=== PATIENT | male | born 1985 | race Caucasian/White ===

== ENCOUNTER → 2016-08-10 | Outpatient (CLI) | payer BC, OTHER ==
[~2016-08-10] MED LIST: DIVA125C PO; MULTTAB PO
[2016-08-10 14:32] LABS: BASO % 0.3 %; BASO ABS # 0.02 K/uL (0-0.2); COMPLETE YES; HEMATOCRIT 47.5 % (42-52); IG% 0.1 %; LYMPH % 27.8 %; LYMPH ABS # 2.21 K/uL (1.2-3.4); MEAN CELL VOLUME 92.6 fL (80-100); MEAN CORPUSCULAR HEMOGLOBIN 30.6 pg (25-34); MEAN CORPUSCULAR HGB CONC 33.1 g/dl (32-36); MEAN PLATELET VOLUME 11.5 fL (7.4-10.4); MONO % 12.3 %; NEUT % 58.5 %; PLATELET COUNT 195 K/uL (130-400); RED BLOOD COUNT 5.13 M/uL (4.7-6.1); WHITE BLOOD COUNT 7.94 K/uL (4.8-10.8)
[2016-08-10 15:24] LABS: ALT/SGPT 29 U/L (12-78); AST/SGOT 17 U/L (15-37); BLOOD UREA NITROGEN 9 mg/dl (7-18); BUN/CREATININE RATIO 20.7 (10-20); CALCIUM 9.6 mg/dl (8.5-10.1); CARBON DIOXIDE 36 mmol/L (21-32); CHLORIDE 100 mmol/L (98-107); CREATININE 0.43 mg/dl (0.60-1.40); GLUCOSE 74 mg/dl (70-99); POTASSIUM 4.2 mmol/L (3.5-5.1); SODIUM 138 mmol/L (136-145)
[2016-08-10 15:27] LABS: ALB/GLOB RATIO 0.9 (0.9-2); ALKALINE PHOSPHATASE 82 U/L (45-117)
== END | disposition home or self-care (01) ==
LOC: C.LABBC 10:06
PROVIDERS: ATTEND Internal Medicine
DX: G40.909 Epilepsy, unspecified, not intractable, without status epilepticus (principal)

== ENCOUNTER → 2017-07-25 | Outpatient (CLI) | payer BC, OTHER ==
[2017-07-25 14:10] LABS: HEMATOCRIT 45.4 % (42-52); HEMOGLOBIN 15.4 g/dL (14.0-18.0); MEAN CORPUSCULAR HEMOGLOBIN 31.6 pg (25-34); MEAN CORPUSCULAR HGB CONC 33.9 g/dl (32-36); MEAN PLATELET VOLUME 10.7 fL (7.4-10.4); PLATELET COUNT 216 K/uL (130-400); RED CELL DISTRIBUTION WIDTH CV 13.2 % (11.5-14.5)
[2017-07-25 14:21] LABS: ALBUMIN 3.3 gm/dl (3.4-5.0); ALT/SGPT 21 U/L (12-78); AST/SGOT 15 U/L (15-37); BLOOD UREA NITROGEN 10 mg/dl (7-18); CALCIUM 9.6 mg/dl (8.5-10.1); CARBON DIOXIDE 34 mmol/L (21-32); CREATININE 0.43 mg/dl (0.60-1.40); GLUCOSE 86 mg/dl (70-99); POTASSIUM 4.1 mmol/L (3.5-5.1); SODIUM 134 mmol/L (136-145)
[2017-07-25 14:23] LABS: ALKALINE PHOSPHATASE 80 U/L (45-117); TOTAL PROTEIN 7.7 gm/dl (6.4-8.2)
== END | disposition home or self-care (01) ==
LOC: C.LABBC 10:34
PROVIDERS: ATTEND Internal Medicine
DX: G40.909 Epilepsy, unspecified, not intractable, without status epilepticus (principal)

== ENCOUNTER 2021-06-11 12:12 | Inpatient (IN) ==
--- NOTE | 2021-06-11 12:33 | Emergency Department Note ---
Impression & Plan Acute hypoxemic respiratory failure, Scoliosis, Aspiration pneumonia, CP (cerebral palsy), Constipation ED Provider Note NAME: ANGELINE PIPER AGE: 35 SEX: M : 1985 ARRIVES VIA: Walk-In INFORMANT: Patient, ED PROVIDER(S): Dylan Canela MD Chief Complaint: Leg swelling, concern for left lower extremity fracture HPI: Patient does present on history is limited given the patient's history of intellectual disability, cerebral palsy and nonverbal status. Family was concerned as the patient has had increasing Gerardo fussy disposition and he seems to be putting his right leg over his left. The patient does have a prior history of a left leg fracture but was only placed in a cast never receiving surgery. The patient has had a bit of a wet cough. He is vaccinated for COVID. Patient does take everything by mouth and has been compliant with medications. No at home oxygen use. No recent falls or trauma. No recent travel. Parents are concerned about the possibility of osteoporosis and subsequent fracture. No reported fevers at home vomiting but the patient does suffer from chronic constipation. That he try some stool softeners but this has not seemed to greatly improve his symptoms. ROS: See HPI for pertinent positives and negatives. A total of 10 systems were reviewed and otherwise negative. Past medical history: See below Surgical history: See below Social history: See below Physical Exam: GENERAL: Small for age, wearing a mask. EYE EXAM: Normal conjunctiva. Opens and closes eyes. OROPHARYNX: Moist mucus membranes. NECK: Supple, no nuchal rigidity, no adenopathy, non-tender. No signs of meningismus. Not stridulous. LUNGS: Coarse sounds throughout. Normal chest wall mechanics. HEART: NSR, no MRG. ABDOMEN: Abdomen soft, no obvious masses. BACK: No cyst noted. SKIN: No rashes and no bruising. UPPER EXTREMITIES: Upper extremities are grossly normal. LOWER EXTREMITIES: Mild left lower extremity swelling compared to right. NEURO EXAM: Awake does not follow commands. Differential diagnoses: Reactive airway disease, pneumonia, pneumothorax, COPD, CHF, infections, cardiac ischemia, pulmonary embolism, musculoskeletal, gastrointestinal, as well as other pathologies. Course: Patient was seen and evaluated the bedside. Full history physical exam was performed. Imaging Studies: See Below Cardiac monitoring: An order was placed for continuous cardiac monitoring. The monitor shows a rate of 92 with sinus rhythm. MDM: Patient was seen due to concern for the possibility left lower extremity fracture. The patient did have a wet cough and was noted to be hypoxic in triage. Blood work is obtained along with blood cultures. I did speak with pharmacy given the patient's history of allergies and for treatment for possible community-acquired pneumonia. Recommended cefdinir and Flagyl. These were ordered. Child was ordered a dose of lactulose as well as family relates that he does have a history of some constipation. Patient is a white count of 12 with a normal H&H and platelet count. Patient's kidney function is unremarkable but does have hyponatremia noted. The patient did receive a breathing treatment. Troponin not detectable. Flu and COVID negative. Chest x-ray does not show any obvious findings but given the concern for hypoxia and the risk of aspiration patient did receive the antibiotics. No obvious new fracture but the patient does have a chronic left hip dislocation. After further discussion with the family as he does have some swelling will obtain a DVT ultrasound. After further discussion the patient was initially hesitant to have the patient admitted but given the patient's concern for hypoxemia and the fact that the [facility] do not have home oxygen readily available for the patient do believe that he would benefit from inpatient treatment and admission. I did speak with the on-call hospitalist Dr. Cat and the patient was admitted to the medicine service Critical Care: I have personally spent 55 minutes of critical care time in direct management of this patient. This includes bedside care, interpretation of diagnostic studies, and testing, discussion with consultants, patient, and family members, and other require inpatient management activities. This 55 minutes is in excess of all separately billable procedures. Past Med/Surg History Medical History (Updated 06/12/21 @ 08:52 by Dylan Canela MD) CP (cerebral palsy) Scoliosis Seizure Surgical History History of hip surgery S/P appendectomy S/P ventricular shunt placement Family History Grandmother (Maternal) Atrial fibrillation Grandfather (Paternal) Atrial fibrillation Social History Smoking Status: Never smoker Hx Alcohol Use: No Hx Substance Use: No Preferred Language: Togolese Communication Ability: Unable Visual Impairment: No Limitations Hearing Ability: Normal Collator Required: No Beliefs That Will Affect Care: None marital status: Single Current Living Situation: Family Other Information That Helps Us Care for You: No other: wheelchair dependence Feels Safe at Home: Yes Immunizations: Vaccinated for COVID-19 Allergies Allergies Allergy/AdvReac Type Severity Reaction Status Date / Time ampicillin Allergy Unknown . Verified 06/11/21 16:22 clindamycin Allergy Unknown . Verified 06/11/21 16:22 gentamicin Allergy Unknown UNKNOWN Unverified 06/11/21 16:22 Penicillins Allergy Unknown . Verified 06/11/21 16:22 Home Meds Previous Rx's Medication Instructions Recorded Depakote Sprinkles 125 mg 500 mg PO BID 90 Days #720 cap NS 11/04/20 capsule,delayed release (divalproex) albuterol sulfate 2.5 mg INH Q6H PRN #180 ml 03/31/21 Results & Data (ED) Vital Signs Vital Signs - 24 hr 06/11/21 12:26 06/11/21 14:13 06/11/21 14:14 Temperature 35.5 C L Temperature Source Temporal Artery Scan Pulse Rate 98 H Pulse Rate [Left Finger] 95 H Pulse Rate from SpO2 Sensor Pulse Rhythm [Left Finger] Regular Pulse Strength [Left Finger] Normal Respiratory Rate 16 20 Respiratory Effort / Characteristics Non-Labored Spontaneous Non-Labored Spontaneous Respiratory Depth Normal Normal Respiratory Pattern Regular Regular Blood Pressure 145/91 H Blood Pressure [Right Arm] 145/82 H Blood Pressure Mean 109 Blood Pressure Mean [Right Arm] 103 Blood Pressure Position Sitting Blood Pressure Position [Right Arm] Sitting Pulse Oximetry 88 L 95 82 L Oxygen Delivery Method Room Air Oxymask Oxygen Flow Rate 4 0 Sepsis Recent Fever Within 48 Hours No Sepsis New/Unexplained Change in Mental Status No Sepsis Action Taken by Nursing No Action Required Oxygen Flow Rate - Titration 4 Pulse Oximetry Post Tiitration 94 06/11/21 15:19 06/11/21 17:01 06/11/21 21:00 Temperature Temperature Source Pulse Rate Pulse Rate [Left Finger] 63 76 120 H Pulse Rate from SpO2 Sensor Pulse Rhythm [Left Finger] Regular Pulse Strength [Left Finger] Respiratory Rate 18 20 14 Respiratory Effort / Characteristics Spontaneous Spontaneous Respiratory Depth Normal Respiratory Pattern Blood Pressure Blood Pressure [Right Arm] 145/80 H Blood Pressure Mean Blood Pressure Mean [Right Arm] 101 Blood Pressure Position Blood Pressure Position [Right Arm] Pulse Oximetry 94 94 98 Oxygen Delivery Method Oxymask Oxymask Oxygen Flow Rate 5 4 Sepsis Recent Fever Within 48 Hours Sepsis New/Unexplained Change in Mental Status Sepsis Action Taken by Nursing Oxygen Flow Rate - Titration Pulse Oximetry Post Tiitration 06/11/21 23:00 06/11/21 23:48 06/12/21 00:00 Temperature Temperature Source Pulse Rate 104 H 85 88 Pulse Rate [Left Finger] Pulse Rate from SpO2 Sensor 101 H 93 H Pulse Rhythm [Left Finger] Pulse Strength [Left Finger] Respiratory Rate 18 17 14 Respiratory Effort / Characteristics Respiratory Depth Respiratory Pattern Blood Pressure 105/72 Blood Pressure [Right Arm] Blood Pressure Mean 83 Blood Pressure Mean [Right Arm] Blood Pressure Position Blood Pressure Position [Right Arm] Pulse Oximetry 97 97 97 Oxygen Delivery Method Oxymask Room Air Oxymask Oxygen Flow Rate 3 Sepsis Recent Fever Within 48 Hours Sepsis New/Unexplained Change in Mental Status Sepsis Action Taken by Nursing Oxygen Flow Rate - Titration Pulse Oximetry Post Tiitration Home Medications Current Medication List: was personally reviewed by me Laboratory Data Attestation: I reviewed the patient's lab results. Result diagrams: 06/11/21 13:10 06/11/21 13:10 Lab Results 06/11/21 06/11/21 06/11/21 Range/Units 13:10 13:10 15:06 WBC 12.27 H (4.8-10.8) K/uL RBC 4.77 (4.7-6.1) M/uL Hgb 15.1 (14.0-18.0) g/dL Hct 45.1 (42-52) % MCV 94.5 (80-100) fL MCH 31.7 (25-34) pg MCHC 33.5 (32-36) g/dL RDW Std Deviation 46.5 H (36.4-46.3) fL RDW Coeff of Tabby 13.4 (11.5-14.5) % Plt Count 188 (130-400) K/uL MPV 10.0 (7.4-10.4) fL Immature Gran % (Auto) 0.2 % Neut % (Auto) 77.6 % Lymph % (Auto) 9.2 % Barren % (Auto) 12.5 % Eos % (Auto) 0.4 % Baso % (Auto) 0.1 % Neut # (Auto) 9.52 H (1.4-6.5) K/uL Lymph # (Auto) 1.13 L (1.2-3.4) K/uL Barren # (Auto) 1.53 H (0.11-0.59) K/uL Eos # (Auto) 0.05 (0-0.5) K/uL Baso # (Auto) 0.01 (0-0.2) K/uL Immature Gran # (Auto) 0.03 H (0.00-0.02) K/uL Sodium 132 L (136-145) mmol/L Potassium 3.9 (3.5-5.1) mmol/L Chloride 91 L (98-107) mmol/L Carbon Dioxide 35 H (21-32) mmol/L Anion Gap 6 (3-11) BUN 8 (6-23) mg/dl Creatinine 0.32 L (0.6-1.4) mg/dl Est Cr Clr Drug Dosing Not Reportable Est GFR ( Amer) > 150.0 ml/min Est GFR (Non-Af Amer) > 150.0 ml/min BUN/Creatinine Ratio 25.0 H (10-20) Glucose 113 H (70-99(Fasting)) mg/dl Calcium 9.0 (8.5-10.1) mg/dl Total Bilirubin 0.3 (0.2-1.0) mg/dl AST 22 (13-39) U/L ALT 17 (7-52) U/L Alkaline Phosphatase 78 (34-104) U/L Troponin I < 0.03 (0-0.04) ng/ml Total Protein 7.1 (6.0-8.3) gm/dl Albumin 3.9 (3.4-5.0) gm/dl Globulin 3.2 (2.5-4.0) gm/dl Albumin/Globulin Ratio 1.2 (0.9-2) TSH (0.300-4.500) uIu/ml Influ A Molecular Assay (Negative) Influ B Molecular Assay (Negative) SARS-CoV-2, RNA, NAAT NEGATIVE (NEGATIVE) 06/11/21 06/11/21 Range/Units 15:06 Unknown WBC (4.8-10.8) K/uL RBC (4.7-6.1) M/uL Hgb (14.0-18.0) g/dL Hct (42-52) % MCV (80-100) fL MCH (25-34) pg MCHC (32-36) g/dL RDW Std Deviation (36.4-46.3) fL RDW Coeff of Tabby (11.5-14.5) % Plt Count (130-400) K/uL MPV (7.4-10.4) fL Immature Gran % (Auto) % Neut % (Auto) % Lymph % (Auto) % Barren % (Auto) % Eos % (Auto) % Baso % (Auto) % Neut # (Auto) (1.4-6.5) K/uL Lymph # (Auto) (1.2-3.4) K/uL Barren # (Auto) (0.11-0.59) K/uL Eos # (Auto) (0-0.5) K/uL Baso # (Auto) (0-0.2) K/uL Immature Gran # (Auto) (0.00-0.02) K/uL Sodium (136-145) mmol/L Potassium (3.5-5.1) mmol/L Chloride (98-107) mmol/L Carbon Dioxide (21-32) mmol/L Anion Gap (3-11) BUN (6-23) mg/dl Creatinine (0.6-1.4) mg/dl Est Cr Clr Drug Dosing Est GFR ( Amer) ml/min Est GFR (Non-Af Amer) ml/min BUN/Creatinine Ratio (10-20) Glucose (70-99(Fasting)) mg/dl Calcium (8.5-10.1) mg/dl Total Bilirubin (0.2-1.0) mg/dl AST (13-39) U/L ALT (7-52) U/L Alkaline Phosphatase (34-104) U/L Troponin I (0-0.04) ng/ml Total Protein (6.0-8.3) gm/dl Albumin (3.4-5.0) gm/dl Globulin (2.5-4.0) gm/dl Albumin/Globulin Ratio (0.9-2) TSH 2.914 (0.300-4.500) uIu/ml Influ A Molecular Assay Negative (Negative) Influ B Molecular Assay Negative (Negative) SARS-CoV-2, RNA, NAAT (NEGATIVE) Administered Medications Albuterol (Albuterol 0.083% Nebu Soln 3 Ml Vial) 2.5 mg NEB Q6R CHERIE; Protocol Stop: 07/12/21 04:11 Last Admin: 06/12/21 07:22 Dose: 2.5 mg Documented by: [id number] Admin: 06/12/21 05:06 Dose: Not Given Documented by: [id number] Divalproex Sodium (Divalproex Sodium Sprinkle/Del-Rel 125 Mg Cap) 500 mg PO BID CHERIE Stop: 07/12/21 04:29 Last Admin: 06/12/21 04:59 Dose: 500 mg Documented by: [id number] Ampicillin Sodium/Sulbactam Sodium 1,500 mg/ Sodium Chloride 104 mls @ 200 mls/hr IV Q6H CHERIE; Protocol Stop: 06/18/21 19:59 Last Infusion: 06/12/21 05:23 Dose: 0 mls/hr Documented by: [id number] Admin: 06/12/21 04:40 Dose: 200 mls/hr Documented by: [id number] Infusion: 06/11/21 21:11 Dose: 0 mls/hr Documented by: [id number] Admin: 06/11/21 20:39 Dose: 200 mls/hr Documented by: [id number] Discontinued Medications Acetaminophen (Acetaminophen 325 Mg Tab) 650 mg PO NOW STA Stop: 06/11/21 20:00 Last Admin: 06/11/21 21:32 Dose: Not Given Documented by: [id number] Acetaminophen (Acetaminophen 325 Mg Tab) Confirm Administered Dose 650 mg .ROUTE .STK-MED ONE Stop: 06/11/21 20:22 Last Admin: 06/11/21 20:40 Dose: 650 mg Documented by: [id number] Albuterol (Albut/Ipratrop 3mg/0.5mg Neb 3 Ml Vial) 3 ml NEB NOW STA; Protocol Stop: 06/11/21 12:57 Last Admin: 06/11/21 13:23 Dose: 3 ml Documented by: [id number] Albuterol (Albut/Ipratrop 3mg/0.5mg Neb 3 Ml Vial) 12 ml NEB ONE ONE; Protocol Stop: 06/11/21 14:56 Last Admin: 06/11/21 15:17 Dose: 12 ml Documented by: [id number] Ceftriaxone Sodium (Rocephin) 1,000 mg in 50 mls @ 100 mls/hr IV NOW STA Stop: 06/11/21 15:45 Last Infusion: 06/11/21 16:18 Dose: 0 mls/hr Documented by: [id number] Admin: 06/11/21 15:28 Dose: 100 mls/hr Documented by: [id number] Lactulose (Lactulose Syrup 20 Gm/30 Ml Udc) 20 gm PO NOW STA Stop: 06/11/21 15:52 Last Admin: 06/11/21 16:30 Dose: 20 gm Documented by: [id number] Metronidazole (Metronidazole 500 Mg Tab) 500 mg PO NOW STA Stop: 06/11/21 15:17 Last Admin: 06/11/21 16:22 Dose: 500 mg Documented by: [id number] Imaging Data Radiologist's Impression: Femur X-Ray 06/11/21 12:56 XR femur LT 2V routine CLINICAL HISTORY: h/o CP, osteoporosis, ?frx, prior distal femur frx COMPARISON: Abdominal series May 08, 2013. FINDINGS: Left femoral head is partially obscured but no acute fracture within the left femur is identified. There is chronic left hip dislocation and deformity of the left femoral head and acetabulum. No suspicious osseous lesion is present. IMPRESSION: 1. No acute fracture within the left femur. 2. Chronic left hip dislocation with chronic deformity of the left hip, acetabulum and knee. ACT 112: Negative or not required by law. Electronically signed by: Edward Westfall M.D. 06/11/2021 2:22 PM Hip/Pelvis X-Ray 06/11/21 12:56 XR hip LT 2V w pelvis CLINICAL HISTORY: Left hip pain. Evaluate for fracture. COMPARISON: Abdominal series May 08, 2013. FINDINGS: IT SALES CONSULTANT shunt catheter is partially imaged. There is a large amount stool within the rectum. Although suboptimally assessed on this exam, no left hip fracture is noted. There is chronic superior dislocation of the left femur, unchanged. Chronic deformity of the left acetabulum and left femoral head is noted. Left femoral head is partially obscured. IMPRESSION: 1. Left femoral head partially obscured but no acute fracture identified within the left hip. 2. Chronic left hip dislocation and deformity of the left acetabulum, unchanged since radiographs of May 08, 2013. 3. Large amount stool within the rectum. ACT 112: Negative or not required by law. Electronically signed by: Edward Westfall M.D. 06/11/2021 2:20 PM Chest X-Ray 06/11/21 12:57 XR chest 1V not portable CLINICAL HISTORY: weakness COMPARISON STUDY: Chest radiograph May 08, 2013. FINDINGS: Calcification suggestive of encrustation of the IT SALES CONSULTANT shunt is noted. IT SALES CONSULTANT shunt is partially imaged. Evaluation of the chest is difficult given severe scoliosis and chronic chest wall deformity. No gross abnormalities are identified. Large amount of stool is noted within the rectum. No pneumothorax. No definite pleural effusion. IMPRESSION: 1. Difficult study to interpret given severe scoliosis and congenital chest wall deformity. However, no acute findings identified. 2. Large amount stool within the rectum. 3. Calcifications suggestive of encrustation of visualized portions of the IT SALES CONSULTANT shunt catheter. ACT 112: Negative or not required by law. Electronically signed by: Edward Westfall M.D. 06/11/2021 2:24 PM Venous Doppler Study 06/11/21 16:19 LEFT LOWER EXTREMITY VENOUS DOPPLER CLINICAL HISTORY: Left leg swelling. COMPARISON STUDY: No previous studies for comparison. TECHNIQUE: Sonography of the deep venous system of the left lower extremity was performed. Compression and augmentation were evaluated. FINDINGS: The left common femoral, superficial femoral and popliteal veins were compressible. Augmentation was normal. Flow was shown within the deep calf vessels although the calf vessels were suboptimally assessed in this patient. Left lower extremity edema was noted. IMPRESSION: No evidence of deep venous thrombus within the left lower extremity although calf vessels difficult to assess. ACT 112: Negative or not required by law. Electronically signed by: Edward Westfall M.D. 06/11/2021 5:55 PM Discharge Plan Visit Data Chief Complaint: Swelling/Edema to Extremity Stated Complaint: LEFT LE SWELLING ED Provider: Dylan Canela Discharge Problem: Acute hypoxemic respiratory failure, Scoliosis, Aspiration pneumonia, CP (cerebral palsy), Constipation Patient Disposition: Admitted As Inpatient Discharge Instructions Interventions: ED Discharge Assessment Last Done: 06/12/21 02:59
[2021-06-11] MEDS ORDERED: ALBUT/IPRATROP 3MG/0.5MG NEB 3 ML VIAL NEB STA (12:56)
[2021-06-11 13:27] LABS: Basophils # (auto) 0.01 K/uL (0-0.2); Basophils % (auto) 0.1 %; Eosinophils # (auto) 0.05 K/uL (0-0.5); Eosinophils % (auto) 0.4 %; Hematocrit (blood only) 45.1 % (42-52); Hemoglobin 15.1 g/dL (14.0-18.0); Immature Granulocytes # (auto) 0.03 K/uL (0.00-0.02); Immature Granulocytes % (auto) 0.2 %; Lymphocytes # (auto) 1.13 K/uL (1.2-3.4); Lymphocytes % (auto) 9.2 %; Mean Corpuscular Hemoglobin 31.7 pg (25-34); Mean Corpuscular Hgb Conc 33.5 g/dL (32-36); Mean Corpuscular Volume 94.5 fL (80-100); Monocytes # (auto) 1.53 K/uL (0.11-0.59); Monocytes % (auto) 12.5 %; Neutrophils # (auto) 9.52 K/uL (1.4-6.5); Neutrophils % (auto) 77.6 %; Platelet Count 188 K/uL (130-400); RDW Coefficient of Variation 13.4 % (11.5-14.5); RDW Standard Deviation 46.5 fL (36.4-46.3); Red Blood Count 4.77 M/uL (4.7-6.1); White Blood Count 12.27 K/uL (4.8-10.8)
[2021-06-11 13:55] LABS: Alanine Aminotransferase 17 U/L (7-52); Albumin Globulin Ratio 1.2 (0.9-2); Albumin Level 3.9 gm/dl (3.4-5.0); Alkaline Phosphatase 78 U/L (34-104); Anion Gap 6 (3-11); Aspartate Aminotransferase 22 U/L (13-39); Bilirubin,Total 0.3 mg/dl (0.2-1.0); Blood Urea Nitrogen 8 mg/dl (6-23); Carbon Dioxide 35 mmol/L (21-32); Chloride 91 mmol/L (98-107); Est GFR (African American) > 150.0 ml/min; Est GFR (Non-African American) > 150.0 ml/min; Globulin 3.2 gm/dl (2.5-4.0); Glucose 113 mg/dl (70-99(Fasting)); Potassium 3.9 mmol/L (3.5-5.1); Sodium 132 mmol/L (136-145); Total Protein 7.1 gm/dl (6.0-8.3)
[2021-06-11 13:56] LABS: Troponin I < 0.03 ng/ml (0-0.04)
--- NOTE | 2021-06-11 14:22 | XRay Report ---
XR hip LT 2V w pelvis CLINICAL HISTORY: Left hip pain. Evaluate for fracture. COMPARISON: Abdominal series May 08, 2013. FINDINGS: BUSINESS SERVICES SPECIALIST SALES shunt catheter is partially imaged. There is a large amount stool within the rectum. Al though suboptimally assessed on this exam, no left hip fracture is noted. There is chronic superior d islocation of the left femur, unchanged. Chronic deformity of the left acetabulum and left femoral he ad is noted. Left femoral head is partially obscured. IMPRESSION: 1. Left femoral head partially obscured but no acute fracture identified within the left hip. 2. Chronic left hip dislocation and deformity of the left acetabulum, unchanged since radiographs of May 08, 2013. 3. Large amount stool within the rectum. ACT 112: Negative or not required by law. Electronically signed by: Edward Westfall M.D. 06/11/2021 2:20 PM
--- NOTE | 2021-06-11 14:23 | XRay Report ---
XR femur LT 2V routine CLINICAL HISTORY: h/o CP, osteoporosis, ?frx, prior distal femur frx COMPARISON: Abdominal series May 08, 2013. FINDINGS: Left femoral head is partially obscured but no acute fracture within the left femur is sherrill ntified. There is chronic left hip dislocation and deformity of the left femoral head and acetabulum. No suspicious osseous lesion is present. IMPRESSION: 1. No acute fracture within the left femur. 2. Chronic left hip dislocation with chronic deformity of the left hip, acetabulum and knee. ACT 112: Negative or not required by law. Electronically signed by: Edward Westfall M.D. 06/11/2021 2:22 PM
--- NOTE | 2021-06-11 14:26 | XRay Report ---
XR chest 1V not portable CLINICAL HISTORY: weakness COMPARISON STUDY: Chest radiograph May 08, 2013. FINDINGS: Calcification suggestive of encrustation of the PROPERTY INSURANCE INSPECTOR shunt is noted. PROPERTY INSURANCE INSPECTOR shunt is partially im aged. Evaluation of the chest is difficult given severe scoliosis and chronic chest wall deformity. N o gross abnormalities are identified. Large amount of stool is noted within the rectum. No pneumothor ax. No definite pleural effusion. IMPRESSION: 1. Difficult study to interpret given severe scoliosis and congenital chest wall deformity. However, no acute findings identified. 2. Large amount stool within the rectum. 3. Calcifications suggestive of encrustation of visualized portions of the PROPERTY INSURANCE INSPECTOR shunt catheter. ACT 112: Negative or not required by law. Electronically signed by: Edward Westfall M.D. 06/11/2021 2:24 PM
[2021-06-11] MEDS ORDERED: ALBUT/IPRATROP 3MG/0.5MG NEB 3 ML VIAL NEB ONE (14:55)
[2021-06-11] MEDS ORDERED: metroNIDAZOLE 500 MG TAB PO STA (15:16)
[2021-06-11] MEDS ORDERED: cefTRIAXone SODIUM 1,000 MG/50 ML BAG IV STA (15:16)
[2021-06-11 15:37] LABS: Influenza A virus by PCR Negative (Negative); Influenza B virus by PCR Negative (Negative)
[2021-06-11] MEDS ORDERED: LACTULOSE SYRUP 20 GM/30 ML UDC PO STA (15:51)
--- NOTE | 2021-06-11 17:57 | Ultrasound Report ---
LEFT LOWER EXTREMITY VENOUS DOPPLER CLINICAL HISTORY: Left leg swelling. COMPARISON STUDY: No previous studies for comparison. TECHNIQUE: Sonography of the deep venous system of the left lower extremity was performed. Compressi on and augmentation were evaluated. FINDINGS: The left common femoral, superficial femoral and popliteal veins were compressible. Augmen tation was normal. Flow was shown within the deep calf vessels although the calf vessels were subopti ivanna assessed in this patient. Left lower extremity edema was noted. IMPRESSION: No evidence of deep venous thrombus within the left lower extremity although calf vessels difficult to assess. ACT 112: Negative or not required by law. Electronically signed by: Edward Westfall M.D. 06/11/2021 5:55 PM
[2021-06-11] MEDS ORDERED: ACETAMINOPHEN 325 MG TAB PO STA (19:59)
--- NOTE | 2021-06-11 20:03 | History & Physical Report ---
Date of Service June 11, 2021 Assessment & Plan (1) Aspiration pneumonia: Plan: Recorded hypoxia on admission, mildly elevated WBC and NLR on oxygen - imaging studies are difficult to ascertain diagnosis - lung assessment with some scattered rhonchi - no sputum production - Unasyn 1 GM q6 IV - Schedule nebs for 24 hours - PCT in am (2) Left leg pain: Plan: Left leg with edema from knee down- parents originally thought it started in his quadricep - Continue to evaluate for cause of pain and edema - leg is not warm and without erythema - ultrasound without VTE - Patient does normally cross his legs with that leg being on the bottom - History of broken leg on that side as well (3) Constipation: Plan: Noted on imaging - patient has had 2 bm since then - hold on further aggressive regime - he is normally on mirilax every 3 days at home- will continue daily x2 here (4) Seizure: Plan: Continue Depakote (5) Scoliosis: Plan: chronic with cp (6) CP (cerebral palsy): Plan: No acute issues (7) Abdominal pain: Plan: ? Abdominal pain as this with constipation on arrival maybe causing some of his symptoms - continue with bowel support - will need to follow symptoms and labs History of Present Illness Primary Care Provider: Alexys Villalta MD 35 YOM with past medical history of: Cerebral Palsy, seizure disorder, constipation, scoliosis, EXTRUSION OPERATOR shunt in place, asthma. Patient came to the EMD today with his family for concern of left leg swelling and unlocalized discomfort. The patient does get agitated when he is in pain, but obviously he is unable to localize to where. He has been for the past 2 days been getting more agitated crying when he is being moved. In the EMD he was also noted to be hypoxic in the 80s on room air. There was concern for possible aspiration pneumonia with hypoxia. He had CXR completed and is difficult to interpret secondary to his underlying process. Had routine labs performed as well as ultrasound of his lower extremities to exclude dvt, and evaluation of his left leg with femur and hip and pelvis films. No acute process identified, but was notable for stool burden. He was also given a dose of lactulose and Unasyn in the EMD. The patient does have nebulizers at home, but he does not receive them very often. She endorses that he does have a cough occasionally but is able to expectorate his secretions, and these are normally clear white. Patient has not had any fevers and no reports of aspiration by the family. His WBC are mildly elevated to 12 with elevated NLR. His mom does not endorse any increase frequency in his urination or changes. His Covid test is and influenza is negative. Allergies Allergy/AdvReac Type Severity Reaction Status Date / Time ampicillin Allergy Unknown . Verified 06/11/21 16:22 clindamycin Allergy Unknown . Verified 06/11/21 16:22 gentamicin Allergy Unknown UNKNOWN Unverified 06/11/21 16:22 Penicillins Allergy Unknown . Verified 06/11/21 16:22 Home Medications Medication Instructions Recorded Confirmed Type Depakote Sprinkles 125 mg 500 mg PO BID 90 Days #720 cap NS 11/04/20 06/11/21 Rx capsule,delayed release (divalproex) albuterol sulfate 2.5 mg INH Q6H PRN #180 ml 03/31/21 06/11/21 Rx Past Med/Surg History Medical History (Updated 06/12/21 @ 08:52 by Dylan Canela MD) CP (cerebral palsy) Scoliosis Seizure Surgical History History of hip surgery S/P appendectomy S/P ventricular shunt placement Family History Grandmother (Maternal) Atrial fibrillation Grandfather (Paternal) Atrial fibrillation Social History Smoking Status: Never smoker Hx Alcohol Use: No Hx Substance Use: No Preferred Language: Bulgarian Communication Ability: Unable Visual Impairment: No Limitations Hearing Ability: Normal Client Experience Consultant Required: No Beliefs That Will Affect Care: None marital status: Single Current Living Situation: Family Other Information That Helps Us Care for You: No other: wheelchair dependence Feels Safe at Home: Yes Review of Systems Review of Systems: REVIEW OF SYSTEMS: obtained from family Constitutional: No fever, generalized pain or discomfort Respiratory: No cough, sputum, dyspnea Cardiovascular: No chest pain, tightness or palpitations Abdomen: (+) constipation, no vomiting Musculoskeletal: (+) left leg swelling, pain, history of broken leg, contractures Neurologic: (+) Cerebral Palsy, seizure Skin: No rash or itch Physical Exam Physical Exam: PHYSICAL EXAM: General: awake at his baseline mental state with family, with normal eye roving Head: Normocephalic, atraumatic ENT: PERRLA, Neuro: Cerebral palsy, patient is awake, contractures to arms, kyphosis, and contractures to feet Chest: equal rise and fall of the chest, no accessory muscle use, no heaves or thrills, clear to auscultation, oxymask 2 liters Cardiac: Regular rate and rhythm, telemetry reviewed, skin warm dry, cap refill <3 seconds, peripheral pulses +2 no JVD, no murmur, no JVD, no edema GI: NABS x 4 quadrants, tympany on percussion, had 2 normal bowel movements today : incontinent wears depends Results & Data Results & Data ([facility]) Vital Signs (Past 12 Hours) Vital Signs Temp Pulse Pulse Resp BP BP Pulse Ox 06/11/21 17:01 76 20 94 06/11/21 15:19 63 18 94 06/11/21 14:14 82 L 06/11/21 14:13 95 H 20 145/82 H 95 06/11/21 12:26 35.5 C L 98 H 16 145/91 H 88 L Laboratory Results Laboratory Results - last 24 hr 06/11/21 06/11/21 06/11/21 13:10 13:10 15:06 WBC 12.27 H RBC 4.77 Hgb 15.1 Hct 45.1 MCV 94.5 MCH 31.7 MCHC 33.5 RDW Std Deviation 46.5 H RDW Coeff of Tabby 13.4 Plt Count 188 MPV 10.0 Immature Gran % (Auto) 0.2 Neut % (Auto) 77.6 Lymph % (Auto) 9.2 [place] % (Auto) 12.5 Eos % (Auto) 0.4 Baso % (Auto) 0.1 Neut # (Auto) 9.52 H Lymph # (Auto) 1.13 L [place] # (Auto) 1.53 H Eos # (Auto) 0.05 Baso # (Auto) 0.01 Immature Gran # (Auto) 0.03 H Sodium 132 L Potassium 3.9 Chloride 91 L Carbon Dioxide 35 H Anion Gap 6 BUN 8 Creatinine 0.32 L Est Cr Clr Drug Dosing Not Reportable Est GFR ( Amer) > 150.0 Est GFR (Non-Af Amer) > 150.0 BUN/Creatinine Ratio 25.0 H Glucose 113 H Calcium 9.0 Total Bilirubin 0.3 AST 22 ALT 17 Alkaline Phosphatase 78 Troponin I < 0.03 Total Protein 7.1 Albumin 3.9 Globulin 3.2 Albumin/Globulin Ratio 1.2 TSH Influ A Molecular Assay Influ B Molecular Assay SARS-CoV-2, RNA, NAAT NEGATIVE 06/11/21 06/11/21 15:06 Unknown WBC RBC Hgb Hct MCV MCH MCHC RDW Std Deviation RDW Coeff of Tabby Plt Count MPV Immature Gran % (Auto) Neut % (Auto) Lymph % (Auto) [place] % (Auto) Eos % (Auto) Baso % (Auto) Neut # (Auto) Lymph # (Auto) [place] # (Auto) Eos # (Auto) Baso # (Auto) Immature Gran # (Auto) Sodium Potassium Chloride Carbon Dioxide Anion Gap BUN Creatinine Est Cr Clr Drug Dosing Est GFR ( Amer) Est GFR (Non-Af Amer) BUN/Creatinine Ratio Glucose Calcium Total Bilirubin AST ALT Alkaline Phosphatase Troponin I Total Protein Albumin Globulin Albumin/Globulin Ratio TSH 2.914 Influ A Molecular Assay Negative Influ B Molecular Assay Negative SARS-CoV-2, RNA, NAAT Diagnostic Findings Femur X-Ray 06/11/21 12:56 XR femur LT 2V routine CLINICAL HISTORY: h/o CP, osteoporosis, ?frx, prior distal femur frx COMPARISON: Abdominal series May 08, 2013. FINDINGS: Left femoral head is partially obscured but no acute fracture within the left femur is identified. There is chronic left hip dislocation and deformity of the left femoral head and acetabulum. No suspicious osseous lesion is present. IMPRESSION: 1. No acute fracture within the left femur. 2. Chronic left hip dislocation with chronic deformity of the left hip, acetabulum and knee. ACT 112: Negative or not required by law. Electronically signed by: Edward Westfall M.D. 06/11/2021 2:22 PM Hip/Pelvis X-Ray 06/11/21 12:56 XR hip LT 2V w pelvis CLINICAL HISTORY: Left hip pain. Evaluate for fracture. COMPARISON: Abdominal series May 08, 2013. FINDINGS: EXTRUSION OPERATOR shunt catheter is partially imaged. There is a large amount stool within the rectum. Although suboptimally assessed on this exam, no left hip fracture is noted. There is chronic superior dislocation of the left femur, unchanged. Chronic deformity of the left acetabulum and left femoral head is noted. Left femoral head is partially obscured. IMPRESSION: 1. Left femoral head partially obscured but no acute fracture identified within the left hip. 2. Chronic left hip dislocation and deformity of the left acetabulum, unchanged since radiographs of May 08, 2013. 3. Large amount stool within the rectum. ACT 112: Negative or not required by law. Electronically signed by: Edward Westfall M.D. 06/11/2021 2:20 PM Chest X-Ray 06/11/21 12:57 XR chest 1V not portable CLINICAL HISTORY: weakness COMPARISON STUDY: Chest radiograph May 08, 2013. FINDINGS: Calcification suggestive of encrustation of the EXTRUSION OPERATOR shunt is noted. EXTRUSION OPERATOR shunt is partially imaged. Evaluation of the chest is difficult given severe scoliosis and chronic chest wall deformity. No gross abnormalities are identif ied. Large amount of stool is noted within the rectum. No pneumothorax. No definite pleural effusion. IMPRESSION: 1. Difficult study to interpret given severe scoliosis and congenital chest wall deformity. However, no acute findings identified. 2. Large amount stool within the rectum. 3. Calcifications suggestive of encrustation of visualized portions of the EXTRUSION OPERATOR shunt catheter. ACT 112: Negative or not required by law. Electronically signed by: Edward Westfall M.D. 06/11/2021 2:24 PM Venous Doppler Study 06/11/21 16:19 LEFT LOWER EXTREMITY VENOUS DOPPLER CLINICAL HISTORY: Left leg swelling. COMPARISON STUDY: No previous studies for comparison. TECHNIQUE: Sonography of the deep venous system of the left lower extremity was performed. Compression and augmentation were evaluated. FINDINGS: The left common femoral, superficial femoral and popliteal veins were compressible. Augmentation was normal. Flow was shown within the deep calf vess els although the calf vessels were suboptimally assessed in this patient. Left lower extremity edema was noted. IMPRESSION: No evidence of deep venous thrombus within the left lower extremity although calf vessels difficult to assess. ACT 112: Negative or not required by law. Electronically signed by: Edward Westfall M.D. 06/11/2021 5:55 PM Medications Administered Discontinued Medications Albuterol (Albut/Ipratrop 3mg/0.5mg Neb 3 Ml Vial) 3 ml NEB NOW STA; Protocol Stop: 06/11/21 12:57 Last Admin: 06/11/21 13:23 Dose: 3 ml Documented by: [id number] Albuterol (Albut/Ipratrop 3mg/0.5mg Neb 3 Ml Vial) 12 ml NEB ONE ONE; Protocol Stop: 06/11/21 14:56 Last Admin: 06/11/21 15:17 Dose: 12 ml Documented by: [id number] Ceftriaxone Sodium (Rocephin) 1,000 mg in 50 mls @ 100 mls/hr IV NOW STA Stop: 06/11/21 15:45 Last Infusion: 06/11/21 16:18 Dose: 0 mls/hr Documented by: [id number] Admin: 06/11/21 15:28 Dose: 100 mls/hr Documented by: [id number] Lactulose (Lactulose Syrup 20 Gm/30 Ml Udc) 20 gm PO NOW STA Stop: 06/11/21 15:52 Last Admin: 06/11/21 16:30 Dose: 20 gm Documented by: [id number] Metronidazole (Metronidazole 500 Mg Tab) 500 mg PO NOW STA Stop: 06/11/21 15:17 Last Admin: 06/11/21 16:22 Dose: 500 mg Documented by: [id number] Home Medications Depakote Sprinkles 125 mg capsule,delayed release (divalproex) 500 mg PO BID 90 Days #720 cap NS 11/04/20 [Rx Confirmed 06/11/21] albuterol sulfate 2.5 mg INH Q6H PRN #180 ml 03/31/21 [Rx Confirmed 06/11/21] Code Status & VTE Plan Code Status CODE: FULL VTE: SCDs, Supervising Physician Co-Signing Physician Notes I personally saw and examined the patient. I verified all ibrahim points and agree with RUBEN Brewster with the following exceptions and/or additions: 35 year old male with cerebral palsy here for left leg swelling. Occurred after his mother had him sitting upright for an excessive amount that day. O/E Chronic contractures of all 4 extremities, 2+ pedal edema left leg 1+ right leg. Chest - reduced throughout A/P Possible aspiration pneumonia - Agree with Unasyn given new O2 requirement, consider CT chest if hypoxia persistent as CXR not interpretable given severe scoliosis Left leg swelling - suspect venous insufficiency, no fracture identified on imaging and no DVT on US doppler - elevate as needed and use NADER rdz PG Care Time/CCT Total # of Minutes Spent Total Time Spent with Patient: Total time spent is greater than 50% in coordination of care (as documented) at patient's floor/unit and/or counseling patient: Coding Level of Care Code 65176 Initial Inpt Care Lvl 2 Diagnoses Constipation K59.00 Seizure R56.9 Scoliosis M41.9 CP (cerebral palsy) G80.9 Left leg pain M79.605 Aspiration pneumonia J69.0 Abdominal pain R10.9
[2021-06-11] MEDS ORDERED: ACETAMINOPHEN 325 MG TAB ONE (20:21)
[2021-06-11] MEDS: AMPICILLIN/SULBACTAM SOD 1,500 MG in 0.9 % SODIUM CHLORIDE 100 ML IV SCH (20:39)
[2021-06-12] MEDS ORDERED: ALBUTEROL 0.083% NEBU SOLN 3 ML VIAL INH PRN (04:12)
[2021-06-12] MEDS: AMPICILLIN/SULBACTAM SOD 1,500 MG in 0.9 % SODIUM CHLORIDE 100 ML IV SCH ×4 (04:40→20:42)
[2021-06-12] MEDS: ALBUTEROL 0.083% NEBU SOLN 3 ML VIAL NEB SCH ×5 (04:51→19:58)
[2021-06-12] MEDS: DIVALPROEX SODIUM SPRINKLE/DEL-REL 125 MG CAP PO SCH ×3 (04:59→16:21)
[2021-06-12] MEDS: PSYLLIUM 58.6% POWDER PACKET PO SCH (09:35)
--- NOTE | 2021-06-12 09:41 | XRay Report ---
XR tibia fibula LT 2V CLINICAL HISTORY: Left leg pain. Evaluate for fracture. COMPARISON: None FINDINGS: No acute fracture within the left tibia or fibula is noted. Chronic deformity of the left knee and foot is incidentally noted. Suspected left lower extremity swelling is noted, greatest along the dorsal aspect of the left. No osseous lesions are noted. IMPRESSION: 1. No acute fracture identified within the left tibia or fibula. 2. Left lower extremity soft tissue swelling. 3. No osseous lesions identified. ACT 112: Negative or not required by law. Electronically signed by: Edward Westfall M.D. 06/12/2021 9:40 AM
[2021-06-12] MEDS ORDERED: Nursing to Pharmacy Communication SCH (12:00)
[2021-06-12] MEDS ORDERED: MAGNESIUM HYDROXIDE SUSP 30 ML UDC PO ONE (17:08)
--- NOTE | 2021-06-12 20:27 | Hospitalist Progress Note ---
Date of Service June 12, 2021 Assessment & Plan (1) Aspiration pneumonia: Plan: Recorded hypoxia on admission, mildly elevated WBC and NLR on oxygen - imaging studies are difficult to ascertain diagnosis - lung assessment with some scattered rhonchi - no sputum production - Unasyn 1 GM q6 IV - Schedule nebs for 24 hours - PCT in am: is negative. will thicken his fluids will consult speech therapy for input. will discuss with PCP and will obtain CT chest P/E protocol (2) Left leg pain: Plan: Left leg with edema from knee down- parents originally thought it started in his quadricep - Continue to evaluate for cause of pain and edema - leg is not warm and without erythema - ultrasound without VTE - Patient does normally cross his legs with that leg being on the bottom - History of broken leg on that side as well (3) Constipation: Plan: Noted on imaging - patient has had 2 bm since then - hold on further aggressive regime - yesterday has about 5 BM. (4) Seizure: Plan: Continue Depakote (5) Scoliosis: Plan: chronic with cp (6) CP (cerebral palsy): Plan: No acute issues (7) Abdominal pain: Plan: ? Abdominal pain as this with constipation on arrival maybe causing some of his symptoms - continue with bowel support - will need to follow symptoms and labs Admission and Anticipated Discharge Date Admission Date: June 12, 2021 Subjective Patient is awake but unable to share complaints as he is nonverbal. His mother is at bedside and is updated. Appears patient is aspirating. Patient has required 3-9 liters as per nurse. Patient had multiple BM yesterday. Review of Systems Review of Systems: All systems reviewed & are unremarkable except as noted in HPI & below Physical Exam Physical Exam: General: awake at his baseline mental state with family, with normal eye roving Head: Normocephalic, atraumatic ENT: PERRLA, Neuro: Cerebral palsy, patient is awake, contractures to arms, kyphosis, and contractures to feet Chest: equal rise and fall of the chest, no accessory muscle use, no heaves or thrills, clear to auscultation, oxymask 2 liters Cardiac: Regular rate and rhythm, telemetry reviewed, skin warm dry, cap refill <3 seconds, peripheral pulses +2 no JVD, no murmur, no JVD, no edema GI: NABS x 4 quadrants : incontinent wears depends Results & Data Results & Data ([facility]) Vital Signs (Past 12 Hours) Vital Signs Temp Pulse Pulse Resp BP Pulse Ox 06/12/21 20:02 110 H 16 92 06/12/21 19:54 37.0 C 104 H 18 111/72 93 06/12/21 16:03 37.1 C 128 H 22 128/74 94 06/12/21 15:00 109 H 06/12/21 11:54 36.9 C 24 134/78 PG Care Time/CCT Total # of Minutes Spent Total Time Spent with Patient: Total time spent is greater than 50% in coordination of care (as documented) at patient's floor/unit and/or counseling patient: Coding Level of Care Code 33908 Subseq Hosp Care Lvl 3 Diagnoses Aspiration pneumonia J69.0 Aspiration pneumonia type: unspecified Laterality: unspecified laterality Lung location: unspecified part of lung Left leg pain M79.605 Constipation K59.00 Constipation type: unspecified constipation type Seizure R56.9 Scoliosis M41.9 Scoliosis type: unspecified scoliosis Spinal region: unspecified CP (cerebral palsy) G80.9 Abdominal pain R10.9 Time Spent (min) 35 (1) Scoliosis Scoliosis type: unspecified scoliosis Spinal region: unspecified Qualified Code(s): M41.9 - Scoliosis, unspecified (2) Aspiration pneumonia Aspiration pneumonia type: unspecified Laterality: unspecified laterality Lung location: unspecified part of lung Qualified Code(s): J69.0 - Pneumonitis due to inhalation of food and vomit (3) Constipation Constipation type: unspecified constipation type Qualified Code(s): K59.00 - Constipation, unspecified
[2021-06-12] MEDS ORDERED: OPTIRAY 320 125ml IV ONE (21:37)
--- NOTE | 2021-06-12 21:52 | CT Scan Report ---
CT angio chest PE protocol CLINICAL HISTORY: PE TECHNIQUE: Multidetector row helical CT of the chest was performed with angiographic protocol. Cade l and sagittal reformations were obtained. Coronal and sagittal MIPS were obtained from the axial carline a set and were submitted for review. Automated dose lowering techniques and/or adjustment according to patient size were utilized for this exam. Comparison: Comparison is made to chest one view 06/11/2021 FINDINGS: Exam is limited by extreme scoliosis. Lungs and pleura: There is near-total collapse of the left lung. Atelectasis versus scarring is seen. Heart and pericardium: Heart size is normal. No pericardial effusion. Vessels: No evidence of pulmonary embolism. Mediastinum and saeid: Unremarkable. Chest wall and lower neck: Unremarkable. Abdomen: Unremarkable. Bones: Severe scoliosis is seen. There is no evidence of acute fracture. IMPRESSION: 1. No evidence of pulmonary embolus. 2. Near complete collapse of the left lung. This appears progressed compared to prior chest one view 06/11/2021 in which some aerated left lung is seen. It is not evident whether this is secondary to po sitioning or due to an acute etiology such as mucous plugging. ACT 112: Negative or not required by law. Electronically signed by: Timmy Kemp M.D. 06/12/2021 9:51 PM
--- NOTE | 2021-06-12 23:10 | Communication Note ---
Date of Service: June 12, 2021 Paged by nurse due to concern for decreased fluid intake since arrival at the hospital. Patient is sleeping comfortably, with SpO2 maintaining >90% on 5L/min NC. HR fluctuates 100s-120s - sinus. Normotensive and afebrile. Heart tachycardic rate but regular rhythm without murmurs. No JVD, negative hepatojugular reflex, 1+ pitting edema to diaz only on the left. Right lung with crackles throughout and left lung with severely diminished sounds as well as crackles; no wheezes. Reviewed CTA chest showing near complete collapse of left lung. Admission labs showing Na 132 and Cl 91. Hyponatremia/Hypochloridemia: Likely secondary to decreased PO intake/dehydration. Kidney function intact. Started NSS @70cc/hr x1L. Repeat BMP in AM. Aspiration Pneumonia: Given CTA chest findings, patient may benefit from further RT measures such as percussion therapy - will defer to primary team in the AM. Continue abx.
[2021-06-12] MEDS: SODIUM CHLORIDE 0.9% 1000ML 1,000 ML IV SCH (23:28)
[2021-06-13] MEDS: ALBUTEROL 0.083% NEBU SOLN 3 ML VIAL NEB SCH ×4 (00:41→20:18)
[2021-06-13] MEDS: AMPICILLIN/SULBACTAM SOD 1,500 MG in 0.9 % SODIUM CHLORIDE 100 ML IV SCH ×4 (01:10→20:50)
[2021-06-13 06:42] LABS: Eosinophils # (auto) 0.03 K/uL (0-0.5); Eosinophils % (auto) 0.2 %; Hematocrit (blood only) 34.6 % (42-52); Hemoglobin 11.3 g/dL (14.0-18.0); Immature Granulocytes # (auto) 0.02 K/uL (0.00-0.02); Immature Granulocytes % (auto) 0.2 %; Lymphocytes # (auto) 1.24 K/uL (1.2-3.4); Mean Corpuscular Hemoglobin 31.3 pg (25-34); Mean Corpuscular Hgb Conc 32.7 g/dL (32-36); Mean Corpuscular Volume 95.8 fL (80-100); Monocytes # (auto) 1.74 K/uL (0.11-0.59); Neutrophils # (auto) 9.39 K/uL (1.4-6.5); Neutrophils % (auto) 75.6 %; Platelet Count 157 K/uL (130-400); RDW Coefficient of Variation 13.9 % (11.5-14.5); RDW Standard Deviation 49.2 fL (36.4-46.3); Red Blood Count 3.61 M/uL (4.7-6.1); White Blood Count 12.42 K/uL (4.8-10.8)
[2021-06-13 07:10] LABS: Anion Gap 5 (3-11); BUN Creatinine Ratio 23.5 (10-20); Blood Urea Nitrogen 8 mg/dl (6-23); Carbon Dioxide 35 mmol/L (21-32); Chloride 99 mmol/L (98-107); Est GFR (African American) > 150.0 ml/min; Est GFR (Non-African American) > 150.0 ml/min; Glucose 90 mg/dl (70-99(Fasting)); Magnesium 2.1 mg/dl (1.7-2.4); Phosphorus 2.6 mg/dl (2.5-4.9); Potassium 3.1 mmol/L (3.5-5.1); Sodium 139 mmol/L (136-145)
[2021-06-13] MEDS: DIVALPROEX SODIUM SPRINKLE/DEL-REL 125 MG CAP PO SCH ×2 (12:11→16:51)
--- NOTE | 2021-06-13 13:17 | Pulmonary Consultation ---
Date of Consultation June 13, 2021 Assessment & Plan (1) Acute hypoxemic respiratory failure: (2) Aspiration pneumonia: Aspiration pneumonia type: unspecified Laterality: unspecified laterality Lung location: unspecified part of lung Qualified Code(s): J69.0 - Pneumonitis due to inhalation of food and vomit (3) CP (cerebral palsy): (4) Chest wall deformity: 35-year-old male with a history of severe cerebral palsy and a noncommunicative state presenting to the hospital due to vague complaints. He was found to have hypoxia and there is concern for possible mucous plugging and/or aspiration pneumonitis/pneumonia. CT chest reviewed. There is severe deformity of the thoracic cage where it is difficult to outline anatomy. Right lung appears aerated with areas of groundglass opacities. Left lung appears largely collapsed with aeration seen of the apex. Unclear whether this represents an acute or chronic process. There also appears to be a dilated esophagus. Unfortunately given the patient's chronic conditions and risk for respiratory failure, I would recommend against invasive interventions such as bronchoscopy. Would recommend conservative therapy such as airway clearance by manual percussion, nebulized treatments and positioning. This was discussed with the patient's father. Continue with empiric antibiotics for possible aspiration pneumonia. Pneumatic vest therapy is not possible given the patient's severe physical deformities. Continue to aim for oxygen saturations of 88% to 92%. Thank you for the consultation. Please call with questions. History of Present Illness Reason for Consultation: Hypoxia in a patient with severe cerebral palsy Attending Physician: James Zhao History of Present Illness This 35-year-old male with a past medical history of severe cerebral palsy, noncommunicative at baseline with 100% care from his parents at home. 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 He presented to the hospital on 06/11/2021 due to concerns of left leg swelling and discomfort. There is also concerns for possible constipation. He was found to be hypoxic on admission and a CT of his chest was obtained. CT chest revealed profound scoliosis with no evidence of pulmonary embolism. Near complete collapse of the left lung was seen. There is concern for mucous plugging by the hospitalist and pulmonary is consulted. Patient's father gives all history as the patient is noncommunicative. Speech therapy, pulmonary PA and bedside nurse are all present during the discussion. Patient's father notes that the patient appears to be at his baseline physically. He describes that he does not seem to be in any respiratory distress. He notes that his breathing pattern appears to be at his baseline. It is notable that patient is requiring oxygen mask at a flow rate of 11 L/min to maintain saturations in the high 80s. He has also had periods of tachycardia with heart rates in the 120s and 130s. Patient is currently on Unasyn for possible aspiration pneumonia. Mild leukocytosis was seen. Procalcitonin was unremarkable. Allergies Allergy/AdvReac Type Severity Reaction Status Date / Time ampicillin Allergy Unknown . Verified 06/11/21 16: clindamycin Allergy Unknown . Verified 06/11/21 16: gentamicin Allergy Unknown UNKNOWN Unverified 06/11/21 16: Penicillins Allergy Unknown . Verified 06/11/21 16:22 Home Medications Medication Instructions Recorded Confirmed Type Depakote Sprinkles 125 mg 500 mg PO BID 90 Days #720 cap NS 11/04/20 06/11/21 Rx capsule,delayed release (divalproex) albuterol sulfate 2.5 mg INH Q6H PRN #180 ml 03/31/21 06/11/21 Rx Patient History Medical History (Updated 06/13/21 @ 13:19 by Duran Son MD) Chest wall deformity CP (cerebral palsy) Scoliosis Seizure Surgical History History of hip surgery S/P appendectomy S/P ventricular shunt placement Family History Grandmother (Maternal) Atrial fibrillation Grandfather (Paternal) Atrial fibrillation Social History Smoking Status: Never smoker Hx Alcohol Use: No Hx Substance Use: No Preferred Language: Faroese Communication Ability: Unable Visual Impairment: No Limitations Hearing Ability: Normal Host And Hostess Required: No Beliefs That Will Affect Care: None marital status: Single Current Living Situation: Family other: wheelchair dependence Feels Safe at Home: Yes Assistive Devices: Oxygen - Continuous Review of Systems Review of Systems: All systems reviewed & are unremarkable except as noted in HPI & below Physical Exam Physical Exam: Constitutional: Nonverbal patient. Profound scoliosis. Eyes: Left gaze preference, but does scan. Ears nose, mouth and throat: Poor oral hygiene. Neck: Trachea deviated to the right. Respiratory: Rhonchorous sounding lung sounds bilaterally with significant diminishment on the left. Cardiovascular: Tachycardic. No murmurs. Gastrointestinal: Diminished bowel sounds. Soft abdomen. Musculoskeletal: Contractures of the hands. Paralysis of the lower extremities. Skin: No rashes, warm dry and intact. Neurologic: Difficult to assess given baseline severe cerebral palsy and noncommunicative state Psychiatric: Does not appear to be in any distress. Lethargic. Results & Data Results & Data ([facility]) Vital Signs (Past 12 Hours) Vital Signs Pulse Resp Pulse Ox 06/13/21 07:16 111 H 19 90 06/13/21 04:00 18 89 L PG Care Time/CCT Total # of Minutes Spent Total Time Spent with Patient: Total time spent is greater than 50% in coordination of care (as documented) at patient's floor/unit and/or counseling patient: Coding Level of Care Code 59856 Inpt Consult Level 4 Diagnoses Acute hypoxemic respiratory failure J96.01 Aspiration pneumonia J69.0 Aspiration pneumonia type: unspecified Laterality: unspecified laterality Lung location: unspecified part of lung CP (cerebral palsy) G80.9 Chest wall deformity M95.4
[2021-06-13] MEDS ORDERED: LEVALBUTEROL HCL 0.63 MG/3 ML NEB NEB PRN (13:27)
[2021-06-13] MEDS: PSYLLIUM 58.6% POWDER PACKET PO SCH (13:44)
[2021-06-13] MEDS: SODIUM CHLORIDE 0.9% 1000ML 1,000 ML IV SCH (13:45)
--- NOTE | 2021-06-13 20:50 | Hospitalist Progress Note ---
Date of Service June 13, 2021 Assessment & Plan (1) Aspiration pneumonia: Plan: Recorded hypoxia on admission, mildly elevated WBC and NLR on oxygen - imaging studies are difficult to ascertain diagnosis - lung assessment with some scattered rhonchi - no sputum production - Unasyn 1 GM q6 IV - Schedule nebs for 24 hours - PCT in am: is negative. will thicken his fluids appreciate input from speech Pulmonary recommending conservative management. (2) Left leg pain: Plan: Left leg with edema from knee down- parents originally thought it started in his quadricep - Continue to evaluate for cause of pain and edema - leg is not warm and without erythema - ultrasound without VTE - Patient does normally cross his legs with that leg being on the bottom - History of broken leg on that side as well (3) Constipation: Plan: Noted on imaging - patient has had 2 bm since then - hold on further aggressive regime - yesterday has about 5 BM. (4) Seizure: Plan: Continue Depakote (5) Scoliosis: Plan: chronic with cp (6) CP (cerebral palsy): Plan: No acute issues (7) Abdominal pain: Plan: ? Abdominal pain as this with constipation on arrival maybe causing some of his symptoms - continue with bowel support - will need to follow symptoms and labs Admission and Anticipated Discharge Date Admission Date: June 11, 2021 Subjective Patient nonverbal. Review of Systems Review of Systems: All systems reviewed & are unremarkable except as noted in HPI & below Physical Exam Physical Exam: General: awake at his baseline mental state with family, with normal eye roving Head: Normocephalic, atraumatic ENT: PERRLA, Neuro: Cerebral palsy, patient is awake, contractures to arms, kyphosis, and contractures to feet Chest: equal rise and fall of the chest, no accessory muscle use, no heaves or thrills, clear to auscultation, oxymask 2 liters Cardiac: Regular rate and rhythm, telemetry reviewed, skin warm dry, cap refill <3 seconds, peripheral pulses +2 no JVD, no murmur, no JVD, no edema GI: NABS x 4 quadrants : incontinent wears depends Results & Data Results & [facility] ([facility]) Vital Signs (Past 12 Hours) Vital Signs Temp Pulse Pulse Pulse Resp BP Pulse Ox 06/13/21 20:18 92 H 18 99 06/13/21 19:18 92 H 20 106/67 98 06/13/21 16:00 118 H 06/13/21 14:52 94 06/13/21 13:40 36.9 C 106 H 20 128/80 88 L 06/13/21 12:57 113 H 12 88 L PG Care Time/CCT Total # of Minutes Spent Total Time Spent with Patient: Total time spent is greater than 50% in coordination of care (as documented) at patient's floor/unit and/or counseling patient: Coding Level of Care Code 48774 Subseq Hosp Care Lvl 2 Diagnoses Aspiration pneumonia J69.0 Aspiration pneumonia type: unspecified Laterality: unspecified laterality Lung location: unspecified part of lung Left leg pain M79.605 Constipation K59.00 Constipation type: unspecified constipation type Seizure R56.9 Scoliosis M41.9 Scoliosis type: unspecified scoliosis Spinal region: unspecified CP (cerebral palsy) G80.9 Abdominal pain R10.9 Time Spent (min) 25 (1) Aspiration pneumonia Aspiration pneumonia type: unspecified Laterality: unspecified laterality Lung location: unspecified part of lung Qualified Code(s): J69.0 - Pneumonitis due to inhalation of food and vomit (2) Constipation Constipation type: unspecified constipation type Qualified Code(s): K59.00 - Constipation, unspecified (3) Scoliosis Scoliosis type: unspecified scoliosis Spinal region: unspecified Qualified Code(s): M41.9 - Scoliosis, unspecified
[2021-06-14] MEDS: ALBUTEROL 0.083% NEBU SOLN 3 ML VIAL NEB SCH ×3 (00:06→13:16)
[2021-06-14] MEDS: AMPICILLIN/SULBACTAM SOD 1,500 MG in 0.9 % SODIUM CHLORIDE 100 ML IV SCH ×3 (02:20→14:55)
[2021-06-14] MEDS: SODIUM CHLORIDE 0.9% 1000ML 1,000 ML IV SCH (04:00)
[2021-06-14] MEDS: PSYLLIUM 58.6% POWDER PACKET PO SCH (08:24)
[2021-06-14] MEDS: DIVALPROEX SODIUM SPRINKLE/DEL-REL 125 MG CAP PO SCH (08:24)
--- NOTE | 2021-06-14 13:47 | Communication Note ---
Date of Service: June 14, 2021 At rest, the patient was found to have a oxygen saturation below 88% on room air. It improved to above 89% on 3 liters oxymask. Due to cerebrla palsy, patient is unable to ambulate.
--- NOTE | 2021-06-16 11:34 | Discharge Summary ---
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 Patient came to the EMD today with his family for concern of left leg swelling and unlocalized discomfort. The patient does get agitated when he is in pain, but obviously he is unable to localize to where. He has been for the past 2 days been getting more agitated crying when he is being moved. In the EMD he was also noted to be hypoxic in the 80s on room air. There was concern for possible aspiration pneumonia with hypoxia. He had CXR completed and is difficult to interpret secondary to his underlying process. Had routine labs performed as well as ultrasound of his lower extremities to exclude dvt, and evaluation of his left leg with femur and hip and pelvis films. No acute process identified, but was notable for stool burden. He was also given a dose of lactulose and Unasyn in the EMD. The patient does have nebulizers at home, but he does not receive them very often. She endorses that he does have a cough occasionally but is able to expectorate his secretions, and these are normally clear white. Patient has not had any fevers and no reports of aspiration by the family. His WBC are mildly elevated to 12 with elevated NLR. His mom does not endorse any increase frequency in his urination or changes. His Covid test is and influenza is negative. Principal Diagnosis aspiration pneumonia Discharge Exam General: awake at his baseline mental state with family, with normal eye roving Head: Normocephalic, atraumatic ENT: PERRLA, Neuro: Cerebral palsy, patient is awake, contractures to arms, kyphosis, and contractures to feet Chest: equal rise and fall of the chest, no accessory muscle use, no heaves or thrills, clear to auscultation, oxymask 2 liters Cardiac: Regular rate and rhythm, telemetry reviewed, skin warm dry, cap refill <3 seconds, peripheral pulses +2 no JVD, no murmur, no JVD, no edema GI: NABS x 4 quadrants : incontinent wears depends Discharge Data Allergies Allergy/AdvReac Type Severity Reaction Status Date / Time ampicillin Allergy Unknown . Verified 06/11/21 16:22 clindamycin Allergy Unknown . Verified 06/11/21 16:22 gentamicin Allergy Unknown UNKNOWN Unverified 06/11/21 16:22 Penicillins Allergy Unknown . Verified 06/11/21 16:22 Consultations 06/11/21 17:48 ED Decision to Admit Stat 06/13/21 11:26 Consult Pulmonology Routine Ordered Studies 06/11/21 16:19 US venous doppler LE LT Stat 06/12/21 17:22 CT angio chest PE protocol Stat Hospital Course (1) Aspiration pneumonia: Recorded hypoxia on admission, mildly elevated WBC and NLR on oxygen - imaging studies are difficult to ascertain diagnosis - lung assessment with some scattered rhonchi - no sputum production - Unasyn 1 GM q6 IV - Schedule nebs for 24 hours - PCT in am: is negative. will thicken his fluids appreciate input from speech Pulmonary recommending conservative management. At discharge: Patient saturating well on 3 liters oxymask. Pulmonary recommends conservative management. Patient is a poor candidate for pulmonary intervention due to his anatomy. Due to risk of recurrent aspiration, may recommend thickening his fluids. continue hygiene 4x a day/ discharge on augmentin At rest, the patient was found to have a oxygen saturation below 88% on room air. It improved to above 89% on 3 liters oxymask. Due to cerebrla palsy, patient is unable to ambulate. (2) Left leg pain: Left leg with edema from knee down- parents originally thought it started in his quadricep - Continue to evaluate for cause of pain and edema - leg is not warm and without erythema - ultrasound without VTE - Patient does normally cross his legs with that leg being on the bottom - History of broken leg on that side as well (3) Constipation: Noted on imaging - patient has had 2 bm since then - hold on further aggressive regime - yesterday has about 5 BM. (4) Seizure: Continue Depakote (5) Scoliosis: chronic with cp (6) CP (cerebral palsy): No acute issues (7) Abdominal pain: ? Abdominal pain as this with constipation on arrival maybe causing some of his symptoms - continue with bowel support - will need to follow symptoms and labs Total Time Total Time Spent Total Time Spent (In Minutes): 32 Discharge Plan Discharge Items Patient Disposition: Home - Self-Care Reason For Visit: ASPIRATION PNA Discharge Diagnosis: ASPIRATION PNEUMONIA Activity: Resume your previous activity Non-emergency contact: Primary Care Provider Call non-emergency contact if: you have any medication questions Follow-up/Referrals: Alexys Villalta MD [Primary Care Provider] - 06/21/21 1:30 pm (With Radha SELLERS) Diet: Regular Addtl Attending Provider Instructions: Recommend home oxygen. You have been taking great care of your son. Of course with his cerebral palsy, this may make it hard for him to eat, and he is at risk of aspirating. Continue to do oral hygiene 4x a day. May consider thickener (example:thick-it) if he is having signs of aspirating (coughing) when he eats. Recommend followup with his PCP in 1-2 weeks. May consider miralax every other day. If remains constipated, may consider daily supplementation. Pending Studies at Discharge: No Stand-Alone Forms: [employer], Smoking Cessation Medications and DC Order Prescriptions: New polyethylene glycol 3350 [Miralax] 17 gram/dose powder 8.5 g PO DAILY PRN (Reason: constipation) 28 Days Qty: 119 RF: 0 amoxicillin-pot clavulanate 600-42.9 mg/5 mL suspension for reconstitution 10 ml PO BID 5 Days Qty: 100 RF: 0 Continued divalproex [Depakote Sprinkles] 125 mg capsule, delayed rel sprinkle 500 mg PO BID 90 Days Qty: 720 RF: 3 albuterol sulfate 2.5 mg /3 mL (0.083 %) solution for nebulization 2.5 mg INH Q6H PRN (Reason: asthma) Qty: 180 RF: 3 No Action (DME) Oxygen Home Liters Per Minute See Rx Instructions .Route Qty: 1 RF: 0 Discharge Orders: Discharge Order (Routine); Ordered 06/14/21 Ordered By: James Zhao Admission Data Admit Date/Time: 06/11/21 23:21 Attending Provider: James Zhao Admit Provider: Awilda Burns Primary Care Provider: Alexys Villalta Other Providers: Jb Cat ; Duran Son Other Interventions: Discharge Summary Assessment (RN) Last Done: 06/14/21 16:41 Coding Level of Care Code D/C DAY MANAGEMENT >30 MINS Diagnoses Aspiration pneumonia J69.0 Aspiration pneumonia type: unspecified Laterality: unspecified laterality Lung location: unspecified part of lung Left leg pain M79.605 Constipation K59.00 Constipation type: unspecified constipation type Seizure R56.9 Scoliosis M41.9 Scoliosis type: unspecified scoliosis Spinal region: unspecified CP (cerebral palsy) G80.9 Abdominal pain R10.9
== END 2021-06-14 17:44 | disposition home or self-care (01) | DRG 177 ==
LOC: ED 12:12 → 2W 06-12 00:58 → SUATTDRO 06-12 00:58 → 2W 06-12 02:59

== ENCOUNTER 2024-06-10 10:45 | Inpatient (IN) ==
--- NOTE | 2024-06-10 11:37 | XRay Report ---
XR chest 1V portable CLINICAL HISTORY: Hypoxia, thick phelgm, PNA COMPARISON STUDY: 06/12/2021 FINDINGS: There is stable mild cardiomegaly without pulmonary vascular congestion. There is severe sc oliosis. There is mild stranding opacity in the lung bases. No other consolidation or pleural effusio n seen. No pneumothorax. IMPRESSION: Atelectasis versus early pneumonia in the lung bases. ACT 112: Negative or not required by law. Electronically signed by: Luis Dimas M.D. 06/10/2024 11:36 AM
[2024-06-10 12:00] LABS: BUN Creatinine Ratio 23.1 (10-20); Calcium 9.8 mg/dl (8.6-10.3); Creatinine Clr Calc Pharmacy 122.1 ml/min
[2024-06-10 12:17] LABS: Basophils # (auto) 0.02 K/uL (0.00-0.20); Basophils % (auto) 0.2 %; Eosinophils # (auto) 0.04 K/uL (0.00-0.50); Eosinophils % (auto) 0.4 %; Hematocrit (blood only) 41.4 % (42.0-52.0); Hemoglobin 13.5 g/dl (14.0-18.0); Immature Granulocytes # (auto) 0.02 K/uL (0.01-0.20); Immature Granulocytes % (auto) 0.2 %; Lymphocytes # (auto) 1.66 K/uL (1.20-3.40); Lymphocytes % (auto) 16.8 %; Mean Corpuscular Hemoglobin 29.8 pg (25.0-34.0); Mean Corpuscular Hgb Conc 32.6 g/dL (32.0-36.0); Mean Corpuscular Volume 91.4 fL (80.0-100.0); Mean Platelet Volume 11.5 fL (9.4-12.4); Monocytes # (auto) 0.95 K/uL (0.11-0.59); Monocytes % (auto) 9.6 %; Neutrophils # (auto) 7.17 K/uL (1.40-6.50); Neutrophils % (auto) 72.8 %; Nucleated RBC # (auto) 0.02 K/uL (0.00-0.12); Nucleated RBC % (auto) 0.2 %; Platelet Count 90 K/uL (130-400); RBC Morphology Unremarkable; RDW Coefficient of Variation 14.6 % (11.5-14.5); RDW Standard Deviation 48.9 fL (36.4-46.3); Red Blood Count 4.53 M/uL (4.70-6.10); White Blood Count 9.86 K/ul (4.8-10.8)
--- NOTE | 2024-06-10 12:17 | Emergency Department Note ---
Impression & Plan Aspiration pneumonia, Acute hypoxemic respiratory failure, CP (cerebral palsy) ED Provider Note NAME: ANGELINE PIPER AGE: 38 SEX: M : 1985 ARRIVES VIA: Walk-In INFORMANT: Patient, ED PROVIDER(S): Bill Rhodes MD CHIEF COMPLAINT: Hypoxia, congestion HPI: This is a 38-year-old male with history of cerebral palsy, chronic restrictive lung disease presenting for shortness of breath. Patient previously had suspect otitis media complicated by hematoma. He was prescribed azithromycin and doxycycline for this. He was then seen and given levofloxacin. Completed all of these and is at new onset of thick phlegm and shortness of breath. Patient presents here with his mother and granulator operator. He was found to be 68% on room air. He is transferred to the trauma bay where he was suctioned. He was placed on 9 L of oxygen. He improved to 94% after significant suctioning. ROS: See above HPI for pertinent positives & negatives. A total of 10 systems reviewed and were otherwise negative. PAST MEDICAL HISTORY: See Below PAST SURGICAL HISTORY: See Below FAMILY HISTORY: See Below SOCIAL HISTORY: See Below HOME MEDICATIONS: See Below ALLERGIES: See Below VITALS: See Below PHYSICAL EXAMINATION: General: Chronically ill-appearing, frail Head: Atraumatic Ear, nose, throat: Normal external exam Respiratory: Rhonchi in all lung marcum Cardiovascular: Regular rate/rhythm, no murmur GI: soft, nontender, no guarding or rebound Extremities: Chronic contractures of all extremities, significant atrophy Neuro: Awake MEDICAL DECISION MAKING: This is a 38-year-old male with history of cerebral palsy presenting for shortness of breath. Patient appears to have significant secretions at this time and thick phlegm. Required suctioning. He went from 68% on room air to 94 with oxygen and suctioning. Consider pneumonia, pressure infection, mucous plugging -Will do basic blood work, x-ray, pressure panel -Lab work reveals no leukocytosis, hemoglobin 13.5. Sodium of 131, at his baseline. Hypochloremic otherwise. Lactic acid 2.4. -Negative for upper respiratory panel -Patient given 10 cc/kg bolus -Chest x-ray read as atelectasis versus early pneumonia in the lung bases -Based on the early pneumonia findings and 3 different biotics previously in the past few weeks, consider admission for pneumonia/hypoxia/mucous plugging. Family comfortable with this plan. -When taken off oxygen, patient quickly declines to low 80s Differential diagnosis: Pneumonia, mucous plugging, bronchiolitis, dehydration Independent History obtained from: Mother and granulator operator Diagnostics interpreted by me: ECG: None Cardiac Monitoring: An order was placed for continuous cardiac monitoring. The monitor shows a rate of 85 with sinus rhythm. Critical Care Note: I have personally spent 34 minutes of critical care time in the direct management of this patient. This includes bedside care, interpretation of diagnostic studies, and testing, discussion with consultants, patient, and family members, and other required patient management activities. This 34 minutes is in excess of all separately billable procedures. Past Med/Surg History Problem List (Updated 06/10/24 @ 17:52 by Bill Rhodes MD) Abnormal chest CT Pneumonia Acute hypoxic respiratory failure Leukocytosis (Acute) Hematoma (Acute) Cerebral palsy (Acute) Acute pain of right ear (Acute) Insomnia Hyponatremia Chronic restrictive lung disease Chronic constipation Chest wall deformity Acute hypoxemic respiratory failure (Acute) Aspiration pneumonia (Acute) Left leg pain Constipation (Acute) Seizure Scoliosis (Chronic) CP (cerebral palsy) (Chronic) Abdominal pain (Acute) CP (cerebral palsy) (Acute) Medical History Anxiety Surgical History S/P ventricular shunt placement History of hip surgery S/P appendectomy Family History Grandmother (Maternal) Atrial fibrillation Grandfather (Paternal) Atrial fibrillation Social History Smoking Status: Never smoker Hx Alcohol Use: No Hx Substance Use: No Preferred Language: [place] Communication Ability: Unable Visual Impairment: No Limitations 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 Verified 06/06/24 13:20 clindamycin Allergy Unknown . Verified 06/06/24 13:20 gentamicin Allergy Unknown UNKNOWN Verified 06/06/24 13:20 Penicillins Allergy Unknown . Verified 06/06/24 13:20 Home Meds Home Medications Medication Instructions Recorded Confirmed Oxygen Home 03/29/23 06/06/24 sertraline 20 mg/mL oral 0 mg PO HS 10/24/23 06/10/24 concentrate acetaminophen 160 mg/5 mL oral 160 mg PO QID PRN Pain/Fever 06/10/24 06/10/24 suspension (Children's Tylenol) Previous Rx's Medication Instructions Recorded fluticasone propionate 50 2 spray intranasal DAILY #48 mL 03/19/23 mcg/actuation nasal spray,suspension nystatin 100,000 unit/gram topical 1 applic topical BID PRN fungal 04/30/23 powder infections #30 grams polyethylene glycol 3350 17 17 g PO TID PRN constipation #850 07/06/23 gram/dose oral powder (Miralax) grams econazole nitrate 1 % topical cream 1 applic topical BID PRN rash #30 12/25/23 grams nystatin 100,000 unit/gram topical 1 applic topical BID PRN rash #30 12/25/23 cream grams Depakote Sprinkles 125 mg 500 mg (4 x 125 mg) PO BID 90 days 03/24/24 capsule,delayed release #720 caps (divalproex) albuterol sulfate 2.5 mg/3 mL 2.5 mg (3 mL) inhalation Q6H PRN 04/22/24 (0.083 %) solution for nebulization asthma #180 mL Results & Data (ED) Vital Signs Vital Signs - 24 hr 06/10/24 11:02 06/10/24 11:13 06/10/24 11:18 Temperature Source Temporal Artery Scan Pulse Rate 108 H 104 H Pulse Rate [Apical] Pulse Rate from SpO2 Sensor Respiratory Rate 20 Respiratory Effort / Characteristics Non-Labored Spontaneous Respiratory Depth Normal Respiratory Pattern Blood Pressure 130/81 175/135 H Blood Pressure [Right Arm] Blood Pressure Mean 97 150 Blood Pressure Mean [Right Arm] Pulse Oximetry 70 L Oxygen Delivery Method Room Air Oxygen Flow Rate Sepsis Recent Fever Within 48 Hours No Sepsis New/Unexplained Change in Mental Status N/A Sepsis Action Taken by Nursing No Action Required 06/10/24 11:21 06/10/24 11:27 06/10/24 11:30 Temperature Source Pulse Rate 80 70 Pulse Rate [Apical] Pulse Rate from SpO2 Sensor 79 68 Respiratory Rate 34 H 25 H Respiratory Effort / Characteristics Respiratory Depth Respiratory Pattern Blood Pressure 119/89 Blood Pressure [Right Arm] Blood Pressure Mean 102 Blood Pressure Mean [Right Arm] Pulse Oximetry 97 90 Oxygen Delivery Method Oxygen Flow Rate Sepsis Recent Fever Within 48 Hours Sepsis New/Unexplained Change in Mental Status Sepsis Action Taken by Nursing 06/10/24 11:30 06/10/24 11:33 06/10/24 11:36 Temperature Source Pulse Rate 70 Pulse Rate [Apical] 73 Pulse Rate from SpO2 Sensor 69 Respiratory Rate 26 H 23 Respiratory Effort / Characteristics Respiratory Depth Normal Respiratory Pattern Blood Pressure 119/89 Blood Pressure [Right Arm] 119/89 Blood Pressure Mean 102 Blood Pressure Mean [Right Arm] 99 Pulse Oximetry 93 93 Oxygen Delivery Method Oxymask Oxygen Flow Rate 9 Sepsis Recent Fever Within 48 Hours Sepsis New/Unexplained Change in Mental Status Sepsis Action Taken by Nursing 06/10/24 12:01 06/10/24 12:09 06/10/24 12:22 Temperature Source Pulse Rate 72 Pulse Rate [Apical] 71 Pulse Rate from SpO2 Sensor 73 Respiratory Rate 24 16 Respiratory Effort / Characteristics Non-Labored Spontaneous Respiratory Depth Normal Respiratory Pattern Regular Blood Pressure 135/70 Blood Pressure [Right Arm] 135/70 Blood Pressure Mean 74 Blood Pressure Mean [Right Arm] 91 Pulse Oximetry 90 90 Oxygen Delivery Method Room Air Oxygen Flow Rate Sepsis Recent Fever Within 48 Hours Sepsis New/Unexplained Change in Mental Status Sepsis Action Taken by Nursing 06/10/24 12:30 06/10/24 12:31 06/10/24 12:31 Temperature Source Pulse Rate 68 Pulse Rate [Apical] Pulse Rate from SpO2 Sensor 68 Respiratory Rate 21 Respiratory Effort / Characteristics Respiratory Depth Respiratory Pattern Blood Pressure 128/80 128/80 Blood Pressure [Right Arm] Blood Pressure Mean 101 101 Blood Pressure Mean [Right Arm] Pulse Oximetry 90 Oxygen Delivery Method Oxygen Flow Rate Sepsis Recent Fever Within 48 Hours Sepsis New/Unexplained Change in Mental Status Sepsis Action Taken by Nursing 06/10/24 12:31 06/10/24 12:31 06/10/24 12:54 Temperature Source Pulse Rate 67 Pulse Rate [Apical] Pulse Rate from SpO2 Sensor 66 Respiratory Rate 19 Respiratory Effort / Characteristics Respiratory Depth Respiratory Pattern Blood Pressure 128/80 128/80 Blood Pressure [Right Arm] Blood Pressure Mean 101 101 Blood Pressure Mean [Right Arm] Pulse Oximetry 92 Oxygen Delivery Method Oxygen Flow Rate Sepsis Recent Fever Within 48 Hours Sepsis New/Unexplained Change in Mental Status Sepsis Action Taken by Nursing 06/10/24 13:06 06/10/24 13:06 06/10/24 13:09 Temperature Source Pulse Rate 72 Pulse Rate [Apical] Pulse Rate from SpO2 Sensor 74 Respiratory Rate 21 Respiratory Effort / Characteristics Respiratory Depth Respiratory Pattern Blood Pressure 110/68 110/68 Blood Pressure [Right Arm] Blood Pressure Mean 79 79 Blood Pressure Mean [Right Arm] Pulse Oximetry 94 Oxygen Delivery Method Oxygen Flow Rate Sepsis Recent Fever Within 48 Hours Sepsis New/Unexplained Change in Mental Status Sepsis Action Taken by Nursing 06/10/24 13:30 06/10/24 14:00 06/10/24 14:27 Temperature Source Pulse Rate 63 62 65 Pulse Rate [Apical] Pulse Rate from SpO2 Sensor 57 L 65 66 Respiratory Rate 22 17 19 Respiratory Effort / Characteristics Respiratory Depth Respiratory Pattern Blood Pressure Blood Pressure [Right Arm] Blood Pressure Mean Blood Pressure Mean [Right Arm] Pulse Oximetry 94 96 95 Oxygen Delivery Method Oxygen Flow Rate Sepsis Recent Fever Within 48 Hours Sepsis New/Unexplained Change in Mental Status Sepsis Action Taken by Nursing 06/10/24 14:30 06/10/24 14:30 06/10/24 14:51 Temperature Source Pulse Rate 73 Pulse Rate [Apical] Pulse Rate from SpO2 Sensor 74 Respiratory Rate 26 H Respiratory Effort / Characteristics Respiratory Depth Respiratory Pattern Blood Pressure 100/69 100/69 Blood Pressure [Right Arm] Blood Pressure Mean 81 81 Blood Pressure Mean [Right Arm] Pulse Oximetry 91 Oxygen Delivery Method Oxygen Flow Rate Sepsis Recent Fever Within 48 Hours Sepsis New/Unexplained Change in Mental Status Sepsis Action Taken by Nursing 06/10/24 15:00 06/10/24 15:15 06/10/24 15:21 Temperature Source Pulse Rate 70 77 Pulse Rate [Apical] Pulse Rate from SpO2 Sensor 71 Respiratory Rate 23 Respiratory Effort / Characteristics Respiratory Depth Respiratory Pattern Blood Pressure 112/71 Blood Pressure [Right Arm] Blood Pressure Mean 81 Blood Pressure Mean [Right Arm] Pulse Oximetry 92 Oxygen Delivery Method Oxygen Flow Rate Sepsis Recent Fever Within 48 Hours Sepsis New/Unexplained Change in Mental Status Sepsis Action Taken by Nursing 06/10/24 15:30 06/10/24 16:12 06/10/24 16:30 Temperature Source Pulse Rate 73 Pulse Rate [Apical] Pulse Rate from SpO2 Sensor 78 73 Respiratory Rate 16 Respiratory Effort / Characteristics Respiratory Depth Respiratory Pattern Blood Pressure 96/73 L Blood Pressure [Right Arm] Blood Pressure Mean 88 Blood Pressure Mean [Right Arm] Pulse Oximetry 93 95 Oxygen Delivery Method Oxygen Flow Rate Sepsis Recent Fever Within 48 Hours Sepsis New/Unexplained Change in Mental Status Sepsis Action Taken by Nursing 06/10/24 16:30 06/10/24 16:57 06/10/24 17:04 Temperature Source Pulse Rate 69 69 Pulse Rate [Apical] Pulse Rate from SpO2 Sensor 69 67 Respiratory Rate 20 15 Respiratory Effort / Characteristics Respiratory Depth Respiratory Pattern Blood Pressure 89/60 L Blood Pressure [Right Arm] Blood Pressure Mean 66 Blood Pressure Mean [Right Arm] Pulse Oximetry 96 96 Oxygen Delivery Method Oxygen Flow Rate Sepsis Recent Fever Within 48 Hours Sepsis New/Unexplained Change in Mental Status Sepsis Action Taken by Nursing 06/10/24 17:06 Temperature Source Pulse Rate 77 Pulse Rate [Apical] Pulse Rate from SpO2 Sensor 76 Respiratory Rate 23 Respiratory Effort / Characteristics Respiratory Depth Respiratory Pattern Blood Pressure Blood Pressure [Right Arm] Blood Pressure Mean Blood Pressure Mean [Right Arm] Pulse Oximetry 94 Oxygen Delivery Method Oxygen Flow Rate Sepsis Recent Fever Within 48 Hours Sepsis New/Unexplained Change in Mental Status Sepsis Action Taken by Nursing Laboratory Data 06/10/24 11:24 06/10/24 11:24 Lab Results 06/10/24 06/10/24 06/10/24 Range/Units 11:24 11:26 13:17 WBC 9.86 (4.8-10.8) K/ul RBC 4.53 L (4.70-6.10) M/uL Hgb 13.5 L (14.0-18.0) g/dl Hct 41.4 L (42.0-52.0) % MCV 91.4 (80.0-100.0) fL MCH 29.8 (25.0-34.0) pg MCHC 32.6 (32.0-36.0) g/dL RDW Std Deviation 48.9 H (36.4-46.3) fL RDW Coeff of Tabby 14.6 H (11.5-14.5) % Plt Count 90 L (130-400) K/uL MPV 11.5 (9.4-12.4) fL Immature Gran % (Auto) 0.2 % Neut % (Auto) 72.8 % Lymph % (Auto) 16.8 % Long % (Auto) 9.6 % Eos % (Auto) 0.4 % Baso % (Auto) 0.2 % Neut # (Auto) 7.17 H (1.40-6.50) K/uL Lymph # (Auto) 1.66 (1.20-3.40) K/uL Long # (Auto) 0.95 H (0.11-0.59) K/uL Eos # (Auto) 0.04 (0.00-0.50) K/uL Baso # (Auto) 0.02 (0.00-0.20) K/uL Immature Gran # (Auto) 0.02 (0.01-0.20) K/uL Absolute Nucleated RBC 0.02 (0.00-0.12) K/uL Nucleated RBC % (auto) 0.2 % RBC Morphology Unremarkable Sodium 131 L (136-145) mmol/L Potassium 4.0 (3.5-5.1) mmol/L Chloride 86 L (98-107) mmol/L Carbon Dioxide 39 H (21-32) mmol/L Anion Gap 6 (3-11) BUN 6 (6-23) mg/dl Creatinine 0.26 L (0.6-1.4) mg/dl Est Cr Clr Drug Dosing 122.1 ml/min eGFR 163.12 BUN/Creatinine Ratio 23.1 H (10-20) Glucose 92 (70-99(Fasting)) mg/dl Lactate 2.4 H* Cancelled (0.4-2.0) mmol/L Calcium 9.8 (8.6-10.3) mg/dl Procalcitonin 0.06 (0-0.5) ng/ml Adenovirus (PCR) Not Detected (NotDetected) B. pertussis DNA (PCR) Not Detected (NotDetected) B.parapertussis DNA PCR Not Detected (NotDetected) C. pneumoniae DNA (PCR) Not Detected (NotDetected) Coronavirus OC43 (PCR) Not Detected (NotDetected) Coronavirus HKU1 (PCR) Not Detected (NotDetected) Coronavirus 229E (PCR) Not Detected (NotDetected) SARS-CoV-2 (PCR) Not Detected (NotDetected) Coronavirus NL63 (PCR) Not Detected (NotDetected) Human Metapneumovir PCR Not Detected (NotDetected) Influenza Type A (PCR) Not Detected (NotDetected) Influenza Type B (PCR) Not Detected (NotDetected) M. pneumoniae (PCR) Not Detected (NotDetected) Parainfluenza 1 (PCR) Not Detected (NotDetected) Parainfluenza 2 (PCR) Not Detected (NotDetected) Parainfluenza 3 (PCR) Not Detected (NotDetected) Parainfluenza 4 (PCR) Not Detected (NotDetected) RSV (PCR) Not Detected (NotDetected) Entero/Rhino (PCR) Not Detected (NotDetected) 06/10/24 Range/Units 14:46 WBC (4.8-10.8) K/ul RBC (4.70-6.10) M/uL Hgb (14.0-18.0) g/dl Hct (42.0-52.0) % MCV (80.0-100.0) fL MCH (25.0-34.0) pg MCHC (32.0-36.0) g/dL RDW Std Deviation (36.4-46.3) fL RDW Coeff of Tabby (11.5-14.5) % Plt Count (130-400) K/uL MPV (9.4-12.4) fL Immature Gran % (Auto) % Neut % (Auto) % Lymph % (Auto) % Long % (Auto) % Eos % (Auto) % Baso % (Auto) % Neut # (Auto) (1.40-6.50) K/uL Lymph # (Auto) (1.20-3.40) K/uL Long # (Auto) (0.11-0.59) K/uL Eos # (Auto) (0.00-0.50) K/uL Baso # (Auto) (0.00-0.20) K/uL Immature Gran # (Auto) (0.01-0.20) K/uL Absolute Nucleated RBC (0.00-0.12) K/uL Nucleated RBC % (auto) % RBC Morphology Sodium (136-145) mmol/L Potassium (3.5-5.1) mmol/L Chloride (98-107) mmol/L Carbon Dioxide (21-32) mmol/L Anion Gap (3-11) BUN (6-23) mg/dl Creatinine (0.6-1.4) mg/dl Est Cr Clr Drug Dosing ml/min eGFR BUN/Creatinine Ratio (10-20) Glucose (70-99(Fasting)) mg/dl Lactate 0.8 (0.4-2.0) mmol/L Calcium (8.6-10.3) mg/dl Procalcitonin (0-0.5) ng/ml Adenovirus (PCR) (NotDetected) B. pertussis DNA (PCR) (NotDetected) B.parapertussis DNA PCR (NotDetected) C. pneumoniae DNA (PCR) (NotDetected) Coronavirus OC43 (PCR) (NotDetected) Coronavirus HKU1 (PCR) (NotDetected) Coronavirus 229E (PCR) (NotDetected) SARS-CoV-2 (PCR) (NotDetected) Coronavirus NL63 (PCR) (NotDetected) Human Metapneumovir PCR (NotDetected) Influenza Type A (PCR) (NotDetected) Influenza Type B (PCR) (NotDetected) M. pneumoniae (PCR) (NotDetected) Parainfluenza 1 (PCR) (NotDetected) Parainfluenza 2 (PCR) (NotDetected) Parainfluenza 3 (PCR) (NotDetected) Parainfluenza 4 (PCR) (NotDetected) RSV (PCR) (NotDetected) Entero/Rhino (PCR) (NotDetected) Administered Medications Discontinued Medications Sodium Chloride (Nss) 1,000 mls @ 999 mls/hr IV .Q1H1M ONE Stop: 06/10/24 12:18 Last Admin: 06/10/24 12:23 Dose: Not Given Documented By: MAITE Sodium Chloride (Nss) 250 mls @ 999 mls/hr IV .Q16M ONE Stop: 06/10/24 12:32 Last Infusion: 06/10/24 13:05 Dose: Infused Documented By: Admin: 06/10/24 12:46 Dose: 999 mls/hr Documented By: MAITE Ceftriaxone Sodium (Rocephin) 2,000 mg in 50 mls @ 100 mls/hr IV NOW STA Stop: 06/10/24 14:32 Last Admin: 06/10/24 15:18 Dose: Not Given Documented By: FAWN Vancomycin HCl 500 mg/ Sodium (Chloride) 110 mls @ 200 mls/hr IV ONE ONE Stop: 06/10/24 16:47 Last Infusion: 06/10/24 17:15 Dose: Infused Documented By: Admin: 06/10/24 16:42 Dose: 200 mls/hr Documented By: FAWN Ioversol (Optiray 320 125ml) 50 ml IV ONCE ONE Stop: 06/10/24 15:47 Last Admin: 06/10/24 15:51 Dose: 50 ml Documented By: JOHNNY Imaging Data Radiologist's Impression: Chest X-Ray 06/10/24 11:18 XR chest 1V portable CLINICAL HISTORY: Hypoxia, thick phelgm, PNA COMPARISON STUDY: 06/12/2021 FINDINGS: There is stable mild cardiomegaly without pulmonary vascular congestion. There is severe scoliosis. There is mild stranding opacity in the lung bases. No other consolidation or pleural effusion seen. No pneumothorax. IMPRESSION: Atelectasis versus early pneumonia in the lung bases. ACT 112: Negative or not required by law. Electronically signed by: Luis Dimas M.D. 06/10/2024 11:36 AM Chest CTA 06/10/24 14:49 CT angio chest PE protocol CT DOSE: 284.78 mGy.cm HISTORY: PE. TECHNIQUE: Multiple CTA images of the chest were obtained after the intravenous administration of 50 ml Optiray. Coronal and sagittal MIPS were obtained from the axial data set and were submitted for review. All measurements were obtained according to NASCET criteria. A dose lowering technique was utilized adhering to the principles of ALARA. COMPARISON STUDY: 06/12/2021 FINDINGS: There is occlusion of the left mainstem bronchus by secretions with near complete collapse of the left lung. There are secretions in the right middle and lower lobe bronchus with collapse of the right middle and lower lobes. There is no pleural effusion or pneumothorax. No enlarged adenopathy. No pericardial effusion. No thoracic aortic dissection or aneurysm. No pulmonary embolism seen. There is severe scoliosis. IMPRESSION: 1. No pulmonary embolism seen. 2. Airway secretions with near complete collapse of the left lung and complete collapse of the right middle and right lower lobes. 3. Otherwise as described. ACT 112: Negative or not required by law. The above report was generated using voice recognition software. It may contain grammatical, syntax or spelling errors. Electronically signed by: Luis Dimas M.D. 06/10/2024 4:07 PM Discharge Plan Visit Data Chief Complaint: Congestion Stated Complaint: UPPER RESPITORY CONGESTION ED Provider: Bill Rhodes Discharge Problem: Aspiration pneumonia, Acute hypoxemic respiratory failure, CP (cerebral palsy) Patient Disposition: Still a Patient Discharge Instructions Interventions: ED Discharge Assessment Last Done: 06/10/24 17:34 Forms Stand Alone Forms: My [facility] [employer] Prescriptions Prescriptions: No Action fluticasone propionate 50 mcg/actuation spray,suspension 2 spray INTNAS DAILY Qty: 48 3RF Rx Instructions: administer into each nostril polyethylene glycol 3350 [Miralax] 17 gram/dose powder 17 g PO TID PRN (Reason: constipation) Qty: 850 0RF econazole nitrate 1 % cream 1 applic TOP BID PRN (Reason: rash) Qty: 30 1RF nystatin 100,000 unit/gram cream 1 applic topical BID PRN (Reason: rash) Qty: 30 1RF divalproex [Depakote Sprinkles] 125 mg capsule, delayed rel sprinkle 500 mg PO BID 90 Days Qty: 720 3RF Rx Instructions: Brand medically necessary nystatin 100,000 unit/gram powder 1 applic topical BID PRN (Reason: fungal infections) Qty: 30 1RF sertraline 20 mg/mL concentrate 0 mg PO HS Rx Instructions: Per caregiver, she gives the pt 10mg (0.5ml) by mouth daily as bedtime. Originally written for 20mg by mouth at bedtime (DME) Oxygen Home Liters Per Minute See Rx Instructions .Route Rx Instructions: 1.5 liters via N/C while sleeping per [facility] discharge albuterol sulfate 2.5 mg /3 mL (0.083 %) solution for nebulization 2.5 mg INH Q6H PRN (Reason: asthma) Qty: 180 3RF acetaminophen [Children's Tylenol] 160 mg/5 mL Suspension 160 mg PO QID PRN (Reason: Pain/Fever) Referrals Referrals: Pro,Alexys Farmer MD [Primary Care Provider] -
[2024-06-10] MEDS: SODIUM CHLORIDE 0.9% 1,000 ML IV ONE (12:23)
[2024-06-10] MEDS: SODIUM CHLORIDE 0.9% 250 ML IV ONE (12:46)
[2024-06-10 12:59] LABS: Adenovirus PCR Not Detected (NotDetected); Bordetella parapertussis PCR Not Detected (NotDetected); Bordetella pertussis PCR Not Detected (NotDetected); Chlamydia pneumoniae PCR Not Detected (NotDetected); Coronavirus 229E PCR Not Detected (NotDetected); Coronavirus CoV-2 (COVID19)PCR Not Detected (NotDetected); Coronavirus HKU1 PCR Not Detected (NotDetected); Coronavirus NL63 PCR Not Detected (NotDetected); Coronavirus OC43PCR Not Detected (NotDetected); Human Metapneumovirus PCR Not Detected (NotDetected); Influenza A PCR Not Detected (NotDetected); Influenza B PCR Not Detected (NotDetected); Mycoplasma pneumoniae PCR Not Detected (NotDetected); Parainfluenza Virus 1 PCR Not Detected (NotDetected); Parainfluenza Virus 2 PCR Not Detected (NotDetected); Parainfluenza Virus 3 PCR Not Detected (NotDetected); Parainfluenza Virus 4 PCR Not Detected (NotDetected); Respiratory Syncytial VirusPCR Not Detected (NotDetected); Rhinovirus/Enterovirus PCR Not Detected (NotDetected)
--- NOTE | 2024-06-10 14:22 | History & Physical Report ---
Date of Service June 10, 2024 Assessment & Plan (1) Pneumonia: (2) Acute hypoxic respiratory failure: (3) Cerebral palsy: Plan Srinivasan is a 38-year-old male with PMH of cerebral palsy, seizure, aspiration pneumonia, and chronic restrictive lung disease. He presented on 06/10 for congestion and productive cough. Patient is nonverbal at baseline. Patient's electrocardiograph technician/nurse (Lina) is at bedside and provides history. She reports that the patient normally has clear/loose phlegm production, but over the past few days it has grown thick/white, and has been difficult to clear from his lungs. #Pneumonia No leukocytosis; afebrile PCT ordered, pending CXR revealed atelectasis versus early pneumonia in the lung bases Blood cultures drawn in the ED Sputum culture ordered, pending Will cover for aspiration pneumonia given history Cefepime 2000 mg IV q12h Re: MERISSA salazar (mild rash as a child, unclear if true allergy) Vancomycin 500 mg IV q24h Elevate HOB, aspiration cautions # Acute hypoxic respiratory failure SpO2 dropped to 68% on RA on arrival Patient does use supplemental oxygen at home (1.5L NC when he sleeps) ? Mucous plugging v. PE Chest CTA ordered, pending Hypertonic 7% saline neb BID Incentive spirometry, flutter valve Titrate supplemental oxygen to maintain SpO2 >94% Continuous pulse oximetry Patient may require pulmonary consult for bronchoscopy if refractory to the above treatments #Cerebral palsy Chronic; noted Continue Depakote twice daily Disposition: Admit to PCU telemetry Full code Pured diet VTE PPx: Lovenox 30 mg SQ q24h History of Present Illness Chief Complaint: Congestion, hypoxia Primary Care Provider: Alexys Villalta MD Srinivasan is a 38-year-old male with PMH of cerebral palsy, seizure, aspiration pneumonia, and chronic restrictive lung disease. He presented on 06/10 for congestion and productive cough. Patient is nonverbal at baseline. Patient's electrocardiograph technician/nurse (Lina) is at bedside and provides history. She reports that the patient normally has clear/loose phlegm production, but over the past few days it has grown thick/white, and has been difficult to clear from his lungs. No fevers at home. Initially, the patient was on antibiotics at the beginning of May for an ear infection, but has had worsening convention since this time. Patient completed course of doxycycline, azithromycin, and levofloxacin without improvement. Patient's nurse reports that his SpO2 was 92% on RA this morning. He does use supplemental oxygen when he sleeps (1.5 L NC). No CPAP at night. Patient took his regular morning medicine today, including his Depakote. Nurse reports that he does not have difficulty swallowing, and usually takes his medication with applesauce, but he does have a full pured diet. No prior history of DVT/PE to her knowledge. In regard to the penicillin allergy listed, both patient's nurse/mother confirms that he only had a mild rash when he was a baby, and they are unsure if it is a true penicillin allergy. Patient was hypoxic on arrival at SpO2 of 70% on RA. Vitals otherwise stable. ED course: Ceftriaxone 2000 mg IV NSS 1250 mL IV Unable to obtain ROS at this time: Discussed with patient's mother (Meme) over the phone and confirmed that the patient is a full code. Allergies Allergy/AdvReac Type Severity Reaction Status Date / Time ampicillin Allergy Unknown . Verified 06/06/24 13:20 clindamycin Allergy Unknown . Verified 06/06/24 13:20 gentamicin Allergy Unknown UNKNOWN Verified 06/06/24 13:20 Penicillins Allergy Unknown . Verified 06/06/24 13:20 Home Medications Medication Instructions Recorded Confirmed Type fluticasone propionate 50 2 spray intranasal DAILY #48 mL 03/19/23 06/10/24 Rx mcg/actuation nasal spray,suspension Oxygen Home 03/29/23 06/06/24 History nystatin 100,000 unit/gram topical 1 applic topical BID PRN fungal 04/30/23 06/10/24 Rx powder infections #30 grams polyethylene glycol 3350 17 17 g PO TID PRN constipation #850 07/06/23 06/10/24 Rx gram/dose oral powder (Miralax) grams sertraline 20 mg/mL oral 0 mg PO HS 10/24/23 06/10/24 History concentrate econazole nitrate 1 % topical cream 1 applic topical BID PRN rash #30 12/25/23 06/10/24 Rx grams nystatin 100,000 unit/gram topical 1 applic topical BID PRN rash #30 12/25/23 06/10/24 Rx cream grams Depakote Sprinkles 125 mg 500 mg (4 x 125 mg) PO BID 90 days 03/24/24 06/10/24 Rx capsule,delayed release #720 caps (divalproex) albuterol sulfate 2.5 mg/3 mL 2.5 mg (3 mL) inhalation Q6H PRN 04/22/24 06/10/24 Rx (0.083 %) solution for nebulization asthma #180 mL acetaminophen 160 mg/5 mL oral 160 mg PO QID PRN Pain/Fever 06/10/24 06/10/24 History suspension (Children's Tylenol) Past Med/Surg History Problem List (Updated 06/10/24 @ 14:52 by Antony Ngo PA-C) Pneumonia Acute hypoxic respiratory failure Leukocytosis (Acute) Hematoma (Acute) Cerebral palsy (Acute) Acute pain of right ear (Acute) Insomnia Hyponatremia Chronic restrictive lung disease Chronic constipation Chest wall deformity Acute hypoxemic respiratory failure (Acute) Aspiration pneumonia (Acute) Left leg pain Constipation (Acute) Seizure Scoliosis (Chronic) CP (cerebral palsy) (Chronic) Abdominal pain (Acute) CP (cerebral palsy) (Acute) Medical History Anxiety Surgical History S/P ventricular shunt placement History of hip surgery S/P appendectomy Family History Grandmother (Maternal) Atrial fibrillation Grandfather (Paternal) Atrial fibrillation Social History Smoking Status: Never smoker Hx Alcohol Use: No Hx Substance Use: No Preferred Language: [place] Communication Ability: Unable Visual Impairment: No Limitations Hearing Ability: Normal Traffic Maintenance Officer Required: No Beliefs That Will Affect Care: None marital status: Single Current Living Situation: Family other: wheelchair dependence Feels Safe at Home: Yes Assistive Devices: Wheelchair Review of Systems Review of Systems: See HPI above Physical Exam 2 Physical Exam: General: no acute distress; non-toxic appearing; frail appearing; cooperative; SpO2 96% on 10L OxyMask HEENT: normocephalic, atraumatic; no scleral icterus; PERRLA; unable to assess vision and hearing Neck: supple; no lymphadenopathy; trachea midline Skin: warm, dry without signs of tenting; no cyanosis; no rashes, bruising, lesions, or erythema noted CV: chest wall NTP; RRR; S1/S2 normal; no murmurs/rubs/gallops; pulses intact and symmetric at radial, DP, and PT Lungs: no acute respiratory distress; barrel chested; symmetrical chest wall expansion; bibasilar crackles auscultated lower lung marcum bilaterally ABD: Soft, NTP; BS present; no rebound/guarding; no distention MSK: Internal rotation and significant muscular atrophy of the upper and lower extremities bilaterally; nonpitting edema in the lower extremities bilaterally Neuro: Nonverbal; no focal deficits appreciated; unable to assess sensation Results & Data Results & Data Vital Signs (Past 12 Hours) Vital Signs Pulse Pulse Resp BP BP Pulse Ox O2 Del Method 06/10/24 12:22 71 16 135/70 90 Room Air 06/10/24 11:36 73 23 119/89 93 Oxymask 06/10/24 11:18 104 H 06/10/24 11:02 108 H 20 130/81 70 L Room Air O2 Flow Rate 06/10/24 12:22 06/10/24 11:36 9 06/10/24 11:18 06/10/24 11:02 Laboratory Results Abnormal lab results 06/10/24 Range/Units 11:24 RBC 4.53 L (4.70-6.10) M/uL Hgb 13.5 L (14.0-18.0) g/dl Hct 41.4 L (42.0-52.0) % RDW Std Deviation 48.9 H (36.4-46.3) fL RDW Coeff of Tabby 14.6 H (11.5-14.5) % Plt Count 90 L (130-400) K/uL Neut # (Auto) 7.17 H (1.40-6.50) K/uL Fisher # (Auto) 0.95 H (0.11-0.59) K/uL Sodium 131 L (136-145) mmol/L Chloride 86 L (98-107) mmol/L Carbon Dioxide 39 H (21-32) mmol/L Creatinine 0.26 L (0.6-1.4) mg/dl BUN/Creatinine Ratio 23.1 H (10-20) Lactate 2.4 H* (0.4-2.0) mmol/L Diagnostic Findings Chest X-Ray 06/10/24 11:18 XR chest 1V portable CLINICAL HISTORY: Hypoxia, thick phelgm, PNA COMPARISON STUDY: 06/12/2021 FINDINGS: There is stable mild cardiomegaly without pulmonary vascular congestion. There is severe scoliosis. There is mild stranding opacity in the lung bases. No other consolidation or pleural effusion seen. No pneumothorax. IMPRESSION: Atelectasis versus early pneumonia in the lung bases. ACT 112: Negative or not required by law. Electronically signed by: Luis Dimas M.D. 06/10/2024 11:36 AM Code Status & VTE Plan Code Status Full code (confirmed with patient's mother over the phone) VTE Prophylaxis Plan VTE Prophylaxis will be ordered: Yes Supervising Physician Co-Signing Physician Notes I have personally seen, evaluated and examined the patient. I have also personally discussed the management of the patient with the resident physicia n/THIAGO and I agree with the exam findings documented in the history and physical examination and the documented assessment and plan unless otherwise stated below. Brief Exam: In general 38-year-old male nonverbal at baseline. Severely contracted and deformed due to his severe cerebral palsy. Accompanied by his nurse at the time of my examination. HEENT: Normocephalic/atraumatic Heart: Appears regular. Lungs: Diminished difficult lung exam he cannot cooperate with any type of deep inspiration. Abdomen: Soft appears nontender on palpation. No appreciable organomegaly abdominal bruits. Extremities: Severe contractures and deformities due to cerebral palsy of his extremities x 4. All appear to be intact. Neurologically: Unable to cooperate with any cranial nerve exam and neurologic e xam per the patient's nurse at the bedside he is at his baseline neurologic status. Assessment/plan: As discussed above. Stat CT of the chest to rule out mucous plugging and/or pulmonary embolism and/or occult pneumonia. N.p.o. for now until CTA is back. Consider pulmonology consultation pending CTA of the chest results. Vancomycin and cefepime for now. Please refer to orders for further planning. Condition critical. Prognosis guarded given his tenuous respiratory situation and cerebral palsy. PG Care Time/CCT Total # of Minutes Spent Total Time Spent with Patient: Total time spent is greater than 50% in coordination of care (as documented) at patient's floor/unit and/or counseling patient: Coding [place] [address] INT INP/OBS CARE MIN Patient Type Established Medical Decision Making High Complexity Diagnoses Pneumonia J18.9 Acute hypoxic respiratory failure J96.01 Cerebral palsy G80.9 Cerebral palsy type: unspecified type (3) Cerebral palsy Cerebral palsy type: unspecified type Qualified Code(s): G80.9 - Cerebral palsy, unspecified
[2024-06-10] MEDS ORDERED: VANCOMYCIN CONSULT ACTIVE PRN (15:04)
[2024-06-10] MEDS ORDERED: VANCOMYCIN HCL 500 MG in SODIUM CHLORIDE 0.9% 250 ML IV SCH (15:15)
[2024-06-10] MEDS: cefTRIAXone SODIUM 2,000 MG/50 ML BAG IV STA (15:18)
[2024-06-10] MEDS: OPTIRAY 320 125ml IV ONE (15:51)
--- NOTE | 2024-06-10 16:09 | CT Scan Report ---
CT angio chest PE protocol CT DOSE: 284.78 mGy.cm HISTORY: PE. TECHNIQUE: Multiple CTA images of the chest were obtained after the intravenous administration of 50 ml Optiray. Coronal and sagittal MIPS were obtained from the axial data set and were submitted for r eview. All measurements were obtained according to NASCET criteria. A dose lowering technique was ut ilized adhering to the principles of ALARA. COMPARISON STUDY: 06/12/2021 FINDINGS: There is occlusion of the left mainstem bronchus by secretions with near complete collapse of the left lung. There are secretions in the right middle and lower lobe bronchus with collapse of t he right middle and lower lobes. There is no pleural effusion or pneumothorax. No enlarged adenopathy . No pericardial effusion. No thoracic aortic dissection or aneurysm. No pulmonary embolism seen. The re is severe scoliosis. IMPRESSION: 1. No pulmonary embolism seen. 2. Airway secretions with near complete collapse of the left lung and complete collapse of the right middle and right lower lobes. 3. Otherwise as described. ACT 112: Negative or not required by law. The above report was generated using voice recognition software. It may contain grammatical, syntax o r spelling errors. Electronically signed by: Luis Dimas M.D. 06/10/2024 4:07 PM
[2024-06-10] MEDS ORDERED: VANCOMYCIN 500 MG in NSS 100mL IV ONE (16:15)
[2024-06-10] MEDS: VANCOMYCIN 500 MG in NSS 100mL IV ONE (16:42)
--- NOTE | 2024-06-10 16:58 | Pulmonary Consultation ---
Date of Consultation June 10, 2024 Assessment & Plan (1) Acute hypoxic respiratory failure: (2) Abnormal chest CT: (3) CP (cerebral palsy): (4) Scoliosis: Scoliosis type: unspecified scoliosis Spinal region: unspecified Qualified Code(s): M41.9 - Scoliosis, unspecified Plan CT chest 06/10/2024 personally reviewed: Chronic collapse of the left side of the lung Atelectasis of the right middle and lower lobe Severe thoracic scoliosis No significant mediastinal lymphadenopathy -- Acute hypoxic respiratory failure Likely secondary to mucous plugging on the right side Patient has chronic collapse of the left lung as evident from CAT scan done in 2021 Respiratory BioFire negative for everything on 06/10/2024 Procalcitonin 0.06 -- Restrictive lung disease Likely from chronic collapse of the left lung as well as severe scoliosis Plan: Given the musculoskeletal deformity, patient will be at very high risk for any invasive procedure including bronchoscopy Will start the patient on airway clearance technique with hypertonic saline nebulized, Mucomyst and Brovana on a regular basis along with CoughAssist Would recommend patient to be n.p.o. Recommend swallow eval before resuming diet on the patient Nasal MRSA has been ordered, if negative okay to discontinue vancomycin All questions and queries of the patient's parents were answered in depth Please note the above document was generated using voice recognition software. It may contain grammatical, syntax or spelling errors.Any formal questions or concerns about the content, text or information contained within the body of this dictation should be directly addressed to the provider for clarification. History of Present Illness History of Present Illness 38-year-old male presented to the hospital for productive cough and chest congestion Past medical history: Cerebral palsy, significant scoliosis thoracic as well as lumbar with restrictive lung disease, seizure Pulmonary consulted for abnormal chest CT At the time of examination patient was saturating 97-98% on 13 L OxyMask I was able to gradually go down on the patient's oxygen to 5 L currently still saturating 94-95%. No fever or chills at home Usually eats by mouth. Occasional coughing when he is eating No diarrhea. Unsure if she is having dysuria Does not travel No sick contacts that we know of History was obtained from previous chart as well as family Allergies Allergy/AdvReac Type Severity Reaction Status Date / Time ampicillin Allergy Unknown . Verified 06/06/24 13:20 clindamycin Allergy Unknown . Verified 06/06/24 13:20 gentamicin Allergy Unknown UNKNOWN Verified 06/06/24 13:20 Penicillins Allergy Unknown . Verified 06/06/24 13:20 Home Medications Medication Instructions Recorded Confirmed Type fluticasone propionate 50 2 spray intranasal DAILY #48 mL 03/19/23 06/10/24 Rx mcg/actuation nasal spray,suspension Oxygen Home 03/29/23 06/06/24 History nystatin 100,000 unit/gram topical 1 applic topical BID PRN fungal 04/30/23 06/10/24 Rx powder infections #30 grams polyethylene glycol 3350 17 17 g PO TID PRN constipation #850 07/06/23 06/10/24 Rx gram/dose oral powder (Miralax) grams sertraline 20 mg/mL oral 0 mg PO HS 10/24/23 06/10/24 History concentrate econazole nitrate 1 % topical cream 1 applic topical BID PRN rash #30 12/25/23 06/10/24 Rx grams nystatin 100,000 unit/gram topical 1 applic topical BID PRN rash #30 12/25/23 06/10/24 Rx cream grams Depakote Sprinkles 125 mg 500 mg (4 x 125 mg) PO BID 90 days 03/24/24 06/10/24 Rx capsule,delayed release #720 caps (divalproex) albuterol sulfate 2.5 mg/3 mL 2.5 mg (3 mL) inhalation Q6H PRN 04/22/24 06/10/24 Rx (0.083 %) solution for nebulization asthma #180 mL acetaminophen 160 mg/5 mL oral 160 mg PO QID PRN Pain/Fever 06/10/24 06/10/24 History suspension (Children's Tylenol) Patient History Medical History Anxiety Surgical History S/P ventricular shunt placement History of hip surgery S/P appendectomy Family History Grandmother (Maternal) Atrial fibrillation Grandfather (Paternal) Atrial fibrillation Social History Smoking Status: Never smoker Hx Alcohol Use: No Hx Substance Use: No Preferred Language: Hungarian Communication Ability: Unable Visual Impairment: No Limitations Hearing Ability: Normal Consulting Senior Practice Director Required: No Beliefs That Will Affect Care: None marital status: Single Current Living Situation: Family other: wheelchair dependence Feels Safe at Home: Yes Assistive Devices: Wheelchair Review of Systems 2 Review of Systems: Unobtainable due to mental health condition and Unobtainable due to cognitive status Physical Exam 2 Physical Exam: Constitutional: No acute distress HEENT: EOMI, PERRLA Respiratory system: Decreased air entry bilaterally, no wheeze, no rhonchi, minimal crackles bilaterally CVS: S1-S2 positive, no murmurs or gallops Abdomen: Soft, nontender, nondistended, positive bowel sounds x4 Extremities: +2 pulses bilaterally radialis/ dorsalis pedis, no cyanosis, minimal bilateral pitting ankle edema Neuro: Awake and alert, nonverbal Psych: Unable to assess G/U: No Bazzi Musculoskeletal: Severe scoliosis Skin: no rashes, warm and dry Lymphatic: no cervical or axillary lymphadenopathy Results & Data Results & Data Vital Signs (Past 12 Hours) Vital Signs Pulse Pulse Resp BP BP Pulse Ox O2 Del Method 06/10/24 16:30 69 20 96 06/10/24 16:30 96/73 L 06/10/24 16:12 73 16 95 06/10/24 15:30 93 06/10/24 15:21 77 06/10/24 15:15 70 23 92 06/10/24 15:00 112/71 06/10/24 14:51 73 26 H 91 06/10/24 14:30 100/69 06/10/24 14:30 100/69 06/10/24 14:27 65 19 95 06/10/24 14:00 62 17 96 06/10/24 13:30 63 22 94 06/10/24 13:09 72 21 94 06/10/24 13:06 110/68 06/10/24 13:06 110/68 06/10/24 12:54 67 19 92 06/10/24 12:31 128/80 06/10/24 12:31 128/80 06/10/24 12:31 128/80 06/10/24 12:31 128/80 06/10/24 12:30 68 21 90 06/10/24 12:22 71 16 135/70 90 Room Air 06/10/24 12:09 72 24 90 06/10/24 12:01 135/70 06/10/24 11:36 73 23 119/89 93 Oxymask 06/10/24 11:33 70 26 H 93 06/10/24 11:30 119/89 06/10/24 11:30 119/89 06/10/24 11:27 70 25 H 90 06/10/24 11:21 80 34 H 97 06/10/24 11:18 104 H 06/10/24 11:13 175/135 H 06/10/24 11:02 108 H 20 130/81 70 L Room Air O2 Flow Rate 06/10/24 16:30 06/10/24 16:30 06/10/24 16:12 06/10/24 15:30 06/10/24 15:21 06/10/24 15:15 06/10/24 15:00 06/10/24 14:51 06/10/24 14:30 06/10/24 14:30 06/10/24 14:27 06/10/24 14:00 06/10/24 13:30 06/10/24 13:09 06/10/24 13:06 06/10/24 13:06 06/10/24 12:54 06/10/24 12:31 06/10/24 12:31 06/10/24 12:31 06/10/24 12:31 06/10/24 12:30 06/10/24 12:22 06/10/24 12:09 06/10/24 12:01 06/10/24 11:36 9 06/10/24 11:33 06/10/24 11:30 06/10/24 11:30 06/10/24 11:27 06/10/24 11:21 06/10/24 11:18 06/10/24 11:13 06/10/24 11:02 Laboratory Results 06/10/24 11:24 06/10/24 11:24 PG Care Time/CCT Total # of Minutes Spent Total Time Spent with Patient: Total time spent is greater than 50% in coordination of care (as documented) at patient's floor/unit and/or counseling patient: Coding Level of Care Code 69189 INT INP/OBS CARE MIN Diagnoses Acute hypoxic respiratory failure J96.[address] R93.89 CP (cerebral palsy) G80.9 Scoliosis M41.9 Scoliosis type: unspecified scoliosis Spinal region: unspecified
[2024-06-10] MEDS: SODIUM CHLORIDE 0.9% 1,000 ML IV SCH (17:47)
[2024-06-10] MEDS ORDERED: SODIUM CHLOR 7% 4 ML NEB NEB SCH (19:00)
[2024-06-10] MEDS: FORMOTEROL 20 MCG/2 ML VIAL INH SCH (19:18)
[2024-06-10] MEDS: SODIUM CHLOR 7% 4 ML NEB NEB SCH (19:21)
[2024-06-10] MEDS: ACETYLCYSTEINE 20% INHAL SOLN 4ML ***DISPENSED BY RESP. INH SCH (19:21)
[2024-06-10] MEDS: CEFEPIME 2000MG 2,000 MG/20 ML SYR IV SCH (19:59)
[2024-06-10] MEDS: VANCOMYCIN 500 MG in NSS 100mL IV SCH (20:00)
[2024-06-10] MEDS: VALPROATE SOD 250 MG in DEXTROSE 5% 50 ML IV SCH (20:57)
[2024-06-11 06:18] LABS: Basophils # (auto) 0.01 K/uL (0.00-0.20); Basophils % (auto) 0.1 %; Eosinophils # (auto) 0.02 K/uL (0.00-0.50); Eosinophils % (auto) 0.2 %; Hematocrit (blood only) 37.5 % (42.0-52.0); Hemoglobin 12.2 g/dl (14.0-18.0); Immature Granulocytes # (auto) 0.02 K/uL (0.01-0.20); Immature Granulocytes % (auto) 0.2 %; Lymphocytes # (auto) 1.37 K/uL (1.20-3.40); Lymphocytes % (auto) 11.7 %; Mean Corpuscular Hgb Conc 32.5 g/dL (32.0-36.0); Mean Corpuscular Volume 92.1 fL (80.0-100.0); Mean Platelet Volume 10.8 fL (9.4-12.4); Monocytes # (auto) 0.73 K/uL (0.11-0.59); Monocytes % (auto) 6.2 %; Neutrophils # (auto) 9.54 K/uL (1.40-6.50); Neutrophils % (auto) 81.6 %; Platelet Count 83 K/uL (130-400); RDW Coefficient of Variation 14.7 % (11.5-14.5); RDW Standard Deviation 49.6 fL (36.4-46.3); Red Blood Count 4.07 M/uL (4.70-6.10); White Blood Count 11.69 K/ul (4.8-10.8)
[2024-06-11 06:29] LABS: BUN Creatinine Ratio 26.9 (10-20); Calcium 9.2 mg/dl (8.6-10.3); Creatinine Clr Calc Pharmacy 122.1 ml/min; Magnesium 1.7 mg/dl (1.7-2.4); Potassium 4.4 mmol/L (3.5-5.1); Vancomycin Random 26.5 mcg/ml (10-20)
--- NOTE | 2024-06-11 08:06 | XRay Report ---
EXAM: XR chest 1V portable CLINICAL HISTORY: F/u. TECHNIQUE: X-ray images of the chest were obtained in AP projections. COMPARISON: Compared to the previous study done on 06/11/2021. FINDINGS: The stable appearance of NON DESTRUCTIVE TESTING SUPERVISOR shunt compared to prior study. Pulmonary Parenchyma: Marked limitation of assessment due to advanced scoliosis and chest deformity. Total opacification of the left hemithorax with abrupt opacification and distal dilatation of the air column of the left main bronchus. Right lower and middle lung zones opacity is seen with obliterated right costophrenic angle. Heart and Mediastinum: Heart size and shape can't be properly assessed. 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 IMPRESSION: The progressive course in the current study shows: 1. Total opacification of the left hemithorax with abrupt opacification of the air column of the left main bronchus. 2. Right lower and middle lung zones opacity with obliterated right costophrenic angle. 3. 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 Electronically signed by Thierry Wilder 06-11-2024 08:06 AM
[2024-06-11] MEDS: FLUTICASONE PROPIONATE NA SPR 16 GM BTL SCH (08:11)
--- NOTE | 2024-06-11 08:35 | Hospitalist Progress Note ---
Date of Service June 11, 2024 Assessment & Plan (1) Pneumonia: (2) Acute hypoxic respiratory failure: (3) Cerebral palsy: Plan Srinivasan is a 38-year-old male with PMH of cerebral palsy, seizure, aspiration pneumonia, and chronic restrictive lung disease. He presented on 06/10 for congestion and productive cough.Found to have chronic left sided lung collapse and aspiration PNA on right, with significant hypoxic respiratory failure #Aspiration Pneumonia/Chronic left lung collapse/Severe scoliosis/Acute on chronic respiratory failure with hypoxia-P/w worsening cough, thick white sputum production, profound hypoxemia with POx 68% on RA on arrival. On 1.5LNC O2 at home. 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 Biofire resp panel neg. Started on cough assist, nebs, Mucomyst, Cefepime, Vanco. With worsening hypoxia and mucus plugging AM on 06/11 now requiring 15L O2. High risk for need for intubation MRSA swab neg--dc Vanco Blood cultures NGTD , Sputum culture ordered, not yet collected Continue Cefepime Elevate HOB, aspiration cautions COntinue Hypertonic 7% saline neb BID, Mucomyst and formoterol nebs, cough assist Continuous pulse oximetry Appreciate pulmonary consult-too high risk for bronchoscopy at this time Keep NPO #Cerebral palsy/Seizure disorder/Myoclonic jerks/Functional quadriplegia-no seizures in a long time as per Dad. Pt w/cerebral palsy, wheelchair-bound, and requires total care assist, significant muscular atrophy of upper/lower extremities; non-verbal, with severe scoliosis -Continue Depakote twice daily -Supportive care-Total ADL assist, I&O, off-loading pressure points #Depression-hold po sertraline while NPO #Severe protein-calorie malnutrition-BMI 14, frail appearing, with risk factors of Cerebral palsy, scoliosis, chronic aspiration - RD consult when appropriate -NPO for now due to aspiration PNA and severe hypoxemia DVT Proph- Lovenox 30 mg SQ q24h Dispo-continued stay PCU, prognosis guarded, discussed care with Dad at bedside. He will d/w his but leaning towards no intubation if respiratory failure worsens Admission and Anticipated Discharge Date Admission Date: June 10, 2024 Subjective Saw patient more urgently this AM after RN reported his POx was 85% on 15LNC after having deep suction and cough assist with RT. By the time I saw him, he had been repositioned and POx was 95% on 15L Oxymask. Dad at bedside reports pt seems like more distress than usual. Tele with NSR normal rates Physical Exam Constitutional: + ill appearing, + thin, + behavioral li mitations (nonverbal) and + underweight Respiratory: + tachypneic (mild) Auscultation: + d iminished lung sounds (left side,right base) and + rhonchi (right upper ling field); no crackles and no wheezes Cardiovascular: Rate/Rhythm: regular rate and regular rhythm Heart Sounds: no murmur Gastrointestinal (Abdomen): Inspection/Auscultation: normal bowel sounds; abdomen not distended Percussion/Palpation: abdomen soft; abdomen nontender Neurologic: contractures in all 4 extremities, severe,nonverbal Results & Data Results & Data Vital Signs (Past 12 Hours) Vital Signs Temp Pulse Pulse Resp BP Pulse Ox O2 Del Method 06/11/24 08:00 36.5 C 119 H 22 110/69 96 Oxymask 06/11/24 07:46 36.4 C L 108 H 26 H 120/69 89 L Oxymask 06/11/24 05:32 94 H 25 H 88 L Oxymask 06/11/24 05:00 34.4 C L 06/11/24 03:29 81 20 123/84 96 Oxymask 06/10/24 23:26 36.0 C L 77 22 120/79 93 Oxymask 06/10/24 22:00 Oxymask 06/10/24 21:40 71 O2 Flow Rate 06/11/24 08:00 15 06/11/24 07:46 15 06/11/24 05:32 6 06/11/24 05:00 06/11/24 03:29 5.0 06/10/24 23:26 5 06/10/24 22:00 5 06/10/24 21:40 Laboratory Results CBC, BMP reviewed Diagnostic Findings CXR reviewed PG Care Time/CCT Total # of Minutes Spent Total Time Spent with Patient: Total time spent is greater than 50% in coordination of care (as documented) at patient's floor/unit and/or counseling patient: Coding Level of Care Code 31514 SUB INP/OBS CARE 50MIN Diagnoses Pneumonia J18.9 Acute hypoxic respiratory failure J96.01 Cerebral palsy G80.9
--- NOTE | 2024-06-11 08:44 | Pharmacy Report ---
Pharmacy PK ABX Note - Date of Service June 11, 2024 - Assessment and Plan Assessment 38 year old M receiving vancomycin and cefepime for treatment of CAP. Awaiting MRSA nasal swab Day # 1 of antimicrobial therapy. Random level 06/11 with AM labs came back as 26.5, but may disregard since drawn soon after vanco was given. Plan Vancomycin * Loading dose: 500 mg IV x 1 * Maintenance dose: 500 mg IV every 8 hours * Regimen is predicted to achieve target AUC/COURTNEY of 400-600 mg/L.hr * Random level ordered for: 06/12/24 @1100, order entered to not hang new bag before lab drawn Pharmacy will continue to follow and will adjust dose/frequency as necessary. Thank you. Pharmacy has transitioned to AUC monitoring for vancomycin. AUC/COURTNEY is the preferred PK/PD target and is associated with decreased risk of nephrotoxicity compared to traditional trough targets.
--- NOTE | 2024-06-11 12:06 | Pulmonology Progress Note ---
Date of Service June 11, 2024 Assessment & Plan (1) Acute hypoxic respiratory failure: (2) Abnormal chest CT: (3) CP (cerebral palsy): (4) Scoliosis: Scoliosis type: unspecified scoliosis Spinal region: unspecified Qualified Code(s): M41.9 - Scoliosis, unspecified Plan CT chest 06/10/2024 personally reviewed: Chronic collapse of the left side of the lung Atelectasis of the right middle and lower lobe Severe thoracic scoliosis No significant mediastinal lymphadenopathy -- Acute hypoxic respiratory failure Likely secondary to mucous plugging on the right side Patient has chronic collapse of the left lung as evident from CAT scan done in 2021 Respiratory BioFire negative for everything on 06/10/2024 Procalcitonin 0.06 Nasal MRSA negative -- Restrictive lung disease Likely from chronic collapse of the left lung as well as severe scoliosis Admission and Anticipated Discharge Date Admission Date: June 10, 2024 Supervising Physician Co-Signing Physician Notes I saw and evaluated the patient with Melchor Ellison PA-C, and agree with findings and plan as documented in the note. Patient seen and examined at bedside. No acute distress Early in the morning patient oxygen requirement again went up to 15 L. When I was in the room he was saturating 91-92% on 5 L oxime mask. I personally spoke with RT who were able to do CoughAssist again in the afternoon and were able to bring chunk of phlegm out. Patient's father was also in the room. Constitutional: No acute distress HEENT: EOMI, PERRLA Respiratory system: Decreased air entry bilaterally, no wheeze, no rhonchi, minimal crackles bilaterally CVS: S1-S2 positive, no murmurs or gallops Abdomen: Soft, nontender, nondistended, positive bowel sounds x4 Extremities: +2 pulses bilaterally radialis/ dorsalis pedis, no cyanosis, minimal bilateral pitting ankle edema Neuro: Awake and alert, nonverbal Psych: Unable to assess G/U: No Bazzi Musculoskeletal: Severe scoliosis Plan: Continue with airway clearance technique with hypertonic saline nebulized, Mucomyst and Brovana on a regular basis along with CoughAssist Given the musculoskeletal deformity, patient will be at very high risk for any invasive procedure including bronchoscopy. Would recommend patient to be n.p.o. Nasal MRSA NEGATIVE, will discontinue vancomycin Please note the above document was generated using voice recognition software. It may contain grammatical, syntax or spelling errors.Any formal questions or concerns about the content, text or information contained within the body of this dictation should be directly addressed to the provider for clarification. Subjective Patient seen and evaluated by myself. Patient's father is at bedside. He had desaturated after suctioning last night. Remains on 15 L oxy mask at this time. Father reports increasing sputum production today. He has seemed restless at times. Review of Systems 2 Review of Systems: Unable to obtain. Physical Exam 2 Physical Exam: VITAL SIGNS Vital signs and nursing notes were reviewed. GENERAL 38-year-old male appearing his stated age. LUNGS Chest wall evaluation demonstrates a contorted chest wall anatomy. Coarse breath sounds appreciated throughout all lung marcum. CARDIAC RRR with S1/S2. No murmur, rubs, or gallops appreciated. Skin: no rashes, warm and dry Lymphatic: no cervical or axillary lymphadenopathy Results & Data Results & Data Vital Signs (Past 12 Hours) Vital Signs Temp Pulse Pulse Resp BP Pulse Ox O2 Del Method 06/11/24 09:00 116 H 06/11/24 08:00 36.5 C 119 H 22 110/69 96 Oxymask 06/11/24 07:46 36.4 C L 108 H 26 H 120/69 89 L Oxymask 06/11/24 05:32 94 H 25 H 88 L Oxymask 06/11/24 05:00 34.4 C L 06/11/24 03:29 81 20 123/84 96 Oxymask O2 Flow Rate 06/11/24 09:00 06/11/24 08:00 15 06/11/24 07:46 15 06/11/24 05:32 6 06/11/24 05:00 06/11/24 03:29 5.0 Laboratory Results 06/11/24 05:50 06/11/24 05:50 PG Care Time/CCT Total # of Minutes Spent Total Time Spent with Patient: Total time spent is greater than 50% in coordination of care (as documented) at patient's floor/unit and/or counseling patient: Coding Level of Care Code 67437 SUB INP/OBS CARE 3/50MIN Diagnoses Acute hypoxic respiratory failure J96.[address] R93.89 CP (cerebral palsy) G80.9 Scoliosis M41.9 Scoliosis type: unspecified scoliosis Spinal region: unspecified
[2024-06-11] MEDS: ACETAMINOPHEN IV PRN (12:39)
[2024-06-11] MEDS: ALBUTEROL 0.083% NEBU SOLN 3 ML VIAL INH PRN (17:50)
[2024-06-12] MEDS: SERTRALINE SCH (07:50)
[2024-06-12 08:12] LABS: Creatinine Clr Calc Pharmacy 96.2 ml/min
--- NOTE | 2024-06-12 08:32 | Anesthesiology Progress Note ---
Date of Service June 12, 2024 Assessment & Plan Admission and Anticipated Discharge Date Admission Date: June 10, 2024 Subjective 0825-Anesthesia paged stat overhead to [facility] for urgent intubation. Patient assisted with ambu 100%fio2. Spontaneous ventilation maintained. GS# 3 used to view larynx. Gr 1 view with glidescope. Unable to pass ETT with patient maintaining spontaneous ventilation. Eschmann stylette used through ETT to pass ETT atraumatically through vocal cords to 19CM. Placement confirmed via CO2 and flexible bronchospy by associate doctor. ETT secured. Physical Exam Vital Signs: Last Vital Signs Temp 36.8 C 06/12/24 08:10 Pulse 132 H 06/12/24 08:10 Resp 20 06/12/24 08:10 BP 114/66 06/12/24 08:10 Pulse Ox 91 06/12/24 08:10 O2 Del Method Oxymask, Free Crispin w/Blow-by 06/12/24 08:10 O2 Flow Rate 9 06/12/24 08:10 Results & Data ([facility]) Medications Administered Acetylcysteine (Acetylcysteine 20% Inhal Soln 4ml Dispensed By Resp.) 5 ml INH Q12H [facility] Stop: 07/10/24 16:59 Last Admin: 06/11/24 17:50 Dose: 5 ml Documented By: Admin: 06/11/24 05:25 Dose: 5 ml Documented By: Admin: 06/10/24 19:21 Dose: 5 ml Documented By: AYDEN Albuterol (Albuterol 0.083% Nebu Soln 3 Ml Vial) 2.5 mg INH Q6H PRN; Protocol PRN Reason: asthma Stop: 07/10/24 18:37 Last Admin: 06/11/24 17:50 Dose: 2.5 mg Documented By: MICHAEL Fluticasone Propionate (Fluticasone Propionate Na Spr 16 Gm Btl) 2 sprays NA DAILY [facility] Stop: 07/11/24 08:59 Last Admin: 06/12/24 07:51 Dose: 2 sprays Documented By: Admin: 06/11/24 08:11 Dose: 2 sprays Documented By: SS Formoterol Fumarate (Formoterol 20 Mcg/2 Ml Vial) 20 mcg INH BIDR [facility] Stop: 07/10/24 18:59 Last Admin: 02/27/25 06:37 Dose: 20 mcg Documented By: Admin: 06/11/24 18:20 Dose: 20 mcg Documented By: Admin: 06/11/24 05:24 Dose: 20 mcg Documented By: Admin: 06/10/24 19:18 Dose: 20 mcg Documented By: AYDEN Cefepime HCl (Maxipime 2000mg) 2,000 mg in 20 mls @ 5 mls/min IV Q12H CHERIE; Prot ocol Stop: 06/15/24 18:29 Last Admin: 06/12/24 06:29 Dose: 5 mls/min Documented By: Admin: 06/11/24 18:22 Dose: 5 mls/min Documented By: Admin: 06/11/24 06:41 Dose: 5 mls/min Documented By: Admin: 06/10/24 19:59 Dose: 5 mls/min Documented By: ZENOBIA Valproic Acid 250 mg/ Dextrose 52.5 mls @ 55 mls/hr IV Q6H CHERIE Stop: 07/10/24 20:59 Last Admin: 06/12/24 07:51 Dose: 55 mls/hr Documented By: Infusion: 06/12/24 04:26 Dose: Infused Documented By: Admin: 06/12/24 03:11 Dose: 55 mls/hr Documented By: Infusion: 06/11/24 21:43 Dose: Infused Documented By: Admin: 06/11/24 20:40 Dose: 55 mls/hr Documented By: Infusion: 06/11/24 17:16 Dose: Infused Documented By: Admin: 06/11/24 16:18 Dose: 55 mls/hr Documented By: Infusion: 06/11/24 09:07 Dose: Infused Documented By: Admin: 06/11/24 08:09 Dose: 55 mls/hr Documented By: Infusion: 06/11/24 03:51 Dose: Infused Documented By: Admin: 06/11/24 02:39 Dose: 55 mls/hr Documented By: Infusion: 06/10/24 22:01 Dose: Infused Documented By: Admin: 06/10/24 20:57 Dose: 55 mls/hr Documented By: ZENOBIA Acetaminophen (Ofirmev) 325 mg in 32.5 mls @ 400 mls/hr IV Q6H PRN PRN Reason: Pain or Fever Stop: 06/14/24 08:47 Last Infusion: 06/11/24 22:06 Dose: Infused Documented By: Admin: 06/11/24 21:43 Dose: 400 mls/hr Documented By: Infusion: 06/11/24 12:45 Dose: Infused Documented By: Admin: 06/11/24 12:39 Dose: 400 mls/hr Documented By: SS Sertraline Solution (- Patient's Own Med) 0.5 each N/A DAILY CHERIE Stop: 07/12/24 08:59 Last Admin: 06/12/24 07:50 Dose: 10 mg Documented By: HEATHER Sodium Chloride (Sodium Chlor 7% 4 Ml Neb) 4 ml NEB BIDR CHERIE Stop: 07/10/24 18:59 Last Admin: 06/12/24 06:37 Dose: 4 ml Documented By: Admin: 06/11/24 17:49 Dose: 4 ml Documented By: Admin: 06/11/24 05:25 Dose: 4 ml Documented By: Admin: 06/10/24 19:21 Dose: 4 ml Documented By: AYDEN
--- NOTE | 2024-06-12 08:40 | Hospitalist Progress Note ---
Date of Service June 12, 2024 Assessment & Plan (1) Pneumonia: (2) Acute hypoxic respiratory failure: (3) Cerebral palsy: Plan Srinivasan is a 38-year-old male with PMH of cerebral palsy, seizure, aspiration pneumonia, and chronic restrictive lung disease. He presented on 06/10 for congestion and productive cough.Found to have chronic left sided lung collapse and aspiration PNA on right, with significant hypoxic respiratory failure. He was admitted and had worsening respiratory failure on 06/12 requiring intubation and bronchoscopy to clear out secretions. He was then quickly extubated to BiPAP at parents' request for comfort and decision made not to reintubate. #Aspiration Pneumonia/Chronic left lung collapse/Severe scoliosis/Acute on chronic respiratory failure with hypoxia-P/w worsening cough, thick white sputum production, profound hypoxemia with POx 68% on RA on arrival. On 1.5LNC O2 at home. 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 Biofire resp panel neg. Started on cough assist, nebs, Mucomyst, Cefepime, Vanco. With worsening hypoxia and mucus plugging AM on 06/11 requiring 15L O2. On AM of 06/12, he had acute worsening of respiratory status with POx 70s, was intubated, had bronchoscopy to clear secretions, then extubated to BiPAP MRSA swab neg. Blood cultures NGTD , BAL lavage cxs pending -continue BiPAP and wean off as tolerated -Continue Cefepime -Elevate HOB, aspiration cautions -Continue Hypertonic 7% saline neb BID, Mucomyst and formoterol nebs, cough assist -Appreciate pulmonary/ICU management -keep NPO and start maintenance IVFs #Cerebral palsy/Seizure disorder/Myoclonic jerks/Functional quadriplegia-no seizures in a long time as per Dad. Pt w/cerebral palsy, wheelchair-bound, and requires total care assist, significant muscular atrophy of upper/lower extremities; non-verbal, with severe scoliosis -Continue Depakote IV twice daily while NPO -Supportive care-Total ADL assist, I&O, off-loading pressure points #Depression-hold po sertraline while NPO #Severe protein-calorie malnutrition-BMI 14, frail appearing, with risk factors of Cerebral palsy, scoliosis, chronic aspiration - RD consult when appropriate -if not able to safely take po over the next few days, would discuss tube feeds -continue NPO for now due to aspiration PNA and severe hypoxemia #Thrombocytopenia-likely due to acute infection, mild at this time at 99 -follow CBC DVT Proph- Lovenox 30 mg SQ q24h Dispo-transferred to ICU, prognosis very guarded, discussed care with Dad at bedside. ICU discussed with parents and he is now a DNR/DNI Admission and Anticipated Discharge Date Admission Date: June 10, 2024 Subjective Pt was restless overnight and his mother thought it was because he missed a dose of Zoloft. Overnight resident placed order to give po liquid Zoloft. This AM, RN reports she gave pt the liquid Zoloft and shortly afterwards, he had difficulty breathing and POx dropped to the 70s. Code purple called and I came urgently to the bedside-PULM/Video Presentation Operator and multiple staff members as well as Anesthesia. The pt was intubated. He had a good BP, sinus tach on tele and never lost his pulse. He did briefly have a junctional rhythm on review of tele monitor after the code. He was transferred to ICU and had a bronchoscopy to clear out a lot of secretions causing airway collapse. Physical Exam Constitutional: + ill appearing, + thin, + behavioral li mitations (nonverbal) and + underweight Respiratory: + tachypneic (severe) Cardiovascular: Heart Sounds: no murmur Results & Data Results & Data Vital Signs (Past 12 Hours) Vital Signs Temp Pulse Pulse Resp BP Pulse Ox O2 Del Method 06/12/24 08:10 36.8 C 132 H 20 114/66 91 Oxymask, Free Flow/Blow-by 06/12/24 03:58 36.1 C L 113 H 18 110/63 94 Oxymask 06/11/24 22:52 36.1 C L 99 H 20 120/45 L 92 Oxymask 06/11/24 22:20 90 O2 Flow Rate 06/12/24 08:10 9 06/12/24 03:58 9.0 06/11/24 22:52 9.0 06/11/24 22:20 Laboratory Results CBC, BMP, LFTs, magnesium reviewed Diagnostic Findings CXR image reviewed PG Care Time/CCT Total # of Minutes Spent Total Time Spent with Patient: Total time spent is greater than 50% in coordination of care (as documented) at patient's floor/unit and/or counseling patient: Coding Level of Care Code 69519 SUB INP/OBS CARE 3/50MIN Diagnoses Pneumonia J18.9 Acute hypoxic respiratory failure J96.01 Cerebral palsy G80.9
[2024-06-12] MEDS ORDERED: STAT IV Infusion **Titration per Protocol STA ×2 (08:43→21:55)
[2024-06-12] MEDS ORDERED: fentaNYL BOLUS from BAG IV PRN (08:43)
[2024-06-12] MEDS: fentaNYL citrate 2,500 MCG/250 ML BAG IV SCH (08:48)
[2024-06-12] MEDS: PHENYLEPHRINE/NSS 25 MG/250 ML BAG IV SCH (08:48)
[2024-06-12] MEDS: fentaNYL citrate 2,500 MCG/250 ML BAG IV ONE (08:49)
[2024-06-12] MEDS: PHENYLEPHRINE HCL 25 MG/250 ML NSS IV ONE (08:49)
--- NOTE | 2024-06-12 09:16 | Critical Care Progress Note ---
Date of Service June 12, 2024 Assessment & Plan (1) Acute hypoxic respiratory failure: (2) Abnormal chest CT: (3) CP (cerebral palsy): (4) Scoliosis: (5) Collapse of left lung: Plan CT chest 06/10/2024 personally reviewed: Chronic collapse of the left side of the lung Atelectasis of the right middle and lower lobe Severe thoracic scoliosis No significant mediastinal lymphadenopathy -- Acute hypoxic respiratory failure Likely secondary to mucous plugging on the right side Patient has chronic collapse of the left lung as evident from CAT scan done in 2021 Respiratory BioFire negative for everything on 06/10/2024 Procalcitonin 0.06 Nasal MRSA negative -- Restrictive lung disease Likely from chronic collapse of the left lung as well as severe scoliosis --Prophylaxis VTE: None GI: None Lines: Peripheral Diet: N.p.o. Plan: Strict ins and outs Patient has been intubated, bronchoscopy has been performed and mucous plugging was taken care of from both lungs His blood pressure was trending down and was started on phenylephrine likely from sedation that he got for intubation as well as bronchoscopy FiO2 was decreased to 40% and he was still saturating 95 to 96% with PEEP of 5 I did discuss in detail with the parents the current condition in the presence of their cone sewer. In the best interest of the patient it was decided that we will extubate him and put him on BiPAP as the underlying etiology of him being hypoxic and core propyl which was mucous plugging has been resolved Continuing intubation might be more damaging rather than helping him. Patient also had runs of tachycardia into the 170s which seemed sinus, SVT could not be ruled out. By the time we did EKG he was back into the 90s. There would be no reintubating the patient if need be in future All questions and queries of the patient's parents as well as cone sewer were all answered in depth. I have personally spent 62 minutes of critical care time in the direct management of this patient. This is a life/limb threatening event. This includes time spent evaluating patient, direct bedside care, chart review, placing orders, interpretation of diagnostic studies, discussion with consultants, patient, and family members, as well as other required patient management activities. This time is exclusive of all separately billable procedures, and teaching time and separate from and in addition to any other critical care service time. Please note the above document was generated using voice recognition software. It may contain grammatical, syntax or spelling errors. Admission and Anticipated Discharge Date Admission Date: June 10, 2024 Subjective Patient seen and examined Code evangelista was called earlier in the morning today for hypoxic event after patient was given some oral medication He was saturating 70% on bag mask ventilation with a poor waveform Plan was made to intubate. I had flexible [facility] ready for fiberoptic intubation Anesthesia was also at bedside who wanted to try glide a scope. They were not able to pass the ET tube so bougie was used. Family was at bedside Review of Systems 2 Review of Systems: Unobtainable due to mental health condition Physical Exam 2 Physical Exam: Constitutional: In respiratory distress HEENT: PERRLA Respiratory system: Decreased air entry bilaterally, more decreased on the left, no wheeze, no rhonchi, minimal crackles bilaterally CVS: S1-S2 positive, tachycardia Abdomen: Soft, nontender, nondistended, positive bowel sounds x4 Extremities: +2 pulses bilaterally radialis/ dorsalis pedis, no cyanosis, m inimal bilateral pitting ankle edema Neuro: Awake and alert, nonverbal Psych: Unable to assess G/U: No Bazzi Musculoskeletal: Severe scoliosis Skin: no rashes, warm and dry Lymphatic: no cervical or axillary lymphadenopathy Results & Data Results & Data Vital Signs (Past 12 Hours) Vital Signs Temp Pulse Pulse Resp BP Pulse Ox O2 Del Method 06/12/24 08:10 36.8 C 132 H 20 114/66 91 Oxymask, Free Flow/Blow-by 06/12/24 03:58 36.1 C L 113 H 18 110/63 94 Oxymask 06/11/24 22:52 36.1 C L 99 H 20 120/45 L 92 Oxymask 06/11/24 22:20 90 O2 Flow Rate 06/12/24 08:10 9 06/12/24 03:58 9.0 06/11/24 22:52 9.0 06/11/24 22:20 Laboratory Results 06/12/24 07:22 Coding Level of Care Code 68716 CRITICAL CARE 1ST 30-74M Diagnoses Acute hypoxic respiratory failure J96.[address] R93.89 CP (cerebral palsy) G80.9 Scoliosis M41.9 Scoliosis type: unspecified scoliosis Spinal region: unspecified Collapse of left lung J98.11 (4) Scoliosis Scoliosis type: unspecified scoliosis Spinal region: unspecified Qualified Code(s): M41.9 - Scoliosis, unspecified
[2024-06-12] MEDS: HYDROCORTISONE SOD 100 MG in SYRINGE 0 ML IV STA (09:17)
[2024-06-12] MEDS: PLASMA-LYTE A 250 ML IV ONE (09:18)
--- NOTE | 2024-06-12 09:18 | Procedure Note ---
Procedure Note: Bronchoscopy Procedure PREOPERATIVE DIAGNOSIS: Acute hypoxic respiratory failure with mucous plugging POSTOPERATIVE DIAGNOSIS: Mucous plugging of bilateral lung PROCEDURE PERFORMED: Flexible fiberoptic bronchoscopy with bronchoalveolar lavage and mucous. COMPLICATIONS: None. INDICATION: Hypoxia PROCEDURE: After obtaining an informed verbal consent from the patient, the patient was brought to the ICU. The patient had appropriate oxygen, blood pressure, heart rate, and respiratory rate monitoring applied and monitored continuously throughout the procedure. Patient was already intubated and FiO2 was increased to 100% and PEEP at 5. Patient was given total 50 mcg of fentanyl during the procedure The trachea appeared normal. The ET tube was right at the kevin was withdrawn by one and half centimeter. The bronchoscope was then advanced through the kevin, which was sharp. Significant grayish thin secretions were appreciated bilaterally in the left main as well as right main. These were gradually suctioned out After suctioning the scope was then advanced into the right main stem and each segment, subsegement in the right upper lobe, right middle lobe and right lower lobe were visualized. There were no other findings including evidence of mass, anatomic distortions, or hemorrhage. The bronchoscope was subsequently withdrawn and advanced into the left mainstem. The left lower lung anatomy seemed to be torturous, again, each segment and subsegment was well visualized. No specific masses or other lesions were identified throughout the tracheobronchial tree on the left. There seems to be atrophy of the left upper and left lower lobe mucosa The bronchoscope was then wedged in the right middle lobe and bronchoalveolar lavage samples were obtained. 60 ml of saline was instilled and 40 ml of fluid was aspirated back.The bronchoscope was withdrawn and the area was suctioned clear. The bronchoscope was then withdrawn to the mainstem. The area was suctioned clear. The bronchoscope was then withdrawn. The patient tolerated the procedure well without evidence of desaturation or complications. Bronchoalveolar lavage samples were sent for cell count, Gram stain and bacterial culture, AFB culture and smear, fungal culture and smear and cytology. Recommendations: Follow-up micro and cytology Follow-up chest x-ray Please note the above document was generated using voice recognition software. It may contain grammatical, syntax or spelling errors.Any formal questions or concerns about the content, text or information contained within the body of this dictation should be directly addressed to the provider for clarification. [facility] [place] Codes (Charges) Pulmonary/Thoracic Procedure 1: Pulmonary and Thoracic: 89019 Dx bronchoscopy/BAL Procedure 2: Pulmonary and Thoracic: 34126 Bronchoscopy, clear airways
--- NOTE | 2024-06-12 09:24 | XRay Report ---
XR chest 1V portable CLINICAL HISTORY: s/p tube, bronch COMPARISON STUDY: 06/11/2024 FINDINGS: Endotracheal tube tip is between the thoracic inlet and the kevin. There is residual opaci ty at the left lung base, but otherwise the lungs appear aerated, improved. No pneumothorax seen. Sta ble severe scoliosis. IMPRESSION: Residual opacity at the left lung base. Otherwise the lungs appear aerated, improved. ACT 112: Negative or not required by law. Electronically signed by: Luis Dimas M.D. 06/12/2024 9:23 AM
[2024-06-12 09:31] LABS: Basophils # (auto) 0.04 K/uL (0.00-0.20); Basophils % (auto) 0.2 %; Eosinophils # (auto) 0.01 K/uL (0.00-0.50); Eosinophils % (auto) 0.1 %; Hematocrit (blood only) 34.7 % (42.0-52.0); Hemoglobin 11.4 g/dl (14.0-18.0); Immature Granulocytes # (auto) 0.05 K/uL (0.01-0.20); Immature Granulocytes % (auto) 0.3 %; Lymphocytes # (auto) 0.76 K/uL (1.20-3.40); Mean Corpuscular Hgb Conc 32.9 g/dL (32.0-36.0); Mean Corpuscular Volume 91.3 fL (80.0-100.0); Mean Platelet Volume 11.4 fL (9.4-12.4); Monocytes # (auto) 1.18 K/uL (0.11-0.59); Monocytes % (auto) 6.2 %; Neutrophils # (auto) 16.85 K/uL (1.40-6.50); Neutrophils % (auto) 89.2 %; Nucleated RBC # (auto) 0.02 K/uL (0.00-0.12); Nucleated RBC % (auto) 0.1 %; Platelet Count 99 K/uL (130-400); RDW Coefficient of Variation 14.9 % (11.5-14.5); RDW Standard Deviation 50.2 fL (36.4-46.3); White Blood Count 18.89 K/ul (4.8-10.8)
[2024-06-12 09:34] LABS: BUN Creatinine Ratio 33.3 (10-20); Calcium 9.5 mg/dl (8.6-10.3); Magnesium 1.7 mg/dl (1.7-2.4); Potassium 4.2 mmol/L (3.5-5.1)
[2024-06-12] MEDS ORDERED: VANCOMYCIN LEVEL ONE (11:00)
[2024-06-12] MEDS: MAGNESIUM SULFATE / D5W 1 GM/100 ML BAG IV SCH (11:26)
[2024-06-12] MEDS: D5W AND NSS 1,000 ML IV SCH (11:26)
[2024-06-12] MEDS: metroNIDAZOLE 500 MG/100 ML BAG IV SCH (11:38)
[2024-06-12 12:37] LABS: Fluid Mono/Macrophage 21 %; Lymphocyte Body Fluid Man 4 %; Neutrophil Body Fluid Man 75 %
--- NOTE | 2024-06-12 22:03 | Electrocardiogram Report ---
Test Reason : Blood Pressure : */* mmHG Vent. Rate : 94 BPM Atrial Rate : 94 BPM P-R Int : 114 ms QRS Dur : 78 ms QT Int : 320 ms P-R-T Axes : 66 86 33 degrees QTcB Int : 400 ms Normal sinus rhythm Cannot rule out Anterior infarct , age undetermined Abnormal ECG No previous ECGs available Confirmed by Khoi Glaser ([id number]) on 06/12/2024 10:03:44 PM Referred By: REFERRED SELF Confirmed By: Khoi Glaser
[2024-06-12] MEDS: dexMEDEtomidine 200 MCG/50 ML BAG IV SCH (22:04)
[2024-06-13] MEDS: MAGNESIUM SULFATE / D5W 1 GM/100 ML BAG IV SCH (06:10)
--- NOTE | 2024-06-13 08:29 | Critical Care Progress Note ---
Date of Service June 13, 2024 Assessment & Plan (1) Acute hypoxic respiratory failure: (2) Abnormal chest CT: (3) CP (cerebral palsy): (4) Scoliosis: (5) Collapse of left lung: Plan CT chest 06/10/2024 personally reviewed: Chronic collapse of the left side of the lung Atelectasis of the right middle and lower lobe Severe thoracic scoliosis No significant mediastinal lymphadenopathy -- Acute hypoxic respiratory failure Likely secondary to mucous plugging on the right side Patient has chronic collapse of the left lung as evident from CAT scan done in 2021 Intubated 06/12/2024, extubated after bronchoscopy the same day Respiratory BioFire negative for everything on 06/10/2024 Procalcitonin 0.06 Nasal MRSA negative S/p bronchoscopy 06/12/2024, mucous plugging cleared Status post repeat bronchoscopy 06/13/2024 for mucous plugging --Apneic episodes Could be central Thought process with patient is usually hypoxic and hypercapnic at baseline and we are giving him a lot of oxygen which leads to central sleep apneas Will try to keep oxygen around 90-92% --Bouts of tachycardia improving to 170s Likely SVT Spontaneously resolved Continue to monitor -- Circulatory shock Likely secondary to sedation -- Restrictive lung disease Likely from chronic collapse of the left lung as well as severe scoliosis --DNR/DNI --Prophylaxis VTE: None GI: None Lines: Peripheral Diet: N.p.o. 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 Please note the above document was generated using voice recognition software. It may contain grammatical, syntax or spelling errors.Any formal questions or concerns about the content, text or information contained within the body of this dictation should be directly addressed to the provider for clarification. Admission and Anticipated Discharge Date Admission Date: June 10, 2024 Subjective Patient seen and examined at bedside. No acute distress. Overnight patient was restless for which she was started briefly on Precedex but he got bradycardic and it was discontinued Early in the morning patient had apneic episodes with desaturation into the 70s while on BiPAP Urgent bronchoscopy was performed after getting verbal consent from the family Review of Systems 2 Review of Systems: Unobtainable due to mental health condition and Unobtainable due to cognitive status Physical Exam 2 Physical Exam: Constitutional: No acute distress HEENT: PERRLA Respiratory system: Decreased air entry bilaterally, more decreased on the left, no wheeze, no rhonchi, minimal crackles bilaterally CVS: S1-S2 positive, bradycardia Abdomen: Soft, nontender, nondistended, positive bowel sounds x4 Extremities: +2 pulses bilaterally radialis/ dorsalis pedis, no cyanosis, m inimal bilateral pitting ankle edema Neuro: Somnolent, nonverbal Psych: Unable to assess G/U: No Bazzi Musculoskeletal: Severe scoliosis Skin: no rashes, warm and dry Lymphatic: no cervical or axillary lymphadenopathy Results & Data Results & Data Vital Signs (Past 12 Hours) Vital Signs Temp Pulse Pulse Resp BP BP Pulse Ox 06/13/24 07:00 36.4 C L 70 22 94/55 L 99 06/13/24 04:03 94 H 20 95 06/13/24 04:00 125/60 06/13/24 04:00 125/60 06/13/24 04:00 125/60 06/13/24 03:42 113 H 93 06/13/24 03:30 117 H 91 06/13/24 03:30 124/78 06/13/24 03:15 106 H 22 95 06/13/24 03:06 135 H 95 06/13/24 03:00 127/91 06/13/24 03:00 127/91 06/13/24 02:39 93 H 25 H 99 06/13/24 02:30 122/66 06/13/24 02:30 122/66 06/13/24 02:18 116 H 23 93 06/13/24 02:06 124 H 28 H 84 L 06/13/24 02:00 114/95 06/13/24 02:00 114/95 06/13/24 01:33 124 H 34 H 85 L 06/13/24 01:30 116/73 06/13/24 01:30 116/73 06/13/24 01:30 116/73 06/13/24 01:30 116/73 06/13/24 01:27 119 H 0 L 94 06/13/24 01:21 114 H 34 H 93 06/13/24 01:00 148/111 H 06/13/24 00:42 133 H 35 H 93 06/13/24 00:34 134 H 18 94 06/13/24 00:30 104/88 06/13/24 00:30 104/88 06/13/24 00:30 104/88 06/13/24 00:30 104/88 06/13/24 00:30 104/88 06/13/24 00:30 126 H 93 06/13/24 00:07 145 H 06/13/24 00:05 140 H 88 L 06/13/24 00:01 134/65 06/12/24 23:47 130 H 34 H 91 06/12/24 23:11 164 H 28 H 87 L 06/12/24 23:00 132/73 06/12/24 22:50 155 H 38 H 92 06/12/24 22:15 152 H 87 L 06/12/24 22:00 103/69 06/12/24 21:39 146 H 87 L 06/12/24 21:30 113/64 06/12/24 21:30 113/64 06/12/24 21:30 113/64 06/12/24 21:23 113 H 20 97 06/12/24 21:23 113 H 20 97 06/12/24 21:15 114 H 76 L 06/12/24 21:00 132 H 22 88 L 06/12/24 21:00 105/74 06/12/24 20:30 95 H 22 98 06/12/24 20:30 95/67 L O2 Del Method FiO2 06/13/24 07:00 BiPAP 70 06/13/24 04:03 06/13/24 04:00 06/13/24 04:00 06/13/24 04:00 06/13/24 03:42 06/13/24 03:30 06/13/24 03:30 06/13/24 03:15 70 06/13/24 03:06 06/13/24 03:00 06/13/24 03:00 06/13/24 02:39 06/13/24 02:30 06/13/24 02:30 06/13/24 02:18 06/13/24 02:06 06/13/24 02:00 06/13/24 02:00 06/13/24 01:33 06/13/24 01:30 06/13/24 01:30 06/13/24 01:30 06/13/24 01:30 06/13/24 01:27 06/13/24 01:21 BiPAP 06/13/24 01:00 06/13/24 00:42 06/13/24 00:34 70 06/13/24 00:30 06/13/24 00:30 06/13/24 00:30 06/13/24 00:30 06/13/24 00:30 06/13/24 00:30 06/13/24 00:07 06/13/24 00:05 06/13/24 00:01 06/12/24 23:47 06/12/24 23:11 06/12/24 23:00 06/12/24 22:50 06/12/24 22:15 06/12/24 22:00 06/12/24 21:39 06/12/24 21:30 06/12/24 21:30 06/12/24 21:30 06/12/24 21:23 55 06/12/24 21:23 BiPAP 55 06/12/24 21:15 06/12/24 21:00 06/12/24 21:00 06/12/24 20:30 06/12/24 20:30 Laboratory Results 06/13/24 08:16 06/13/24 08:16 Coding Level of Care Code 88313 SUB INP/OBS CARE 3/50MIN Diagnoses Acute hypoxic respiratory failure J96.[address] R93.89 CP (cerebral palsy) G80.9 Scoliosis M41.9 Scoliosis type: unspecified scoliosis Spinal region: unspecified Collapse of left lung J98.11 (4) Scoliosis Scoliosis type: unspecified scoliosis Spinal region: unspecified Qualified Code(s): M41.9 - Scoliosis, unspecified
[2024-06-13 09:09] LABS: Basophils # (auto) 0.02 K/uL (0.00-0.20); Basophils % (auto) 0.1 %; Hematocrit (blood only) 32.9 % (42.0-52.0); Hemoglobin 10.9 g/dl (14.0-18.0); Immature Granulocytes # (auto) 0.04 K/uL (0.01-0.20); Immature Granulocytes % (auto) 0.3 %; Lymphocytes # (auto) 1.26 K/uL (1.20-3.40); Lymphocytes % (auto) 8.7 %; Mean Corpuscular Hemoglobin 30.4 pg (25.0-34.0); Mean Corpuscular Hgb Conc 33.1 g/dL (32.0-36.0); Mean Corpuscular Volume 91.6 fL (80.0-100.0); Monocytes # (auto) 1.26 K/uL (0.11-0.59); Monocytes % (auto) 8.7 %; Neutrophils # (auto) 11.91 K/uL (1.40-6.50); Neutrophils % (auto) 82.2 %; Nucleated RBC # (auto) 0.02 K/uL (0.00-0.12); Nucleated RBC % (auto) 0.1 %; Platelet Count 94 K/uL (130-400); RDW Coefficient of Variation 15.3 % (11.5-14.5); RDW Standard Deviation 50.6 fL (36.4-46.3); Red Blood Count 3.59 M/uL (4.70-6.10); White Blood Count 14.49 K/ul (4.8-10.8)
--- NOTE | 2024-06-13 09:15 | XRay Report ---
XR chest 1V portable CLINICAL HISTORY: f/u COMPARISON STUDY: 06/12/2024 FINDINGS: Heart size and pulmonary vasculature are normal. Stable severe scoliosis. There is mild str anding in the lung bases, stable on the right and improved on the left. No other consolidation or ple ural effusion seen. No pneumothorax. IMPRESSION: Improved opacity left lung base. Stable mild stranding right lung base. ACT 112: Negative or not required by law. Electronically signed by: Luis Dimas M.D. 06/13/2024 9:14 AM
[2024-06-13 09:19] LABS: Albumin Level 3.6 gm/dl (3.4-5.0); BUN Creatinine Ratio 36.2 (10-20); Bilirubin,Total 0.7 mg/dl (0.2-1.0); Calcium 9.2 mg/dl (8.6-10.3); Creatinine Clr Calc Pharmacy 67.5 ml/min; Globulin 3.6 gm/dl (2.5-4.0); Potassium 4.3 mmol/L (3.5-5.1); Total Protein 7.2 gm/dl (6.0-8.3)
--- NOTE | 2024-06-13 09:56 | Procedure Note ---
Procedure Note: Bronchoscopy Procedure PREOPERATIVE DIAGNOSIS: Acute hypoxic respiratory failure with mucous plugging POSTOPERATIVE DIAGNOSIS: Mucous plugging of bilateral lung PROCEDURE PERFORMED: Flexible fiberoptic bronchoscopy with clearing of airway COMPLICATIONS: None. INDICATION: Hypoxia PROCEDURE: After obtaining an informed verbal consent from the father of the patient, patient was already in the ICU room. The patient had appropriate oxygen, blood pressure, heart rate, and respiratory rate monitoring applied and monitored continuously throughout the procedure. He was put on full face BiPAP with FiO2 100% Patient was given total 50 mcg of fentanyl during the procedure Bronchoscope was advanced through the mouth. There was mucus right at the vallecula which was suctioned out As soon as I passed through the vocal cords I was able to see mucous plug and secretions grayish-yellow in color in the main trachea along with on the kevin. It was more predominant on the left side. This was suctioned out After suctioning, the trachea appeared normal. The bronchoscope was then advanced through the kevin, which was sharp. After suctioning the scope was then advanced into the right main stem and each segment, subsegement in the right upper lobe, right middle lobe and right lower lobe were visualized. There were no other findings including evidence of mass, anatomic distortions, or hemorrhage. The bronchoscope was subsequently withdrawn and advanced into the left mainstem. The left lower lung anatomy seemed to be torturous, again, each segment and subsegment was well visualized. No specific masses or other lesions were identified throughout the tracheobronchial tree on the left. There seems to be atrophy of the left upper and left lower lobe mucosa The bronchoscope was then withdrawn to the mainstem. The area was suctioned clear. The bronchoscope was then withdrawn. The patient tolerated the procedure well without evidence of desaturation or complications. Recommendations: Follow-up chest x-ray Please note the above document was generated using voice recognition software. It may contain grammatical, syntax or spelling errors.Any formal questions or concerns about the content, text or information contained within the body of this dictation should be directly addressed to the provider for clarification. [facility] [place] Procedure Codes (Charges) Pulmonary/Thoracic Procedure 2: Pulmonary and Thoracic: 90426 Bronchoscopy, reclear airway Sedation/Anesthesia Procedure 1: Sedation/Anesthesia: 29386 Mod Sedation by the same physician;Init15 Min Child Age 5 & Up
[2024-06-13] MEDS: fentaNYL citrate PF 100 MCG/2 ML VIAL ONE (10:04)
[2024-06-13] MEDS: fentaNYL citrate PF 100 MCG/2 ML VIAL IV ONE (10:22)
--- NOTE | 2024-06-13 10:45 | XRay Report ---
XR chest 1V portable CLINICAL HISTORY: post bronch COMPARISON STUDY: Compared with 06/13/2024 FINDINGS: There is interval diffuse increased opacity at the left lung. There is mildly increased str anding opacity at the right lung base. No pneumothorax. Stable scoliosis. IMPRESSION: 1. Increased opacity diffusely at the left lung, possible left lung collapse. 2. Mildly increased stranding at the right lung base, likely atelectasis. ACT 112: Negative or not required by law. Electronically signed by: Luis Dimas M.D. 06/13/2024 10:44 AM
--- NOTE | 2024-06-13 13:05 | Post Anesthesia Assessment ---
Date of Service June 13, 2024 Post Sedation Assessment Vital Signs Temp Pulse Pulse Resp BP BP Pulse Ox 06/13/24 12:22 41 L 18 96 06/13/24 11:50 125/57 L 06/13/24 11:46 124/57 L 06/13/24 11:45 39 L 19 100 06/13/24 11:40 120/67 06/13/24 11:39 76 19 99 06/13/24 11:35 113/62 06/13/24 11:20 119/60 06/13/24 11:15 41 L 19 100 06/13/24 11:15 115/58 L 06/13/24 11:15 115/58 L 06/13/24 11:10 120/59 L 06/13/24 11:07 117/61 06/13/24 11:06 117/58 L 06/13/24 11:06 40 L 19 100 06/13/24 11:03 60 19 100 06/13/24 11:00 121/59 L 06/13/24 10:55 114/59 L 06/13/24 10:51 42 L 19 100 06/13/24 10:50 105/60 06/13/24 10:45 104/57 L 06/13/24 10:45 44 L 0 L 100 06/13/24 10:42 42 L 0 L 100 06/13/24 10:40 100/53 L 06/13/24 10:40 100/53 L 06/13/24 10:39 45 L 19 100 06/13/24 10:35 99/53 L 06/13/24 10:30 96/56 L 06/13/24 10:27 44 L 19 100 06/13/24 10:25 100/58 L 06/13/24 10:25 100/58 L 06/13/24 10:21 95/56 L 06/13/24 10:19 103/52 L 06/13/24 10:16 95/52 L 06/13/24 10:12 58 L 20 100 06/13/24 10:10 97/40 L 06/13/24 10:10 97/40 L 06/13/24 10:03 71 0 L 100 06/13/24 10:00 86/40 L 06/13/24 10:00 86/40 L 06/13/24 10:00 86/40 L 02/28/25 10:00 78 0 L 100 06/13/24 09:55 95/47 L 06/13/24 09:51 105 H 0 L 100 06/13/24 09:45 149/81 H 06/13/24 09:45 149/81 H 06/13/24 09:40 06/13/24 09:33 120/73 06/13/24 09:33 120/73 06/13/24 09:24 55 L 16 100 06/13/24 09:21 102/49 L 06/13/24 09:15 74 16 100 06/13/24 09:12 65 16 98 06/13/24 09:00 85 16 93 06/13/24 09:00 89/49 L 06/13/24 08:45 85 16 95 06/13/24 08:30 109/41 L 06/13/24 08:06 163 H 24 89 L 06/13/24 08:01 127/97 06/13/24 08:01 127/97 06/13/24 08:01 127/97 06/13/24 08:00 06/13/24 08:00 94 H 06/13/24 07:51 86 22 98 06/13/24 07:45 102 H 24 94 06/13/24 07:45 80 24 91 06/13/24 07:40 84/40 L 06/13/24 07:39 82/47 L 06/13/24 07:39 68 0 L 06/13/24 07:30 71 0 L 100 06/13/24 07:00 94/55 L 06/13/24 07:00 94/55 L 06/13/24 07:00 72 0 L 100 06/13/24 07:00 36.4 C L 70 22 94/55 L 99 06/13/24 06:39 73 0 L 98 06/13/24 04:03 94 H 20 95 06/13/24 04:00 125/60 06/13/24 04:00 125/60 06/13/24 04:00 125/60 06/13/24 03:42 113 H 93 06/13/24 03:30 117 H 91 06/13/24 03:30 124/78 06/13/24 03:15 106 H 22 95 06/13/24 03:06 135 H 95 06/13/24 03:00 127/91 06/13/24 03:00 127/91 06/13/24 02:39 93 H 25 H 99 06/13/24 02:30 122/66 06/13/24 02:30 122/66 06/13/24 02:18 116 H 23 93 06/13/24 02:06 124 H 28 H 84 L 06/13/24 02:00 114/95 06/13/24 02:00 114/95 06/13/24 01:33 124 H 34 H 85 L 06/13/24 01:30 116/73 06/13/24 01:30 116/73 06/13/24 01:30 116/73 06/13/24 01:30 116/73 06/13/24 01:27 119 H 0 L 94 06/13/24 01:21 114 H 34 H 93 06/13/24 01:00 148/111 H 06/13/24 00:42 133 H 35 H 93 06/13/24 00:34 134 H 18 94 06/13/24 00:30 104/88 06/13/24 00:30 104/88 06/13/24 00:30 104/88 06/13/24 00:30 104/88 06/13/24 00:30 104/88 06/13/24 00:30 126 H 93 06/13/24 00:07 145 H 06/13/24 00:05 140 H 88 L 06/13/24 00:01 134/65 06/12/24 23:47 130 H 34 H 91 06/12/24 23:11 164 H 28 H 87 L 06/12/24 23:00 132/73 06/12/24 22:50 155 H 38 H 92 06/12/24 22:15 152 H 87 L 06/12/24 22:00 103/69 06/12/24 21:39 146 H 87 L 06/12/24 21:30 113/64 06/12/24 21:30 113/64 06/12/24 21:30 113/64 06/12/24 21:23 113 H 20 97 06/12/24 21:23 113 H 20 97 06/12/24 21:15 114 H 76 L 06/12/24 21:00 132 H 22 88 L 06/12/24 21:00 105/74 06/12/24 20:30 95 H 22 98 06/12/24 20:30 95/67 L 06/12/24 20:15 115 H 24 97 06/12/24 20:00 98/63 L 06/12/24 20:00 98/63 L 06/12/24 20:00 98/63 L 06/12/24 19:48 132 H 18 92 06/12/24 19:30 06/12/24 19:12 97 H 18 89 L 06/12/24 19:00 104/81 O2 Del Method FiO2 06/13/24 12:22 30 06/13/24 11:50 06/13/24 11:46 06/13/24 11:45 06/13/24 11:40 06/13/24 11:39 06/13/24 11:35 06/13/24 11:20 06/13/24 11:15 06/13/24 11:15 06/13/24 11:15 06/13/24 11:10 06/13/24 11:07 06/13/24 11:06 06/13/24 11:06 06/13/24 11:03 06/13/24 11:00 06/13/24 10:55 06/13/24 10:51 06/13/24 10:50 06/13/24 10:45 06/13/24 10:45 06/13/24 10:42 06/13/24 10:40 06/13/24 10:40 06/13/24 10:39 06/13/24 10:35 06/13/24 10:30 06/13/24 10:27 06/13/24 10:25 06/13/24 10:25 06/13/24 10:21 06/13/24 10:19 06/13/24 10:16 06/13/24 10:12 06/13/24 10:10 06/13/24 10:10 06/13/24 10:03 06/13/24 10:00 06/13/24 10:00 06/13/24 10:00 06/13/24 10:00 06/13/24 09:55 06/13/24 09:51 06/13/24 09:45 06/13/24 09:45 06/13/24 09:40 BiPAP 06/13/24 09:33 06/13/24 09:33 06/13/24 09:24 06/13/24 09:21 06/13/24 09:15 06/13/24 09:12 06/13/24 09:00 06/13/24 09:00 06/13/24 08:45 06/13/24 08:30 06/13/24 08:06 06/13/24 08:01 06/13/24 08:01 06/13/24 08:01 06/13/24 08:00 BiPAP 40 06/13/24 08:00 06/13/24 07:51 06/13/24 07:45 70 06/13/24 07:45 BiPAP 60 06/13/24 07:40 06/13/24 07:39 06/13/24 07:39 06/13/24 07:30 06/13/24 07:00 06/13/24 07:00 06/13/24 07:00 06/13/24 07:00 BiPAP 70 06/13/24 06:39 06/13/24 04:03 06/13/24 04:00 06/13/24 04:00 06/13/24 04:00 06/13/24 03:42 06/13/24 03:30 06/13/24 03:30 06/13/24 03:15 70 06/13/24 03:06 06/13/24 03:00 06/13/24 03:00 06/13/24 02:39 06/13/24 02:30 06/13/24 02:30 06/13/24 02:18 06/13/24 02:06 06/13/24 02:00 06/13/24 02:00 06/13/24 01:33 06/13/24 01:30 06/13/24 01:30 06/13/24 01:30 06/13/24 01:30 06/13/24 01:27 06/13/24 01:21 BiPAP 06/13/24 01:00 06/13/24 00:42 06/13/24 00:34 70 06/13/24 00:30 06/13/24 00:30 06/13/24 00:30 06/13/24 00:30 06/13/24 00:30 06/13/24 00:30 06/13/24 00:07 06/13/24 00:05 06/13/24 00:01 06/12/24 23:47 06/12/24 23:11 06/12/24 23:00 06/12/24 22:50 06/12/24 22:15 06/12/24 22:00 06/12/24 21:39 06/12/24 21:30 06/12/24 21:30 06/12/24 21:30 06/12/24 21:23 55 06/12/24 21:23 BiPAP 55 06/12/24 21:15 06/12/24 21:00 06/12/24 21:00 06/12/24 20:30 06/12/24 20:30 06/12/24 20:15 06/12/24 20:00 06/12/24 20:00 06/12/24 20:00 06/12/24 19:48 06/12/24 19:30 BiPAP 55 06/12/24 19:12 06/12/24 19:00 Discharge Sedation Level of Care: Phase I Post Sedation Plan On clinical assessment, the patient appears to have tolerated the sedation without complications. Patient is recovering as anticipated. Patient will continue to be monitored by nursing and may be discharged when sedation discharge criteria are met per below protocol. Upon Completions of procedure up to 15 minutes continue every 5 minute vital signs and the P.A.R. score; then discharge to a Phase I or Fast Track to Phase II per the following guidelines: * Discharge Patient to appropriate Phase II area if PAR is 8 or greater or return to pre- procedure baseline. The post - procedure orders will be as directed. * If PAR score is less than 8 or not return to pre-procedure baseline then patient will follow Phase I monitoring till PAR is reached for Phase II. The Phase I may be done in procedure room or may call to secure a Phase I area. * If naloxone or flumazenil are used for reversal, hold in Phase I for continued monitoring from when last reversal dose was given for a minimum of 60 minutes or longer pending the nurse and/or physician discretion of patient condition before discharge to Phase II. Please call the Sedation Physician to re-evaluate and complete post-note for discharge to Phase II area. Do NOT discharge from procedure sedation or Phase 1 until post- sedation evaluation note is complete by procedure /sedation MD Sedation Discharge Instructions to be given to the patient at discharge to home.
--- NOTE | 2024-06-13 16:28 | Hospitalist Progress Note ---
Date of Service June 13, 2024 Assessment & Plan (1) Pneumonia: (2) Acute hypoxic respiratory failure: (3) Cerebral palsy: Plan Srinivasan is a 38-year-old male with PMH of cerebral palsy, seizure, aspiration pneumonia, and chronic restrictive lung disease. He presented on 06/10 for congestion and productive cough.Found to have chronic left sided lung collapse and aspiration PNA on right, with significant hypoxic respiratory failure. He was admitted and had worsening respiratory failure on 06/12 requiring intubation and bronchoscopy to clear out secretions. He was then quickly extubated to BiPAP at parents' request for comfort and decision made not to reintubate. He had rec urrent mucous plugging and decompensation again on 06/13 and had urgent bronchoscopy under sedation for clearance of secretions and some clot. He remains on continuous BiPAP. He also remains on vasopressors with phenylephrine. #Aspiration Pneumonia/Chronic left lung collapse/Severe scoliosis/Acute on chronic respiratory failure with hypoxia-P/w worsening cough, thick white sputum production, profound hypoxemia with POx 68% on RA on arrival. On 1.5LNC O2 at home. 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 Biofire resp panel neg. Started on cough assist, nebs, Mucomyst, Cefepime, Vanco. With worsening hypoxia and mucus plugging AM on 06/11 requiring 15L O2. On AM of 06/12, he had acute worsening of respiratory status with POx 70s, was intubated, had bronchoscopy to clear secretions, then extubated to BiPAP. Had recurrent bronchoscopy on 06/13 with clearance of mucous plugging and blood clots. MRSA swab neg. Blood cultures NGTD , BAL lavage cxs with pinpoint growth- reincubating, sputum culture pending -continue BiPAP and wean off as tolerated -Continue Cefepime, Flagyl -Elevate HOB, aspiration cautions -Continue Hypertonic 7% saline neb BID, Mucomyst and formoterol nebs, cough assist cautiously as this creates mucous plugging which causes respiratory failure -Appreciate pulmonary/ICU management -keep NPO and continue maintenance IVFs #Bradycardia/hypotension-bradycardia perhaps secondary to phenylephrine? Not on any AV eric blockers. He also had runs of SVT during episode of severe hypoxia on 06/13. TSH normal. Remains on low-dose of phenylephrine. -Appreciate ICU management #Elevated AST-isolated, likely related to possibly some hypotension induced liver injury? -Follow LFTs #Cerebral palsy/Seizure disorder/Myoclonic jerks/Functional quadriplegia-no seizures in a long time as per Dad. Pt w/cerebral palsy, wheelchair-bound, and requires total care assist, significant muscular atrophy of upper/lower extremities; non-verbal, with severe scoliosis -Continue Depakote IV twice daily while NPO -Supportive care-Total ADL assist, I&O, off-loading pressure points #Depression-hold po sertraline while NPO #Severe protein-calorie malnutrition-BMI 14, frail appearing, with risk factors of Cerebral palsy, scoliosis, chronic aspiration - RD consult when appropriate -if not able to safely take po over the next few days, would discuss tube feeds -continue NPO for now due to aspiration PNA and severe hypoxemia #Thrombocytopenia-likely due to acute infection, mild at this time at 94 and stable from previous -follow CBC DVT Proph- Lovenox held due to blood clots found in lungs on bronchoscopy Dispo-continued stay in ICU, prognosis very guarded, discussed care with Dad and 2 brothers at bedside on 06/13. He is now a DNR/DNI Admission and Anticipated Discharge Date Admission Date: June 10, 2024 Subjective Patient had acute decompensation again this morning, became severely hypoxic, had urgent bronchoscopy to clear out sputum and some blood clots. He also had recurrence of hypotension and was placed on phenylephrine. He was on Precedex overnight which was stopped for bradycardia. However, he remains bradycardic in the 40s and sometimes into the 30s throughout the day. He remains on BiPAP all day. Discussed care with dad and 2 brothers at the bedside. Physical Exam Constitutional: + ill appearing, + thin, + behavioral li mitations (nonverbal) and + underweight Respiratory: normal respiratory effort (On BiPAP); no respiratory distress Auscultation: + diminished lung sounds (left side,right base) and + rhonchi (right upper lung field); no crackles and no wheezes Cardiovascular: Rate/Rhythm: regular rhythm and + bradycardic Heart Sounds: no murmur Gastrointestinal (Abdomen): Inspection/Auscultation: normal bowel sounds; abdomen not distended Percussion/Palpation: abdomen soft; abdomen nontender Musculoskeletal: Contractures all 4 extremities Results & Data Results & Data Vital Signs (Past 12 Hours) Vital Signs Temp Pulse Pulse Resp BP BP Pulse Ox 06/13/24 16:00 36.5 C 22 06/13/24 15:46 47 L 18 100 06/13/24 14:15 68 0 L 98 06/13/24 14:15 78/51 L 06/13/24 14:15 78/51 L 06/13/24 14:15 78/51 L 06/13/24 14:07 50 L 19 95 06/13/24 14:00 96/51 L 06/13/24 13:51 49 L 28 H 99 06/13/24 13:45 118/68 06/13/24 13:45 118/68 06/13/24 13:45 48 L 0 L 100 06/13/24 13:33 44 L 19 99 06/13/24 13:30 115/57 L 06/13/24 13:15 102/59 L 06/13/24 13:15 71 28 H 92 06/13/24 13:10 128/75 06/13/24 13:10 128/75 06/13/24 13:05 125/64 06/13/24 13:00 104/59 L 06/13/24 12:55 121/66 06/13/24 12:51 41 L 18 98 06/13/24 12:50 101/63 06/13/24 12:45 120/64 06/13/24 12:42 40 L 19 97 06/13/24 12:35 89/63 L 06/13/24 12:33 79 34 H 94 06/13/24 12:30 101/58 L 06/13/24 12:30 48 L 19 96 06/13/24 12:25 109/59 L 06/13/24 12:24 39 L 19 98 06/13/24 12:22 41 L 18 96 06/13/24 12:21 44 L 19 95 06/13/24 12:20 124/58 L 06/13/24 12:20 124/58 L 06/13/24 12:10 108/52 L 06/13/24 12:06 41 L 19 95 06/13/24 12:05 130/61 06/13/24 11:57 42 L 19 97 06/13/24 11:55 107/59 L 06/13/24 11:50 125/57 L 06/13/24 11:46 124/57 L 06/13/24 11:45 39 L 19 100 06/13/24 11:40 120/67 06/13/24 11:39 76 19 99 06/13/24 11:35 113/62 06/13/24 11:20 119/60 06/13/24 11:15 41 L 19 100 06/13/24 11:15 115/58 L 06/13/24 11:15 115/58 L 06/13/24 11:10 120/59 L 06/13/24 11:07 117/61 06/13/24 11:06 117/58 L 06/13/24 11:06 40 L 19 100 06/13/24 11:03 60 19 100 06/13/24 11:00 121/59 L 06/13/24 10:55 114/59 L 06/13/24 10:51 42 L 19 100 06/13/24 10:50 105/60 06/13/24 10:45 104/57 L 06/13/24 10:45 44 L 0 L 100 06/13/24 10:42 42 L 0 L 100 06/13/24 10:40 100/53 L 06/13/24 10:40 100/53 L 06/13/24 10:39 45 L 19 100 06/13/24 10:35 99/53 L 06/13/24 10:30 96/56 L 06/13/24 10:27 44 L 19 100 06/13/24 10:25 100/58 L 06/13/24 10:25 100/58 L 06/13/24 10:21 95/56 L 06/13/24 10:19 103/52 L 06/13/24 10:16 95/52 L 06/13/24 10:12 58 L 20 100 06/13/24 10:10 97/40 L 06/13/24 10:10 97/40 L 06/13/24 10:03 71 0 L 100 06/13/24 10:00 86/40 L 06/13/24 10:00 86/40 L 06/13/24 10:00 86/40 L 06/13/24 10:00 78 0 L 100 06/13/24 09:55 95/47 L 06/13/24 09:51 105 H 0 L 100 06/13/24 09:45 149/81 H 06/13/24 09:45 149/81 H 06/13/24 09:40 06/13/24 09:33 120/73 06/13/24 09:33 120/73 06/13/24 09:24 55 L 16 100 06/13/24 09:21 102/49 L 06/13/24 09:15 74 16 100 06/13/24 09:12 65 16 98 06/13/24 09:00 85 16 93 06/13/24 09:00 89/49 L 06/13/24 08:45 85 16 95 06/13/24 08:30 109/41 L 06/13/24 08:06 163 H 24 89 L 06/13/24 08:01 127/97 06/13/24 08:01 127/97 06/13/24 08:01 127/97 06/13/24 08:00 06/13/24 08:00 94 H 06/13/24 07:51 86 22 98 06/13/24 07:45 102 H 24 94 06/13/24 07:45 80 24 91 06/13/24 07:40 84/40 L 06/13/24 07:39 82/47 L 06/13/24 07:39 68 0 L 06/13/24 07:30 71 0 L 100 06/13/24 07:00 94/55 L 06/13/24 07:00 94/55 L 06/13/24 07:00 72 0 L 100 06/13/24 07:00 36.4 C L 70 22 94/55 L 99 06/13/24 06:39 73 0 L 98 O2 Del Method FiO2 06/13/24 16:00 06/13/24 15:46 60 06/13/24 14:15 06/13/24 14:15 06/13/24 14:15 06/13/24 14:15 06/13/24 14:07 35 06/13/24 14:00 06/13/24 13:51 06/13/24 13:45 06/13/24 13:45 06/13/24 13:45 06/13/24 13:33 06/13/24 13:30 06/13/24 13:15 06/13/24 13:15 06/13/24 13:10 06/13/24 13:10 06/13/24 13:05 06/13/24 13:00 06/13/24 12:55 06/13/24 12:51 06/13/24 12:50 06/13/24 12:45 06/13/24 12:42 06/13/24 12:35 06/13/24 12:33 06/13/24 12:30 06/13/24 12:30 06/13/24 12:25 06/13/24 12:24 06/13/24 12:22 30 06/13/24 12:21 06/13/24 12:20 06/13/24 12:20 06/13/24 12:10 06/13/24 12:06 06/13/24 12:05 06/13/24 11:57 06/13/24 11:55 06/13/24 11:50 06/13/24 11:46 06/13/24 11:45 06/13/24 11:40 06/13/24 11:39 06/13/24 11:35 06/13/24 11:20 06/13/24 11:15 06/13/24 11:15 06/13/24 11:15 06/13/24 11:10 06/13/24 11:07 06/13/24 11:06 06/13/24 11:06 06/13/24 11:03 06/13/24 11:00 06/13/24 10:55 06/13/24 10:51 06/13/24 10:50 06/13/24 10:45 06/13/24 10:45 06/13/24 10:42 06/13/24 10:40 06/13/24 10:40 06/13/24 10:39 06/13/24 10:35 06/13/24 10:30 06/13/24 10:27 06/13/24 10:25 06/13/24 10:25 06/13/24 10:21 06/13/24 10:19 06/13/24 10:16 06/13/24 10:12 06/13/24 10:10 06/13/24 10:10 06/13/24 10:03 06/13/24 10:00 06/13/24 10:00 06/13/24 10:00 06/13/24 10:00 06/13/24 09:55 06/13/24 09:51 06/13/24 09:45 06/13/24 09:45 06/13/24 09:40 BiPAP 06/13/24 09:33 06/13/24 09:33 06/13/24 09:24 06/13/24 09:21 06/13/24 09:15 06/13/24 09:12 06/13/24 09:00 06/13/24 09:00 06/13/24 08:45 06/13/24 08:30 06/13/24 08:06 06/13/24 08:01 06/13/24 08:01 06/13/24 08:01 06/13/24 08:00 BiPAP 40 06/13/24 08:00 06/13/24 07:51 06/13/24 07:45 70 06/13/24 07:45 BiPAP 60 06/13/24 07:40 06/13/24 07:39 06/13/24 07:39 06/13/24 07:30 06/13/24 07:00 06/13/24 07:00 06/13/24 07:00 06/13/24 07:00 BiPAP 70 06/13/24 06:39 Laboratory Results CBC, BMP, magnesium, TSH, LFTs, BAL culture, sputum culture reviewed PG Care Time/CCT Total # of Minutes Spent Total Time Spent with Patient: Total time spent is greater than 50% in coordination of care (as documented) at patient's floor/unit and/or counseling patient: Coding Level of Care Code 35864 SUB INP/OBS CARE 3/50MIN Diagnoses Pneumonia J18.9 Acute hypoxic respiratory failure J96.01 Cerebral palsy G80.9
--- NOTE | 2024-06-13 21:06 | Electrocardiogram Report ---
Test Reason : Blood Pressure : */* mmHG Vent. Rate : 45 BPM Atrial Rate : 45 BPM P-R Int : 130 ms QRS Dur : 90 ms QT Int : 450 ms P-R-T Axes : 65 68 50 degrees QTcB Int : 389 ms Sinus bradycardia with sinus arrhythmia When compared with ECG of 12-Jun-2024 13:41, Vent. rate has decreased by 49 bpm Minimal criteria for Anterior infarct are no longer Present Confirmed by Khoi Glaser ([id number]) on 06/13/2024 9:06:13 PM Referred By: REFERRED SELF Confirmed By: Khoi Glaser
--- NOTE | 2024-06-14 07:24 | Hospitalist Progress Note ---
Date of Service June 14, 2024 Assessment & Plan (1) Pneumonia: (2) Acute hypoxic respiratory failure: (3) Cerebral palsy: Plan Srinivasan is a 38-year-old male with PMH of cerebral palsy, seizure, aspiration pneumonia, and chronic restrictive lung disease. He presented on 06/10 for con gestion and productive cough.Found to have chronic left sided lung collapse and aspiration PNA on right, with significant hypoxic respiratory failure. He was admitted and had worsening respiratory failure on 06/12 requiring intubation and bronchoscopy to clear out secretions. He was then quickly extubated to BiPAP at parents' request for comfort and decision made not to reintubate. He had recurrent mucous plugging and decompensation again on 06/13 and had urgent bronchoscopy under sedation for clearance of secretions and some clot. He has been transitioned to high flow NC with titration downward, oral feedings remain in question #Aspiration Pneumonia/Chronic left lung collapse/Severe scoliosis/Acute on chronic respiratory failure with hypoxia-. On 1.5LNC O2 at home. 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 Biofire resp panel neg. Required 2 bronchoscopies to clear lungs, transiently on ventilator now off MRSA swab neg. Blood cultures NGTD , BAL lavage cxs with pinpoint growth- reincubating, sputum culture pending Continue Cefepime, Flagyl cough assist cautiously as this creates mucous plugging which causes respiratory failure #Bradycardia/hypotension-bradycardia perhaps secondary to phenylephrine? Not on any AV eric blockers. He also had runs of SVT during episode of severe hypoxia on 06/13. TSH normal. Remains on low-dose of phenylephrine. #Elevated AST-isolated, likely related to possibly some hypotension induced liver injury? -Follow LFTs #Cerebral palsy/Seizure disorder/Myoclonic jerks/Functional quadriplegia-no seizures in a long time as per Dad. Pt w/cerebral palsy, wheelchair-bound, and requires total care assist, significant muscular atrophy of upper/lower extremities; non-verbal, with severe scoliosis -Continue Depakote IV twice daily while NPO -Supportive care-Total ADL assist, I&O, off-loading pressure points #Depression-hold po sertraline while NPO #Severe protein-calorie malnutrition-BMI 14, frail appearing, with risk factors of Cerebral palsy, scoliosis, chronic aspiration - RD consult when appropriate, may need to eval for swallowing safety -if not able to safely take po over the next few days, would discuss tube feeds -continue NPO for now due to aspiration PNA and severe hypoxemia, start ppn on 06/14/24 #Thrombocytopenia-likely due to acute infection, mild at this time at 94 and stable from previous -follow CBC DVT Proph- Lovenox held due to blood clots found in lungs on bronchoscopy Dispo-continued stay in ICU, prognosis very guarded, discussed care with Dad at bedside on 06/14/24 He is now a DNR/DNI Admission and Anticipated Discharge Date Admission Date: June 10, 2024 Subjective this pt is in his typical mental state according to father, I did discuss with him regarding that medical decision makers do not feel it is safe to start oral feedings and that alternative feeding would be not without risk, father states that this was told to them when he was younger and the family got him to eat safely. Physical Exam Physical Exam: arouses to name cardiac is regular lungs are diminished abd, difficult exam due to chronic body positioning Results & Data Results & Data Vital Signs (Past 12 Hours) Vital Signs Temp Pulse Pulse Resp BP BP Pulse Ox 06/14/24 06:49 102/72 06/14/24 06:00 61 0 L 91 06/14/24 05:00 61 0 L 94 06/14/24 04:30 110/74 06/14/24 04:03 66 0 L 93 06/14/24 03:27 06/14/24 03:27 97.9 F 104/74 06/14/24 03:06 71 0 L 87 L 06/14/24 02:03 58 L 0 L 96 06/14/24 02:00 122/84 06/14/24 01:00 42 L 0 L 94 06/14/24 01:00 112/86 06/14/24 00:18 63 0 L 93 06/14/24 00:00 06/14/24 00:00 55 L 06/14/24 00:00 98.1 F 115/82 06/13/24 23:59 56 L 24 93 06/13/24 23:15 81 0 L 91 06/13/24 23:09 51 L 22 95 06/13/24 23:00 115/82 06/13/24 22:11 118/90 06/13/24 22:00 60 0 L 100 06/13/24 21:45 60 0 L 93 06/13/24 20:57 06/13/24 20:32 122/82 06/13/24 20:21 40 L 0 L 100 06/13/24 20:00 96.6 F L 06/13/24 19:51 41 L 0 L 98 Pulse Ox O2 Del Method O2 Del Method O2 Flow Rate FiO2 06/14/24 06:49 06/14/24 06:00 06/14/24 05:00 06/14/24 04:30 06/14/24 04:03 06/14/24 03:27 95 High Flow Nasal Cannula 06/14/24 03:27 06/14/24 03:06 06/14/24 02:03 06/14/24 02:00 06/14/24 01:00 06/14/24 01:00 06/14/24 00:18 06/14/24 00:00 95 High Flow Nasal Cannula 06/14/24 00:00 06/14/24 00:00 06/13/24 23:59 High Flow Nasal Cannula 35 45 06/13/24 23:15 06/13/24 23:09 High Flow Nasal Cannula 35 45 06/13/24 23:00 06/13/24 22:11 06/13/24 22:00 06/13/24 21:45 06/13/24 20:57 BiPAP 45 06/13/24 20:32 06/13/24 20:21 06/13/24 20:00 06/13/24 19:51 PG Care Time/CCT Total # of Minutes Spent Total Time Spent with Patient: Total time spent is greater than 50% in coordination of care (as documented) at patient's floor/unit and/or counseling patient: Coding Level of Care Code 82011 SUB INP/OBS CARE 3/50MIN Diagnoses Pneumonia J18.9 Acute hypoxic respiratory failure J96.01 Cerebral palsy G80.9
--- NOTE | 2024-06-14 07:42 | Critical Care Progress Note ---
Date of Service June 14, 2024 Assessment & Plan (1) Acute hypoxic respiratory failure: (2) Abnormal chest CT: (3) CP (cerebral palsy): (4) Scoliosis: (5) Collapse of left lung: Plan CT chest 06/10/2024 personally reviewed: Chronic collapse of the left side of the lung Atelectasis of the right middle and lower lobe Severe thoracic scoliosis No significant mediastinal lymphadenopathy -- Acute hypoxic respiratory failure Likely secondary to mucous plugging on the right side Patient has chronic collapse of the left lung as evident from CAT scan done in 2021 Intubated 06/12/2024, extubated after bronchoscopy the same day Respiratory BioFire negative for everything on 06/10/2024 Procalcitonin 0.06 Nasal MRSA negative S/p bronchoscopy 06/12/2024, mucous plugging cleared Status post repeat bronchoscopy 06/13/2024 for mucous plugging --Apneic episodes Could be central Thought process with patient is usually hypoxic and hypercapnic at baseline and we are giving him a lot of oxygen which leads to central sleep apneas Will try to keep oxygen around 90-92% --Patient seems to have Tachy-cinthia syndrome Bouts of tachycardia improving to 170s, Likely SVT Spontaneously resolved Continue to monitor -- Circulatory shock Likely secondary to sedation -- Restrictive lung disease Likely from chronic collapse of the left lung as well as severe scoliosis --DNR/DNI --Prophylaxis VTE: None GI: None Lines: Peripheral Diet: N.p.o. Plan: In/out: +1730, urine output not measured Continue with high flow for the time being Unfortunately we did not have good vascular access, he only has 1 peripheral line. IV team was not able to put on the belt line on the left hand. The question right now for the family to discuss would be that the patient has aspiration and we will not be able to feed him. I do not think a PEG tube will be easy in his case. But if they want to pursue it and will need GI to be involved in future Continue keeping patient n.p.o. Continue with D5 NS Try to wean off phenylephrine Case was discussed with father at bedside Please note the above document was generated using voice recognition software. It may contain grammatical, syntax or spelling errors.Any formal questions or concerns about the content, text or information contained within the body of this dictation should be directly addressed to the provider for clarification. Admission and Anticipated Discharge Date Admission Date: June 10, 2024 Subjective Patient seen and examined at bedside. No acute distress, no adverse events overnight He was on high flow. Saturating 92-93% on 35 L, 45% FiO2 Was on low-dose phenylephrine. He is coughing up and bringing up phlegm which we are suctioning out. Review of Systems 2 Review of Systems: All systems reviewed & are unremarkable except as noted in Subjective Physical Exam 2 Physical Exam: Constitutional: No acute distress HEENT: PERRLA Respiratory system: Decreased air entry bilaterally, more decreased on the left, no wheeze, no rhonchi, minimal crackles bilaterally CVS: S1-S2 positive Abdomen: Soft, nontender, nondistended, positive bowel sounds x4 Extremities: +2 pulses bilaterally radialis/ dorsalis pedis, no cyanosis, m inimal bilateral pitting ankle edema, +2 edema left upper extremity Neuro: Nonverbal Psych: Unable to assess G/U: No Bazzi Musculoskeletal: Severe scoliosis Skin: no rashes, warm and dry Lymphatic: no cervical or axillary lymphadenopathy Results & Data Results & Data Vital Signs (Past 12 Hours) Vital Signs Temp Pulse Pulse Resp BP BP Pulse Ox 06/14/24 06:49 102/72 06/14/24 06:00 61 0 L 91 06/14/24 05:00 61 0 L 94 06/14/24 04:30 110/74 06/14/24 04:03 66 0 L 93 06/14/24 03:27 06/14/24 03:27 36.6 C 104/74 06/14/24 03:06 71 0 L 87 L 06/14/24 02:03 58 L 0 L 96 06/14/24 02:00 122/84 06/14/24 01:00 42 L 0 L 94 06/14/24 01:00 112/86 06/14/24 00:18 63 0 L 93 06/14/24 00:00 06/14/24 00:00 55 L 06/14/24 00:00 36.7 C 115/82 06/13/24 23:59 56 L 24 93 06/13/24 23:15 81 0 L 91 06/13/24 23:09 51 L 22 95 06/13/24 23:00 115/82 06/13/24 22:11 118/90 06/13/24 22:00 60 0 L 100 06/13/24 21:45 60 0 L 93 06/13/24 20:57 06/13/24 20:32 122/82 06/13/24 20:21 40 L 0 L 100 06/13/24 20:00 35.9 C L 06/13/24 19:51 41 L 0 L 98 Pulse Ox O2 Del Method O2 Del Method O2 Flow Rate FiO2 06/14/24 06:49 06/14/24 06:00 06/14/24 05:00 06/14/24 04:30 06/14/24 04:03 06/14/24 03:27 95 High Flow Nasal Cannula 06/14/24 03:27 06/14/24 03:06 06/14/24 02:03 06/14/24 02:00 06/14/24 01:00 06/14/24 01:00 06/14/24 00:18 06/14/24 00:00 95 High Flow Nasal Cannula 06/14/24 00:00 06/14/24 00:00 06/13/24 23:59 High Flow Nasal Cannula 35 45 06/13/24 23:15 06/13/24 23:09 High Flow Nasal Cannula 35 45 06/13/24 23:00 06/13/24 22:11 06/13/24 22:00 06/13/24 21:45 06/13/24 20:57 BiPAP 45 06/13/24 20:32 06/13/24 20:21 06/13/24 20:00 06/13/24 19:51 Laboratory Results 06/13/24 08:16 06/13/24 08:16 Coding Level of Care Code 50416 SUB INP/OBS CARE 3/50MIN Diagnoses Acute hypoxic respiratory failure J96.[address] R93.89 CP (cerebral palsy) G80.9 Scoliosis M41.9 Scoliosis type: unspecified scoliosis Spinal region: unspecified Collapse of left lung J98.11 (4) Scoliosis Scoliosis type: unspecified scoliosis Spinal region: unspecified Qualified Code(s): M41.9 - Scoliosis, unspecified
--- NOTE | 2024-06-14 16:20 | Procedure Note ---
Procedure Note: Bronchoscopy Procedure PREOPERATIVE DIAGNOSIS: Acute hypoxic respiratory failure with mucous plugging POSTOPERATIVE DIAGNOSIS: Mucous plugging at the trachea as well as right lower lobe PROCEDURE PERFORMED: Flexible fiberoptic bronchoscopy with clearing of the airway COMPLICATIONS: None. INDICATION: Hypoxia PROCEDURE: After obtaining an informed verbal consent from the father of the patient, patient was already in the ICU room. The patient had appropriate oxygen, blood pressure, heart rate, and respiratory rate monitoring applied and monitored continuously throughout the procedure. He was put on 60 L, 100% high flow and oxy mask on top of it Topical lidocaine 1% spray was used as local anesthetic due to urgency. Bronchoscope was advanced through the mouth. Patient has very torturous trachea with luminal narrowing at a point. There was a mucous plug provide at that junction which was suctioned out. I had to pull the scope out to get rid of the plug. It was mildly blood-tinged Significant amount of cheng secretion was again appreciated at the kevin going into the right main which was suctioned out. After suctioning, the trachea appeared normal. The bronchoscope was then advanced through the kevin, which was sharp. After suctioning the scope was then advanced into the right main stem and each segment, subsegement in the right upper lobe, right middle lobe and right lower lobe were visualized. There were no other findings including evidence of mass, anatomic distortions, or hemorrhage. The bronchoscope was subsequently withdrawn and advanced into the left mainstem. The left lower lung anatomy seemed to be torturous, again, each segment and subsegment was well visualized. No specific masses or other lesions were identified throughout the tracheobronchial tree on the left. There seems to be atrophy of the left upper and left lower lobe mucosa There was minimal bloodstained mucosa appreciated especially in the left lower lobe The bronchoscope was then withdrawn to the mainstem. The area was suctioned clear. The bronchoscope was then withdrawn. The patient tolerated the procedure well without evidence of desaturation or complications. Recommendations: Follow-up chest x-ray Please note the above document was generated using voice recognition software. It may contain grammatical, syntax or spelling errors.Any formal questions or concerns about the content, text or information contained within the body of this dictation should be directly addressed to the provider for clarification. [facility] [place] Codes (Charges) Pulmonary/Thoracic Procedure 1: Pulmonary and Thoracic: 87353 Bronchoscopy, reclear airway
--- NOTE | 2024-06-14 16:24 | Communication Note ---
Date of Service: June 14, 2024 Critical care addendum: I was looking at the monitor and there was significant bradycardia and 4-5 seconds of asystole appreciated on the patient's telemetry strip. I went into the room and found the patient to be apneic. Patient's nurse Bonnie as well as Misbah were in the room doing chest PT as well as trying to suction the mouth. High flow was increased to 60 L and 100% FiO2 Multiple efforts of suctioning through the mouth did not resolve any significant aspiration of secretions. Patient saturation was still in the high 50s. Plan was made to do emergent bronchoscopy. RT was called at bedside with a portable bronchoscope. Topical lidocaine spray was used. Patient saturation improved during and after bronchoscopy. Patient's father who was in the room and waited outside was updated regarding the condition. I do expect similar instance to happen in future as patient does not have the capacity to clear the airway The best thing we can offer is CoughAssist along with Mucomyst and 7% saline All questions and queries of the patient's father were answered in depth I have personally spent 35 minutes of critical care time in the direct management of this patient. This is a life/limb threatening event. This includes time spent evaluating patient, direct bedside care, chart review, placing orders, interpretation of diagnostic studies, discussion with consultants, patient, and family members, as well as other required patient management activities. This time is exclusive of all separately billable procedures, and teaching time and separate from and in addition to any other critical care service time. Please note the above document was generated using voice recognition software. It may contain grammatical, syntax or spelling errors. Coding Level of Care Code 64127 CRITICAL CARE 1ST 30-74M
[2024-06-14] MEDS ORDERED: ACETYLCYSTEINE 20% INHAL SOLN 4ML ***DISPENSED BY RESP. INH SCH (19:00)
[2024-06-14] MEDS: ACETYLCYSTEINE 20% INHAL SOLN 4ML ***DISPENSED BY RESP. INH SCH (20:34)
[2024-06-15] MEDS ORDERED: DEXTROSE 10% 1,000 ML IV PRN (07:22)
[2024-06-15] MEDS ORDERED: TPN/PPN CONSULT PHARMACY PRN (07:28)
--- NOTE | 2024-06-15 07:38 | Hospitalist Progress Note ---
Date of Service June 15, 2024 Assessment & Plan (1) Pneumonia: (2) Acute hypoxic respiratory failure: (3) Cerebral palsy: Plan Srinivasan is a 38-year-old male with PMH of cerebral palsy, seizure, aspiration pneumonia, and chronic restrictive lung disease. He presented on 06/10 for con gestion and productive cough.Found to have chronic left sided lung collapse and aspiration PNA on right, with significant hypoxic respiratory failure. He was admitted and had worsening respiratory failure on 06/12 requiring intubation and bronchoscopy to clear out secretions. He was then quickly extubated to BiPAP at parents' request for comfort and decision made not to reintubate. He had recurrent mucous plugging and decompensation again on 06/13 and had urgent bronchoscopy under sedation for clearance of secretions and some clot. He has been transitioned to high flow NC with titration downward, oral feedings remain in question #Aspiration Pneumonia/Chronic left lung collapse/Severe scoliosis/Acute on chronic respiratory failure with hypoxia-. On 1.5LNC O2 at home. 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 Biofire resp panel neg. Required urgent bronchoscopy 06/14 for respiratory distress this was the third bronchoscopy this hospital stay family has now wish for no additional bronchoscopies MRSA swab neg. Blood cultures NGTD , BAL lavage cxs with pinpoint growth- reincubating, sputum culture pending Continue Cefepime, Flagyl cough assist cautiously as this creates mucous plugging, causes respiratory failure #Severe protein-calorie malnutrition-BMI 14, frail appearing, with risk factors of Cerebral palsy, scoliosis, chronic aspiration -Given recurrent respiratory distress is continue to reinforce n.p.o. status -Given lack of IV access cannot start PPN due to incompatibility with intravenous antiepileptic medication Did ask general surgery to evaluate patient for possible Mediport placement although family has not yet confirmed they wish to pursue artificial feeding in this situation #Cerebral palsy/Seizure disorder/Myoclonic jerks/Functional quadriplegia-no seizures in a long time as per Dad. Pt w/cerebral palsy, wheelchair-bound, and requires total care assist, significant muscular atrophy of upper/lower extremities; non-verbal, with severe scoliosis -Continue Depakote IV twice daily while NPO -Supportive care-Total ADL assist, I&O, off-loading pressure points #Bradycardia/hypotension-bradycardia perhaps secondary to phenylephrine? Not on any AV eric blockers. He also had runs of SVT during episode of severe hypoxia on 06/13. TSH normal. Remains on low-dose of phenylephrine. #Elevated AST-isolated, likely related to possibly some hypotension induced liver injury? -Follow LFTs #Depression-hold po sertraline while NPO #Thrombocytopenia-likely due to acute infection, mild at this time at 94 and stable from previous -follow CBC DVT Proph- Lovenox held due to blood clots found in lungs on bronchoscopy Dispo-continued stay in ICU, prognosis very guarded, discussed care with Dad at bedside on 06/15/24 He is now a DNR/DNIwill have palliative care consultation on 06/16- goals of care Admission and Anticipated Discharge Date Admission Date: June 10, 2024 Subjective Patient noted distressing event requiring a late day bronchoscopic suctioning of trachea due to impaction of secretions, this continues to reinforce concerns over swallowing food of any kind although this occurred without the patient eating. Family is at the bedside and educated by both Dr. Bowman and myself regarding n.p.o. status for future and concerns of nutritional status as the patient had presented with severe malnutrition with a BMI below 20 We discussed possible alternatives being TPN through Mediport versus consideration of a management into a palliative care type of situation. I curb sided general surgery on-call to evaluate to see if the patient is appropriate candidate for Mediport given his body contortion and anatomical changes which may make placement difficult. This is similar to the issue with consideration of a PEG tube or surgical J-tube Physical Exam Physical Exam: arouses to name cardiac is regular lungs are diminished abd, difficult exam due to chronic body positioning Results & Data Results & Data Vital Signs (Past 12 Hours) Vital Signs Temp Pulse Pulse Pulse Resp BP BP 06/15/24 06:00 97.5 F L 54 L 17 98/56 L 06/15/24 05:15 97.3 F L 58 L 17 06/15/24 04:00 97.0 F L 57 L 15 06/15/24 04:00 112/82 06/15/24 03:45 78 17 06/15/24 03:15 96.8 F L 71 15 06/15/24 02:12 96.3 F L 86 17 06/15/24 02:00 130/90 06/15/24 01:00 95.7 F L 93 H 15 06/15/24 00:03 96.1 F L 51 L 0 L 108/80 06/15/24 00:00 54 L 06/14/24 23:00 96.3 F L 62 0 L 06/14/24 22:03 96.3 F L 60 0 L 102/67 06/14/24 21:06 96.1 F L 58 L 0 L 06/14/24 20:34 49 L 22 06/14/24 20:06 95.5 F L 72 0 L 06/14/24 20:00 06/14/24 20:00 102/68 Pulse Ox O2 Del Method O2 Flow Rate FiO2 06/15/24 06:00 93 06/15/24 05:15 92 06/15/24 04:00 92 06/15/24 04:00 06/15/24 03:45 94 High Flow Nasal Cannula 45 40 06/15/24 03:15 94 06/15/24 02:12 95 06/15/24 02:00 06/15/24 01:00 95 06/15/24 00:03 96 06/15/24 00:00 06/14/24 23:00 94 06/14/24 22:03 92 06/14/24 21:06 92 06/14/24 20:34 92 High Flow Nasal Cannula 50 45 06/14/24 20:06 91 06/14/24 20:00 High Flow Nasal Cannula 65 06/14/24 20:00 Laboratory Results Reviewed chemistry profound hypokalemia repleted with repeat lab orders for 9 PM Also profound hypomagnesemia once again repeat lab orders 9 PM PG Care Time/CCT Total # of Minutes Spent Total Time Spent with Patient: Total time spent is greater than 50% in coordination of care (as documented) at patient's floor/unit and/or counseling patient: Coding Level of Care Code 84770 SUB INP/OBS CARE 3/50MIN Diagnoses Pneumonia J18.9 Acute hypoxic respiratory failure J96.01 Cerebral palsy G80.9
--- NOTE | 2024-06-15 07:53 | Critical Care Progress Note ---
Date of Service June 15, 2024 Assessment & Plan (1) Acute hypoxic respiratory failure: (2) Abnormal chest CT: (3) CP (cerebral palsy): (4) Scoliosis: (5) Collapse of left lung: Plan CT chest 06/10/2024 personally reviewed: Chronic collapse of the left side of the lung Atelectasis of the right middle and lower lobe Severe thoracic scoliosis No significant mediastinal lymphadenopathy -- Acute hypoxic respiratory failure Likely secondary to mucous plugging on the right side Patient has chronic collapse of the left lung as evident from CAT scan done in 2021 Intubated 06/12/2024, extubated after bronchoscopy the same day Respiratory BioFire negative for everything on 06/10/2024 Procalcitonin 0.06 Nasal MRSA negative S/p bronchoscopy 06/12/2024, mucous plugging cleared Status post repeat bronchoscopy 06/13/2024 for mucous plugging Needed another emergent bronchoscopy for apneic episodes and hypoxia on 06/14/2024 for mucous plugging --Apneic episodes Could be central Thought process with patient is usually hypoxic and hypercapnic at baseline and we are giving him a lot of oxygen which leads to central sleep apneas Will try to keep oxygen around 90-92% --Patient seems to have Tachy-cinthia syndrome Bouts of tachycardia improving to 170s, Likely SVT Spontaneously resolved Continue to monitor -- Circulatory shock Likely secondary to sedation -- Restrictive lung disease Likely from chronic collapse of the left lung as well as severe scoliosis --DNR/DNI --Prophylaxis VTE: None GI: None Lines: Peripheral Diet: N.p.o. Plan: In/out: +1528, urine output not measured Potassium is being replaced along with magnesium Patient has been bronched 3 days in a row for mucous plugging. After in-depth discussion family understands and would not want any further bronchoscopies and intubations in the future. Continue with Mucomyst and hypertonic saline along with CoughAssist. Unfortunately prognosis is poor especially given that we are not able to give him anything by mouth given the high risk of aspiration. He has very poor access. I do not think PPN or TPN is an option right now. Patient is not a candidate for PEG given his anatomy Inserting a port could be thought of as a long-term remedy as I do not foresee him able to eat by mouth in the near future. Case was discussed with father at bedside I think it is reasonable to get palliative care involved. Case discussed with primary team Please note the above document was generated using voice recognition software. It may contain grammatical, syntax or spelling errors.Any formal questions or concerns about the content, text or information contained within the body of this dictation should be directly addressed to the provider for clarification. Admission and Anticipated Discharge Date Admission Date: June 10, 2024 Subjective Patient seen and examined at bedside. No acute distress, no adverse events overnight He is tolerating CoughAssist without any issues Off of vasopressors He was on 40 L 40% saturating 93-94% Review of Systems 2 Review of Systems: Unobtainable due to cognitive status Physical Exam 2 Physical Exam: Constitutional: No acute distress HEENT: PERRLA Respiratory system: Decreased air entry bilaterally, more decreased on the left, mild expiratory wheeze bilaterally, no rhonchi, positive crackles crackles on the right side CVS: S1-S2 positive Abdomen: Soft, nontender, nondistended, positive bowel sounds x4 Extremities: +2 pulses bilaterally radialis/ dorsalis pedis, no cyanosis, m inimal bilateral pitting ankle edema, +2 edema left upper extremity Neuro: Nonverbal Psych: Unable to assess G/U: No Bazzi Musculoskeletal: Severe scoliosis Skin: no rashes, warm and dry Lymphatic: no cervical or axillary lymphadenopathy Results & Data Results & Data Vital Signs (Past 12 Hours) Vital Signs Temp Pulse Pulse Pulse Resp BP BP 06/15/24 06:00 36.4 C L 54 L 17 98/56 L 06/15/24 05:15 36.3 C L 58 L 17 06/15/24 04:00 36.1 C L 57 L 15 06/15/24 04:00 112/82 06/15/24 03:45 78 17 06/15/24 03:15 36.0 C L 71 15 06/15/24 02:12 35.7 C L 86 17 06/15/24 02:00 130/90 06/15/24 01:00 35.4 C L 93 H 15 06/15/24 00:03 35.6 C L 51 L 0 L 108/80 06/15/24 00:00 54 L 06/14/24 23:00 35.7 C L 62 0 L 06/14/24 22:03 35.7 C L 60 0 L 102/67 06/14/24 21:06 35.6 C L 58 L 0 L 06/14/24 20:34 49 L 22 06/14/24 20:06 35.3 C L 72 0 L 06/14/24 20:00 06/14/24 20:00 102/68 Pulse Ox O2 Del Method O2 Flow Rate FiO2 06/15/24 06:00 93 06/15/24 05:15 92 06/15/24 04:00 92 06/15/24 04:00 06/15/24 03:45 94 High Flow Nasal Cannula 45 40 06/15/24 03:15 94 06/15/24 02:12 95 06/15/24 02:00 06/15/24 01:00 95 06/15/24 00:03 96 06/15/24 00:00 06/14/24 23:00 94 06/14/24 22:03 92 06/14/24 21:06 92 06/14/24 20:34 92 High Flow Nasal Cannula 50 45 06/14/24 20:06 91 06/14/24 20:00 High Flow Nasal Cannula 65 06/14/24 20:00 Laboratory Results 06/13/24 08:16 06/13/24 08:16 Coding Level of Care Code 75366 SUB INP/OBS CARE 3/50MIN Diagnoses Acute hypoxic respiratory failure J96.[address] R93.89 CP (cerebral palsy) G80.9 Scoliosis M41.9 Scoliosis type: unspecified scoliosis Spinal region: unspecified Collapse of left lung J98.11 (4) Scoliosis Scoliosis type: unspecified scoliosis Spinal region: unspecified Qualified Code(s): M41.9 - Scoliosis, unspecified
[2024-06-15 09:22] LABS: BUN Creatinine Ratio 23.5 (10-20); Bilirubin,Total 0.5 mg/dl (0.2-1.0); Magnesium 1.4 mg/dl (1.7-2.4); Potassium 1.9 mmol/L (3.5-5.1)
[2024-06-15] MEDS: D5W IV SCH (10:26)
[2024-06-15] MEDS: POTASSIUM CHLORIDE IV SCH (10:26)
[2024-06-15] MEDS: MAGNESIUM SULFATE / D5W 1 GM/100 ML BAG IV SCH (10:26)
[2024-06-15] MEDS: [UNRECOGNIZED DRUG - OTHER] IV SCH (10:26)
[2024-06-15] MEDS ORDERED: AA 4.25%/D5W 1L 1,000 ML in Peripheral TPN bag 0 ML IV SCH (16:00)
[2024-06-15 21:21] LABS: BUN Creatinine Ratio 16.7 (10-20); Calcium 8.6 mg/dl (8.6-10.3); Creatinine Clr Calc Pharmacy 114.5 ml/min; Magnesium 2.1 mg/dl (1.7-2.4)
[2024-06-16 01:06] LABS: BUN Creatinine Ratio 15.6 (10-20); Creatinine Clr Calc Pharmacy 107.3 ml/min; Potassium 3.6 mmol/L (3.5-5.1)
[2024-06-16] MEDS: ACETAMINOPHEN 325 MG SUPP PR PRN (02:46)
[2024-06-16] MEDS: MoRPHine SULFATE 2 MG/ML CARP IV PRN ×3 (05:31→11:49)
--- NOTE | 2024-06-16 05:41 | Communication Note ---
Date of Service: June 16, 2024 Patient has been having episodes of desaturations through the night and into the morning, requiring NT/OT suctioning to remove secretions, he is also with i ncreased oxygen requirements overnight and now requiring 100% Fio2 and 50L HFNC with oxymask 100% over top of this. He did get a positive pressure breath earlier with BVM with parents request that increased his oxygenation briefly. Patient is now with refractory hypoxia and not able to clear secretions with NT or OT suctioning. All family is present at the bedside as we are unable to improve his oxygenation and he is now with short lived or not any benefits in suctioning, they feel that it is time to proceed to making Srinivasan comfortable. We asked if they would like us to provide morphine for air hunger and pain, and mother affirms that " I think it is time". Morphine provided 2mg IV and with request from family one more attempt to pass suction catheter while he is relaxed to see if able to clear airways, this was again not successful. Mom and Dad want him "to just be comfortable" as we are entering the dying process, they will discuss if they would like to continue both oxygen delivery systems at this time or remove either as I did let them know that this may prolong his time. I have entered morphine for air hunger or gasping as well as Ativan for seizure, and will also provide /Robinul/atropine drops for oral secretion management, and antinausea medications if needed. Shawn MIRANDA ([facility]-)
[2024-06-16] MEDS ORDERED: ONDANSETRON INJ 2 MG/ML 2 ML VIAL IV PRN ×2 (05:49→12:00)
[2024-06-16] MEDS ORDERED: GLYCOPYRROLATE 0.2 MG/ML VIAL IV PRN (05:49)
[2024-06-16] MEDS ORDERED: ATROPINE SULFATE 1% OP SOLN 5 ML BTL SL PRN (05:49)
[2024-06-16] MEDS ORDERED: MoRPHine SULFATE 10 MG/0.5 ML UDP PO PRN (08:12)
[2024-06-16 08:17] VITALS: RESP 20
--- NOTE | 2024-06-16 08:18 | Critical Care Progress Note ---
Date of Service June 16, 2024 Assessment & Plan (1) Acute hypoxic respiratory failure: (2) Abnormal chest CT: (3) CP (cerebral palsy): (4) Scoliosis: (5) Collapse of left lung: Plan Impression: 38-year-old male with severe kyphoscoliosis and cerebral palsy with hypoxemic and hypercarbic respiratory failure. He has failed trials of interventions to try and improve his pulmonary status and is currently transitioning to comfort care measures. Recommendation: 1. Comfort care measures have been initiated. Appropriate to downgrade out of the intensive care unit. Critical care services will sign off. Additional care will be managed by the admitting hospitalist service. Would favor discontinuation of oxygen as it is likely along the patient's dying process however will defer to the primary admitting service. Total of 35 minutes in critical care time was spent in evaluation management coordination of care of this patient with life-threatening critical care illness including end-of-life care Admission and Anticipated Discharge Date Admission Date: June 10, 2024 Subjective Patient evaluated. EMR reviewed. Discussed with overnight critical care THIAGO and off going leach cell operator as well as with bedside critical care nurse. Patient had recurrent episodes of desaturation requiring aggressive respiratory interventions. Family is elected to transition to comfort care measures which were initiated this morning. Review of Systems Review of Systems: Deferred Physical Exam Physical Exam: Deferred Results & Data Results & Data Vital Signs (Past 12 Hours) Vital Signs Temp Pulse Pulse Resp BP Pulse Ox O2 Del Method 06/16/24 06:00 37.6 C H 116 H 0 L 67 L 06/16/24 05:00 38.0 C H 101 H 0 L 93 06/16/24 04:03 37.9 C H 128 H 0 L 94 06/16/24 03:45 123 H 19 94 High Flow Nasal Cannula 06/16/24 03:00 38.2 C H 100 H 0 L 98 06/16/24 02:59 104/77 06/16/24 02:03 38.2 C H 157 H 0 L 92 06/16/24 01:00 38.0 C H 119 H 0 L 91 06/16/24 00:46 102/81 06/16/24 00:06 37.4 C 114 H 0 L 94 06/16/24 00:00 107 H 06/15/24 23:32 100 H 20 91 High Flow Nasal Cannula 06/15/24 23:15 37.2 C 112 H 0 L 90 06/15/24 22:21 101/80 06/15/24 22:00 37.0 C 103 H 0 L 94 06/15/24 21:28 101 H 22 91 High Flow Nasal Cannula 06/15/24 21:12 36.8 C 99 H 0 L 88 L 06/15/24 20:30 36.6 C 96 H 0 L 84 L 06/15/24 20:30 99 H 22 88 L High Flow Nasal Cannula O2 Flow Rate FiO2 06/16/24 06:00 06/16/24 05:00 06/16/24 04:03 06/16/24 03:45 40 70 06/16/24 03:00 06/16/24 02:59 06/16/24 02:03 06/16/24 01:00 06/16/24 00:46 06/16/24 00:06 06/16/24 00:00 06/15/24 23:32 40 70 06/15/24 23:15 06/15/24 22:21 06/15/24 22:00 06/15/24 21:28 50 100 06/15/24 21:12 06/15/24 20:30 06/15/24 20:30 40 60 Critical Care Results & Data Vital Signs (Past 12 Hours) Vital Signs Temp Pulse Pulse Resp BP Pulse Ox O2 Del Method 06/16/24 06:00 37.6 C H 116 H 0 L 67 L 06/16/24 05:00 38.0 C H 101 H 0 L 93 06/16/24 04:03 37.9 C H 128 H 0 L 94 06/16/24 03:45 123 H 19 94 High Flow Nasal Cannula 06/16/24 03:00 38.2 C H 100 H 0 L 98 06/16/24 02:59 104/77 06/16/24 02:03 38.2 C H 157 H 0 L 92 06/16/24 01:00 38.0 C H 119 H 0 L 91 06/16/24 00:46 102/81 06/16/24 00:06 37.4 C 114 H 0 L 94 06/16/24 00:00 107 H 06/15/24 23:32 100 H 20 91 High Flow Nasal Cannula 06/15/24 23:15 37.2 C 112 H 0 L 90 06/15/24 22:21 101/80 06/15/24 22:00 37.0 C 103 H 0 L 94 06/15/24 21:28 101 H 22 91 High Flow Nasal Cannula 06/15/24 21:12 36.8 C 99 H 0 L 88 L 06/15/24 20:30 36.6 C 96 H 0 L 84 L 06/15/24 20:30 99 H 22 88 L High Flow Nasal Cannula O2 Flow Rate FiO2 06/16/24 06:00 06/16/24 05:00 06/16/24 04:03 06/16/24 03:45 40 70 06/16/24 03:00 06/16/24 02:59 06/16/24 02:03 06/16/24 01:00 06/16/24 00:46 06/16/24 00:06 06/16/24 00:00 06/15/24 23:32 40 70 06/15/24 23:15 06/15/24 22:21 06/15/24 22:00 06/15/24 21:28 50 100 06/15/24 21:12 06/15/24 20:30 06/15/24 20:30 40 60 Lab & Micro Results (Past 24 Hours) No Data to Display Na 141 mmol/L (136-145) 06/16/24 K 3.6 mmol/L (3.5-5.1) 06/16/24 Cl 103 mmol/L (98-107) 06/16/24 CO2 35 mmol/L (21-32) H 06/16/24 Anion Gap 3 (3-11) 06/16/24 BUN 5 mg/dl (6-23) L 06/16/24 Creatinine 0.32 mg/dl (0.6-1.4) L 06/16/24 BUN/Creatinine Ratio 15.6 (10-20) 06/16/24 Glu 68 mg/dl (70-99(Fasting)) L 06/16/24 Ca 9.0 mg/dl (8.6-10.3) 06/16/24 Phosphorus Level 3.0 mg/dl (2.5-4.9) 06/15/24 Total Bilirubin 0.5 mg/dl (0.2-1.0) 06/15/24 AST 97 U/L (13-39) H 06/15/24 ALT 32 U/L (7-52) 06/15/24 Alkaline Phosphatase 69 U/L (34-104) 06/15/24 Mg 2.1 mg/dl (1.7-2.4) 06/15/24 20:49 Calcium Level 9.0 mg/dl (8.6-10.3) 06/16/24 00:36 Microbiology 06/10/24 11:24 Aerobic Blood Culture - Final Blood No growth in Aerobic bottle after 5 days. Anaerobic Blood Culture - Final 06/12/24 08:50 Gram Stain - Final Ba Lavage,Right Middle Lobe Bronchial Culture - Final Tala albicans/dubliniensis I & O Totals 24 Hours 06/15/24 06/16/24 06/17/24 06:59 06:59 06:59 Intake Total 1528.408 / 9164.335 3245.500 / 2067.500 Balance 1528.408 / 6433.270 8711.500 / 2067.500 Cumulative 06/10/24 10:45 thru 06/16/24 06:00 Intake Total 9547.797 Output Total 1 Balance 9546.797 RT Ventilator Mngmt (Last Documented) Ventilator Ordered Settings Ventilator Support Mode Assist Control 06/12/24 08:40 Respiratory Rate 0 06/16/24 06:00 Ventilator Tidal Volume 330 06/12/24 08:40 Setting Minute Ventilation 6.5 06/12/24 08:40 Positive End Expiratory 6 06/12/24 08:40 Pressure Fraction of Inspired Oxygen 70 06/16/24 03:45 Ventilator - PT Measurements Respiratory Rate 0 Exhaled Tidal Volume 335 Minute Ventilation 6.5 Peak Inspiratory Airway 33 Pressure Plateau Pressure 14 Respiratory Cycle Inspiratory: 1:2.4 Expiratory Ratio Inspiratory Phase Time 0.7 End-Tidal CO2 28 Static Lung Compliance 41.88 Dynamic Lung Compliance 12.41 Normal Static Lung Compliance 42.00 Patient Measurements Comment patient extubated to bipap per dr. medellin Coding Level of Care Code 64717 CRITICAL CARE 1ST 30-74M Diagnoses Acute hypoxic respiratory failure J96.[address] R93.89 CP (cerebral palsy) G80.9 Scoliosis M41.9 Scoliosis type: unspecified scoliosis Spinal region: unspecified Collapse of left lung J98.11 (4) Scoliosis Scoliosis type: unspecified scoliosis Spinal region: unspecified Qualified Code(s): M41.9 - Scoliosis, unspecified
[2024-06-16 08:25] VITALS: BP 102/70
[2024-06-16 08:26] VITALS: TEMP 98.8
--- NOTE | 2024-06-16 09:33 | Hospitalist Progress Note ---
Date of Service June 16, 2024 Assessment & Plan (1) Pneumonia: (2) Acute hypoxic respiratory failure: (3) Cerebral palsy: Plan Srinivasan is a 38-year-old male with PMH of cerebral palsy, seizure, aspiration pneumonia, and chronic restrictive lung disease. He presented on 06/10 for con gestion and productive cough.Found to have chronic left sided lung collapse and aspiration PNA on right, with significant hypoxic respiratory failure. He was admitted and had worsening respiratory failure on 06/12 requiring intubation and bronchoscopy to clear out secretions. He was then quickly extubated to BiPAP at parents' request for comfort and decision made not to reintubate. He had recurrent mucous plugging and decompensation again on 06/13 and had urgent bronchoscopy under sedation for clearance of secretions and some clot. He has been transitioned to high flow NC with titration downward, oral feedings remain in question #Aspiration Pneumonia/Chronic left lung collapse/Severe scoliosis/Acute on chronic respiratory failure with hypoxia-. On 1.5LNC O2 at home. 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 Biofire resp panel neg. Required urgent bronchoscopy 06/14 for respiratory distress this was the third bronchoscopy this hospital stay family has now wish for no additional bronchoscopies MRSA swab neg. Blood cultures NGTD , BAL lavage cxs with pinpoint growth- reincubating, sputum culture pending Continue Cefepime, Flagyl cough assist cautiously as this creates mucous plugging, causes respiratory failure #Severe protein-calorie malnutrition-BMI 14, frail appearing, with risk factors of Cerebral palsy, scoliosis, chronic aspiration -Given recurrent respiratory distress is continue to reinforce n.p.o. status -Given lack of IV access cannot start PPN due to incompatibility with intravenous antiepileptic medication Did ask general surgery to evaluate patient for possible Mediport placement although family has not yet confirmed they wish to pursue artificial feeding in this situation #Cerebral palsy/Seizure disorder/Myoclonic jerks/Functional quadriplegia-no seizures in a long time as per Dad. Pt w/cerebral palsy, wheelchair-bound, and requires total care assist, significant muscular atrophy of upper/lower extremities; non-verbal, with severe scoliosis -Continue Depakote IV twice daily while NPO -Supportive care-Total ADL assist, I&O, off-loading pressure points #Bradycardia/hypotension-bradycardia perhaps secondary to phenylephrine? Not on any AV eric blockers. He also had runs of SVT during episode of severe hypoxia on 06/13. TSH normal. Remains on low-dose of phenylephrine. #Elevated AST-isolated, likely related to possibly some hypotension induced liver injury? -Follow LFTs #Depression-hold po sertraline while NPO #Thrombocytopenia-likely due to acute infection, mild at this time at 94 and stable from previous -follow CBC DVT Proph- Lovenox held due to blood clots found in lungs on bronchoscopy Dispo-continued stay in ICU, prognosis very guarded, discussed care with Dad at bedside on 06/15/24 He is now a DNR/DNIwill have palliative care consultation on 06/16- goals of care Admission and Anticipated Discharge Date Admission Date: June 10, 2024 Results & Data Results & Data Vital Signs (Past 12 Hours) Vital Signs Temp Pulse Pulse Resp BP Pulse Ox O2 Del Method 06/16/24 08:14 113 H 20 91 High Flow Nasal Cannula 06/16/24 08:03 98.8 F 113 H 88 L High Flow Nasal Cannula 06/16/24 08:00 102/70 06/16/24 06:00 99.7 F H 116 H 0 L 67 L 06/16/24 05:00 100.4 F H 101 H 0 L 93 06/16/24 04:03 100.2 F H 128 H 0 L 94 06/16/24 03:45 123 H 19 94 High Flow Nasal Cannula 06/16/24 03:00 100.8 F H 100 H 0 L 98 06/16/24 02:59 104/77 06/16/24 02:03 100.8 F H 157 H 0 L 92 06/16/24 01:00 100.4 F H 119 H 0 L 91 06/16/24 00:46 102/81 06/16/24 00:06 99.3 F 114 H 0 L 94 06/16/24 00:00 107 H 06/15/24 23:32 100 H 20 91 High Flow Nasal Cannula 06/15/24 23:15 99.0 F 112 H 0 L 90 06/15/24 22:21 101/80 06/15/24 22:00 98.6 F 103 H 0 L 94 O2 Flow Rate FiO2 06/16/24 08:14 50 100 06/16/24 08:03 06/16/24 08:00 06/16/24 06:00 06/16/24 05:00 06/16/24 04:03 06/16/24 03:45 40 70 06/16/24 03:00 06/16/24 02:59 06/16/24 02:03 06/16/24 01:00 06/16/24 00:46 06/16/24 00:06 06/16/24 00:00 06/15/24 23:32 40 70 06/15/24 23:15 06/15/24 22:21 06/15/24 22:00 PG Care Time/CCT Total # of Minutes Spent Total Time Spent with Patient: Total time spent is greater than 50% in coordination of care (as documented) at patient's floor/unit and/or counseling patient: Coding Diagnoses Pneumonia J18.9 Acute hypoxic respiratory failure J96.01 Cerebral palsy G80.9
[2024-06-16] MEDS: LORazepam 2 MG/1 ML VIAL IV PRN (09:59)
[2024-06-16 10:07] VITALS: PULSE 112; O2SAT 92
[2024-06-16] MEDS ORDERED: STAT IV Infusion **Titration per Protocol STA (12:00)
[2024-06-16] MEDS ORDERED: MoRPHine BOLUS from BAG IV PRN (12:00)
[2024-06-16] MEDS: MoRPHine SULF 100 MG/100 ML BAG IV SCH (12:26)
[2024-06-16] MEDS: MoRPHine BOLUS from BAG IV PRN (12:27)
--- NOTE | 2024-06-16 13:29 | Death Pronouncement Note ---
Date of Service June 16, 2024 Pronouncement Note Admission Date June 10, 2024 Date and Time of Date of : 06/16/24 Time of : 13:24 Preliminary Cause of (1) Pneumonia: (2) Acute hypoxic respiratory failure: (3) Cerebral palsy: Summary see discharge summary same DOS Additional Data Confirmation of : no pulse, no respirations, no heart sounds and pupils fixed and dilated Family: at bedside Attending/PCP notified?: Yes Attending physician: Martina Knox MD Was code activated?: No Autopsy requested?: No Coding Level of Care Code 19464 IN/OBS DISCH 30 MIN/LESS Diagnoses Pneumonia J18.9 Acute hypoxic respiratory failure J96.01 Cerebral palsy G80.9
--- NOTE | 2024-06-16 13:30 | Discharge Summary ---
Discharge Summary Date of Service June 16, 2024 Principal Dx & Hospital Course #1 = Principal Diagnosis (1) Pneumonia: (2) Acute hypoxic respiratory failure: (3) Cerebral palsy: Slim Mattson is a 38-year-old male with PMH of cerebral palsy, seizure, aspiration pneumonia, and chronic restrictive lung disease. He presented on 06/10 for congestion and productive cough.Found to have chronic left sided lung collapse and aspiration PNA on right, with significant hypoxic respiratory failure. He was admitted and had worsening respiratory failure on 06/12 requiring intubation and bronchoscopy to clear out secretions. He was then quickly extubated to BiPAP at parents' request for comfort and decision made not to reintubate. He had recurrent mucous plugging and decompensation again on 06/13 and again 06/14 requiring urgent bronchoscopies under sedation for clearance of secretions and some clot. He was been transitioned to BiPAP and then high flow NC with titration downward. He was treated with Cefepime and Flagy. had only Tala grow out on sputum cx, no bacteremia. He was kept NPO and had no oral feeds for 5 days. Had another acute decompensation of respiratory status the AM of 06/16 requiring bagging and max amounts of supplemental O2. Decision then made to pursue comfort measures only. #Aspiration Pneumonia/Chronic left lung collapse/Severe scoliosis/Acute on chronic respiratory failure with hypoxia-. On 1.5LNC O2 at home. 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 Biofire resp panel neg. 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 Pt w/cerebral palsy, wheelchair-bound, and requires total care assist, significant muscular atrophy of upper/lower extremities; non-verbal, with severe scoliosis -received Depakote IV twice daily while NPO #Bradycardia/hypotension-bradycardia perhaps secondary to phenylephrine. Not on any AV eric blockers. He also had runs of SVT during episode of severe hypoxia on 06/13. TSH normal. Weaned off phenylephrine #Elevated AST-isolated, likely related to possibly some hypotension induced liver injury #Depression-held po sertraline while NPO #Thrombocytopenia-likely due to acute infection, mild DVT Proph- Lovenox held due to blood clots found in lungs on bronchoscopy Dispo- Admission HPI Per Admitting Provider Srinivasan is a 38-year-old male with PMH of cerebral palsy, seizure, aspiration pneumonia, and chronic restrictive lung disease. He presented on 06/10 for congestion and productive cough. Patient is nonverbal at baseline. Patient's clinical team lead/nurse (Lina) is at bedside and provides history. She reports that the patient normally has clear/loose phlegm production, but over the past few days it has grown thick/white, and has been difficult to clear from his lungs. No fevers at home. Initially, the patient was on antibiotics at the beginning of May for an ear infection, but has had worsening convention since this time. Patient completed course of doxycycline, azithromycin, and levofloxacin without improvement. Patient's nurse reports that his SpO2 was 92% on RA this morning. He does use supplemental oxygen when he sleeps (1.5 L NC). No CPAP at night. Patient took his regular morning medicine today, including his Depakote. Nurse reports that he does not have difficulty swallowing, and usually takes his medication with applesauce, but he does have a full pured diet. No prior history of DVT/PE to her knowledge. In regard to the penicillin allergy listed, both patient's nurse/mother confirms that he only had a mild rash when he was a baby, and they are unsure if it is a true penicillin allergy. Patient was hypoxic on arrival at SpO2 of 70% on RA. Vitals otherwise stable. ED course: Ceftriaxone 2000 mg IV NSS 1250 mL IV Unable to obtain ROS at this time: Discussed with patient's mother (Meme) over the phone and confirmed that the patient is a full code. Discharge Exam Constitutional Pronounced on 06/16 at 1324. See pronouncement Discharge Plan Discharge Items Patient Disposition: Reason For Visit: HYPOXIC, PNA Follow-up/Referrals: Pro,Alexys Farmer MD [Primary Care Provider] - Medications and DC Order Prescriptions: No Action fluticasone propionate 50 mcg/actuation spray,suspension 2 spray INTNAS DAILY Qty: 48 3RF Rx Instructions: administer into each nostril polyethylene glycol 3350 [Miralax] 17 gram/dose powder 17 g PO TID PRN (Reason: constipation) Qty: 850 0RF econazole nitrate 1 % cream 1 applic TOP BID PRN (Reason: rash) Qty: 30 1RF nystatin 100,000 unit/gram cream 1 applic topical BID PRN (Reason: rash) Qty: 30 1RF divalproex [Depakote Sprinkles] 125 mg capsule, delayed rel sprinkle 500 mg PO BID 90 Days Qty: 720 3RF Rx Instructions: Brand medically necessary nystatin 100,000 unit/gram powder 1 applic topical BID PRN (Reason: fungal infections) Qty: 30 1RF sertraline 20 mg/mL concentrate 0 mg PO HS Rx Instructions: Per caregiver, she gives the pt 10mg (0.5ml) by mouth daily as bedtime. Originally written for 20mg by mouth at bedtime (DME) Oxygen Home Liters Per Minute See Rx Instructions .Route Rx Instructions: 1.5 liters via N/C while sleeping per [facility] discharge albuterol sulfate 2.5 mg /3 mL (0.083 %) solution for nebulization 2.5 mg INH Q6H PRN (Reason: asthma) Qty: 180 3RF acetaminophen [Children's Tylenol] 160 mg/5 mL Suspension 160 mg PO QID PRN (Reason: Pain/Fever) Admission Data Admit Date/Time: 06/10/24 15:09 Attending Provider: Martina Knox Admit Provider: Russel Cedillo Primary Care Provider: Alexys Villalta Other Providers: Jam Bwoman; Cherie Zapata Hospital Stay Data Consultations 06/10/24 16:18 Consult Pulmonology Routine 06/12/24 10:07 Consult Jack Machine Operator Stat 06/16/24 08:00 Consult Palliative Care Routine Diagnostic Imagining Performed 06/10/24 14:49 CT angio chest PE protocol Stat 06/15/24 10:18 US point of care ultrasound Urgent Total Time Total Time Spent Total Time Spent (In Minutes): 25 min Coding Level of Care Code 59700 IN/OBS DISCH 30 MIN/LESS Diagnoses Pneumonia J18.9 Acute hypoxic respiratory failure J96.01 Cerebral palsy G80.9
== END 2024-06-16 15:59 | disposition expired | DRG 981 ==
LOC: ED 10:45 → SUATTDRO 15:09 → 2S 15:09 → 1E 06-12 08:48